=== PATIENT | female | born 1945 | race Caucasian/White ===

== ENCOUNTER 2020-02-17 10:34 | Inpatient (IN) | payer MEDICARE ==
[~2020-02-17] VITALS: Ht 167.6 cm; Wt 77.9 kg
[2020-02-17] VITALS (14 sets, daily range): BP systolic 80–119; BP diastolic 49–66
[2020-02-17] MEDS ORDERED: MIDAZOLAM HCL/PF 5 MG/5 ML VIAL. ONE ×2 (11:24→11:30)
--- NOTE | 2020-02-17 11:59 | RAD ---
Exam performed: One view chest HISTORY: Tube placement. DATE OF SERVICE: 02/17/2020. COMPARISON: None available Findings and impression: Single AP upright portable view of the chest is obtained. Heart size and mediastinal silhouette is wi thin limits of normal. The pulmonary vascular is unremarkable. Diffuse airspace infiltrates are seen in both lungs. No pleural effusion or pneumothorax is seen. There is a feeding tube terminating in th e stomach. Endotracheal tube terminates at the level of clavicles. Electronically signed by: Yolanda Gonzalez MD (02/17/2020 11:56 AM) [facility]
[2020-02-17] MEDS ORDERED: INFLUENZA VAX SCREEN BY RX. MC PRN (12:00)
--- NOTE | 2020-02-17 12:10 | NUR ---
Dr. Aguirre notified of pts admission, labs and medications reviewed. New orders received.
[2020-02-17 12:25] LABS: BASE EXCESS ABG -1 mmol/L (-3-3); HCO3 ABG 23 mmol/L (21-28); PCO2 ABG 35 mmHg (35-46); PO2 ABG 71 mmHg (65-108); SAT O2 ABG 93 % (92-99)
[2020-02-17 12:28] LABS: FIO2 ABG 100
[2020-02-17] MEDS ORDERED: POLYVINYL ALCOHOL 1.4% OPHTH SOLUTION 15ML BOTTLE. OU PRN (12:30)
[2020-02-17] MEDS: LISINOPRIL 20 MG TABLET PO SCH (12:30)
[2020-02-17] MEDS: guaiFENesin DM 600/30MG 1 TAB TAB.ER.12H PO SCH ×2 (12:30→20:23)
[2020-02-17] MEDS: AZITHROMYCIN 250 MG TABLET. PO SCH (12:30)
--- NOTE | 2020-02-17 12:40 | NUR ---
Dr. Tse notified of pts admission and consult. ABG results and vent settings reviewed. No new orders at this time.
[2020-02-17] MEDS: PIPERACILLIN/TAZOBACTAM 3.375 GM in IV NORMAL SALINE 50ML 50 ML IV SCH ×3 (13:14→23:56)
[2020-02-17] MEDS: FAMOTIDINE 20 MG/2 ML VIAL IVP SCH ×2 (13:14→20:31)
[2020-02-17] MEDS: DEXAMETHASONE SOD PHOS 4 MG/ML VIAL IVP SCH ×3 (13:14→23:56)
[2020-02-17] MEDS ORDERED: LISI20TA18 PO (14:00)
[2020-02-17] MEDS ORDERED: AMLO5TAB4 PO (14:00)
--- NOTE | 2020-02-17 14:50 | NUR ---
Pt admitted to room 112 from [facility] ICU via EMS on ventilator at 1115. Pt sedated on propofol. PT transferred to ICU bed, attached to monitoring equipment and out vent. See Vital signs and assessment for further details.
[2020-02-17] MEDS: PROPOFOL 100 ML IV PRN (15:25)
--- NOTE | 2020-02-17 17:00 | CONS ---
DATE OF CONSULTATION: 02/17/2020 PULMONARY CONSULTATION ATTENDING PHYSICIAN: Dr. Aguirre. REASON FOR CONSULTATION: Respiratory failure, ARDS, COVID-19 pneumonia. HISTORY OF PRESENT ILLNESS: The patient is a 74-year-old female who has past medical history of hypertension. She is a nonsmoker. She was diagnosed with COVID-19 infection 2 weeks ago. She presented to [facility] with progressive dyspnea and hypoxia. She was initially requiring high flow oxygen and was placed on BiPAP. However, due to persistent hypoxia. She was intubated at [facility] Emergency Room and transferred to our facility. At present, she is on assist control mode. She is on 100% oxygen with a PEEP of 6. She had a CT angiogram done at [facility]. I have reviewed the CT chest. There were diffuse extensive bilateral ground glass and interstitial/alveolar infiltrates. No pulmonary embolism was seen. Her chest x-ray post-intubation showed again bilateral diffuse infiltrates. Her arterial blood gases post-intubation showed a pH of 7.43, pCO2 of 35 and a pO2 of 71, bicarbonate of 23. This is on assist control rate of 16, tidal volume 450, 100% FiO2 and PEEP of 6. I have been asked to see her for further evaluation. She is intubated and sedated. A consultation was done via telemedicine. PAST MEDICAL HISTORY: Hypertension. PAST SURGICAL HISTORY: No recent surgeries. ALLERGIES: None. SOCIAL HISTORY: Nonsmoker. MEDICATIONS: All reviewed as listed in the MRAD including antibiotics, dexamethasone and Lovenox for DVT prophylaxis. REVIEW OF SYSTEMS: Unable to obtain from the patient as she is intubated. PHYSICAL EXAMINATION: On examination, which was done via telemedicine: GENERAL: She is intubated and sedated on assist control mode. There is no paradoxical breathing. She is not obese. EXTREMITIES: With no rash and no leg edema. LABORATORY DATA: From [facility] were reviewed. White cell count 14.5, hemoglobin 14.3, platelets 427. D-dimer 12.63. Sodium 138, potassium 3.6, chloride 101, bicarbonate 26, BUN 7, and creatinine 0.9. IMPRESSION: 1. Acute hypoxic respiratory failure secondary to COVID-19 pneumonia/ARDS/acute lung injury. 2. Abnormal CT chest with diffuse and extensive bilateral infiltrates consistent with COVID-19 pneumonia. Cannot exclude superimposed bacterial pneumonia. No evidence of pulmonary embolism. 3. High D-dimer. Commonly seen in patients with COVID-19 pneumonia. We will defer high dose DVT prophylaxis. 4. No significant reported tobacco history. RECOMMENDATIONS: 1. Continue present assist control mode at 100% FiO2, tidal volume 450. I would increase the PEEP from 6-7. 2. Follow ABGs and make necessary adjustments. 3. Continue sedation with Versed and fentanyl. 4. High dose DVT prophylaxis with Lovenox. 5. Empiric antibiotics with Levaquin and Zosyn. 6. Continue IV dexamethasone with slow and gradual taper over 10 days. 7. Discussed with RN. Imaging studies reviewed. Labs reviewed. Critical care time 33 minutes. KYM LOPEZ MD DR: MINDA/gabriela JOB#: [id number] / [id number]
[2020-02-17] MEDS: ENOXAPARIN 40 MG/0.4 ML SYRINGE. SQ SCH (20:31)
[2020-02-17] MEDS ORDERED: ENOXAPARIN 40 MG/0.4 ML SYRINGE. SQ SCH (21:00)
[2020-02-17] MEDS: MIDAZOLAM 100mg/100ml NS BAG 100 ML IV PRN (23:59)
[2020-02-18] VITALS (24 sets, daily range): BP systolic 84–108; BP diastolic 50–62
[2020-02-18] MEDS: PIPERACILLIN/TAZOBACTAM 3.375 GM in IV NORMAL SALINE 50ML 50 ML IV SCH ×3 (05:38→18:10)
[2020-02-18] MEDS: DEXAMETHASONE SOD PHOS 4 MG/ML VIAL IVP SCH ×3 (05:38→18:09)
[2020-02-18 05:58] LABS: BASO % 0 % (0-3); EOS % 0 % (0-3); HEMATOCRIT 36.5 % (36.0-47.0); LYMPH # 0.7 x10^3/uL (1.0-4.8); LYMPH % 7 % (24-48); MEAN CORPUSCULAR HEMOGLOBIN 29 pg (25-35); MEAN CORPUSCULAR HGB CONC 33 g/dL (31-37); MEAN CORPUSCULAR VOLUME 87 fL (79-100); MONO # 0.6 x10^3/uL (0.0-1.1); MONO % 5 % (0-9); NEUT # 9.8 x10^3/uL (1.8-7.7); NEUT % 88 % (31-73); PLATELET COUNT 279 x10^3/uL (140-400); RED BLOOD COUNT 4.18 x10^6/uL (3.50-5.40); RED CELL DISTRIBUTION WIDTH 13.5 % (11.5-14.5); WHITE BLOOD COUNT 11.1 x10^3/uL (4.0-11.0)
[2020-02-18 06:18] LABS: ALBUMIN 1.9 g/dL (3.4-5.0); ALBUMIN/GLOBULIN RATIO 0.4 (1.0-1.7); CALCIUM 8.4 mg/dL (8.5-10.1); CREATININE 0.7 mg/dL (0.6-1.0); GFR 81.6; POTASSIUM 3.5 mmol/L (3.5-5.1); TOTAL BILIRUBIN 0.3 mg/dL (0.2-1.0)
[2020-02-18] MEDS: guaiFENesin DM 600/30MG 1 TAB TAB.ER.12H PO SCH ×2 (07:41→20:34)
--- NOTE | 2020-02-18 07:58 | NUR ---
BP medications not given due to SBP below 100 because of sedation medication
[2020-02-18] MEDS: LISINOPRIL 20 MG TABLET PO SCH (07:59)
[2020-02-18] MEDS: FAMOTIDINE 20 MG/2 ML VIAL IVP SCH (08:11)
[2020-02-18] MEDS: AZITHROMYCIN 250 MG TABLET. PO SCH (08:11)
[2020-02-18] MEDS: ENOXAPARIN 40 MG/0.4 ML SYRINGE. SQ SCH ×2 (08:12→20:35)
[2020-02-18 08:25] LABS: BASE EXCESS ABG 0 mmol/L (-3-3); HCO3 ABG 24 mmol/L (21-28); PCO2 ABG 38 mmHg (35-46); PO2 ABG 73 mmHg (65-108); SAT O2 ABG 94 % (92-99)
[2020-02-18 08:28] LABS: FIO2 ABG 100%+7
--- NOTE | 2020-02-18 09:25 | HP ---
ADMIT DATE: 02/17/2020 HISTORY OF PRESENT ILLNESS: The patient is a 74-year-old female patient who presented to the Emergency Room of [facility] with increasing shortness of breath. She was tested positive for COVID-19 three weeks prior to admission and has had dry hacking cough. She did well until about 2-3 days ago when her cough has gotten progressively worse and started feeling weak. She called primary care physician and was advised to come to the Emergency Room. Her initial evaluation showed that she has bilateral pneumonic infiltrate and respiratory distress. She was admitted to the ICU of [facility], was started on antibiotics; however, she continued to worsen and despite being on 100% nonrebreather mask, her oxygen saturation was only 70% and therefore the patient was intubated and was transferred to [facility] ICU to continue on mechanical ventilation. Continue antibiotic therapy and to consult the [facility] [facility]. PAST MEDICAL HISTORY: Significant for hypertension. PAST SURGICAL HISTORY: Unremarkable. FAMILY HISTORY: Noncontributory. SOCIAL HISTORY: She does not smoke, drink alcohol or recreational drugs. Her code status is full. ALLERGIES: She has no known drug allergies. HOME MEDICATIONS: Consist of Cipro, Flagyl, amlodipine and lisinopril. REVIEW OF SYSTEMS: Unobtainable. PHYSICAL EXAMINATION: GENERAL: On examining her, the patient was intubated, mechanically ventilated. VITAL SIGNS: Her heart rate on arrival to the [facility] was 70, blood pressure was 106/65, temperature was 99, respiratory rate was 23, and oxygen saturation was 97% on FiO2 of 100%. HEAD, EYES, EARS, NOSE AND THROAT: Showed normocephalic, atraumatic. NECK: Supple. HEART: Normal first and second heart sounds. No gallop or murmur. CHEST: Shows central trachea, equal bilateral expansion, air entry expanse. I could not really appreciate any crepitation or rhonchi anteriorly. ABDOMEN: Distended, soft, nontender. NEUROLOGIC: She is sedated; however she moves all extremities spontaneously. LABORATORY DATA: Done at [facility] showed her white cell count was 9600, hemoglobin 13, hematocrit 39, MCV 19 and platelet count 277,000. Manual differential showed 92% polymorphs, 6% lymphocytes and 2% monocytes. Her serum sodium was 137, potassium 3.8, chloride 103, bicarbonate 25, anion gap of 9, BUN 13, creatinine 0.8, estimated GFR was 70 mL per minute. Her glucose was 133, calcium was 8.2. Her lactic acid was down to 1.5. Her blood gases on admission; pH 7.49, pCO2 of 32, pO2 of 57, bicarbonate 24, and oxygen saturation was 91% on FiO2 of 58%. Her prothrombin time was 10.8, INR 1, aPTT was 57 and D-dimer was 12.63. Urinalysis showed the urine was yellow, clear with a pH of 7, specific gravity of 1.010, urine was negative for protein, glucose, ketones, small amount of blood, negative for nitrite and leukocyte esterase with 3-5 rbc's, 5-10 wbc's, and very few bacteria. Urine drug screen was negative. The patient has had a chest x-ray on admission, which showed that the patient has multifocal airspace consolidation involving the lateral right upper lobe, left upper lobe and lingula, was treated with multifocal pneumonia, pulmonary edema is less likely consideration. She did have CT angio as her D-dimer was extremely high and the CT scan of the chest showed no evidence of pulmonary arterial emboli, extensive ground glass and consolidative pulmonary opacities most typical of an infectious inflammatory process. A component of ARDS, noncardiogenic pulmonary edema could also be a possibility given the patient's diagnosis of COVID-19 infection, COVID pneumonia likely at times with these findings, peripheral bilateral ground glass opacities with and without consolidation or crazy waving or reverse halo sign. Other processes such as influenza, pneumonia, organizing pneumonia can be seen with ____ and connective tissue disease can cause similar imaging pattern. She has a 4 cm right thyroid mass and mild ____ adenopathy. ASSESSMENT AND PLAN: The patient was treated with IV antibiotic in the form of levofloxacin, piperacillin and Zithromax as well as dexamethasone together was continued on her lisinopril and amlodipine and was given a dose of furosemide before she was transferred to [facility] with the final admission diagnosis of COVID-19 pneumonia, acute hypoxic respiratory failure, ARDS,hypertension SEUN SOSA MD DR: GUERLINE/gabriela JOB#: [id number] / [id number]
--- NOTE | 2020-02-18 09:41 | PN ---
DATE: 02/18/2020 SUBJECTIVE: The patient is resting, slightly propped up in bed, continued to be sedated, intubated and mechanically ventilated. PHYSICAL EXAMINATION: GENERAL: When I examined her, there was no pallor, jaundice, cyanosis or thyromegaly. No jugular venous distention. No lower limb edema. VITAL SIGNS: Her heart rate was 51, blood pressure was 101/60, temperature 99, respiratory rate was 17 and oxygen saturation was 99% on FiO2 of 100%. HEAD, EYES, EARS, NOSE, AND THROAT: Showed normocephalic, atraumatic. She has orotracheal and orogastric tube in place. NECK: Supple. HEART: Normal first and second heart sounds. No gallop, rub or murmur. CHEST: Clear to auscultation. No crepitation or rhonchi anteriorly. ABDOMEN: Distended, soft, nontender. NEUROLOGIC: She is sedated, but able to move all her extremities spontaneously. Her intake and output are incompletely recorded. LABORATORY DATA: Her lab work this morning showed a white cell count of 11,100; hemoglobin 12; hematocrit 36; MCV 87 and platelet count of 279,000. Her chemistry showed a serum sodium 141, potassium 3.5, chloride 107, bicarbonate 28, anion gap of 66, BUN 24, creatinine 0.7, estimated GFR was 81 mL per minute. Her glucose 145, calcium was 8.4. Total bilirubin, AST, ALT, alkaline phosphatase were normal. Total protein 7, albumin was 1.9. Her blood gases this morning showed a pH of 7.43, pCO2 of 35, pO2 of 71, bicarbonate 23, and oxygen saturation was 93% on FiO2 of 100%. Her chest x-ray again showed the heart size and mediastinal silhouette as within normal limits. She had pulmonary vasculature unremarkable. She has diffuse airspace infiltrates, are seen in both lungs. No pleural effusion or pneumothorax seen. There is a feeding tube terminating in the stomach. Endotracheal tube terminates at the level of the clavicle. ASSESSMENT: 1. COVID-19 pneumonia. 2. Acute hypoxic respiratory failure. 3. Acute respiratory distress syndrome. 4. Hypertension, however, the patient is in fact hypotensive. PLAN: Obviously to continue on levofloxacin. Given her blood pressure, I will discontinue her amlodipine and lisinopril. She is already on Zosyn and levofloxacin and I will probably discontinue her Zithromax. We have already consulted the eviscerator. SEUN SOSA MD DR: GUERLINE/gabriela JOB#: [id number] / [id number]
--- NOTE | 2020-02-18 09:43 | PDOC ---
PULMONARY PROGRESS NOTES DATE: 02/18/20 TIME: 09:38 Subjective Pt. is on vent support 100% and PEEP of 7 afebrile overnight no concerns from nursing Vitals Vital Signs Date Time Temp Pulse Resp B/P (MAP) Pulse Ox O2 Delivery O2 Flow Rate FiO2 02/18/20 08:00 Mechanical Ventilator 02/18/20 08:00 98.0 52 16 102/59 (73) 99 98.0 Comments Pt. seen during visual exam preformed, RRR VENT no distress or accessory muscle use no obvious edema or rash Labs Laboratory Tests Test 02/17/20 12:14 02/18/20 05:30 02/18/20 08:15 O2 Saturation 93 % (92-99) 94 % (92-99) Arterial Blood pH 7.43 (7.35-7.45) 7.42 (7.35-7.45) Arterial Blood pCO2 at Patient Temp 35 mmHg (35-46) 38 mmHg (35-46) Arterial Blood pO2 at Patient Temp 71 mmHg (65-108) 73 mmHg (65-108) Arterial Blood HCO3 23 mmol/L (21-28) 24 mmol/L (21-28) Arterial Blood Base Excess -1 mmol/L (-3-3) 0 mmol/L (-3-3) FiO2 100 100%+7 White Blood Count 11.1 x10^3/uL (4.0-11.0) Red Blood Count 4.18 x10^6/uL (3.50-5.40) Hemoglobin 12.0 g/dL (12.0-15.5) Hematocrit 36.5 % (36.0-47.0) Mean Corpuscular Volume 87 fL (79-100) Mean Corpuscular Hemoglobin 29 pg (25-35) Mean Corpuscular Hemoglobin Concent 33 g/dL (31-37) Red Cell Distribution Width 13.5 % (11.5-14.5) Platelet Count 279 x10^3/uL (140-400) Neutrophils (%) (Auto) 88 % (31-73) Lymphocytes (%) (Auto) 7 % (24-48) Monocytes (%) (Auto) 5 % (0-9) Eosinophils (%) (Auto) 0 % (0-3) Basophils (%) (Auto) 0 % (0-3) Neutrophils # (Auto) 9.8 x10^3/uL (1.8-7.7) Lymphocytes # (Auto) 0.7 x10^3/uL (1.0-4.8) Monocytes # (Auto) 0.6 x10^3/uL (0.0-1.1) Eosinophils # (Auto) 0.0 x10^3/uL (0.0-0.7) Basophils # (Auto) 0.0 x10^3/uL (0.0-0.2) Sodium Level 141 mmol/L (136-145) Potassium Level 3.5 mmol/L (3.5-5.1) Chloride Level 107 mmol/L (98-107) Carbon Dioxide Level 28 mmol/L (21-32) Anion Gap 6 (6-14) Blood Urea Nitrogen 24 mg/dL (7-20) Creatinine 0.7 mg/dL (0.6-1.0) Estimated GFR (Cockcroft-Gault) 81.6 BUN/Creatinine Ratio 34 (6-20) Glucose Level 145 mg/dL (70-99) Calcium Level 8.4 mg/dL (8.5-10.1) Total Bilirubin 0.3 mg/dL (0.2-1.0) Aspartate Amino Transf (AST/SGOT) 19 U/L (15-37) Alanine Aminotransferase (ALT/SGPT) 25 U/L (14-59) Alkaline Phosphatase 65 U/L (46-116) Total Protein 7.0 g/dL (6.4-8.2) Albumin 1.9 g/dL (3.4-5.0) Albumin/Globulin Ratio 0.4 (1.0-1.7) Laboratory Tests Test 02/17/20 12:14 02/18/20 05:30 02/18/20 08:15 O2 Saturation 93 % (92-99) 94 % (92-99) Arterial Blood pH 7.43 (7.35-7.45) 7.42 (7.35-7.45) Arterial Blood pCO2 at Patient Temp 35 mmHg (35-46) 38 mmHg (35-46) Arterial Blood pO2 at Patient Temp 71 mmHg (65-108) 73 mmHg (65-108) Arterial Blood HCO3 23 mmol/L (21-28) 24 mmol/L (21-28) Arterial Blood Base Excess -1 mmol/L (-3-3) 0 mmol/L (-3-3) FiO2 100 100%+7 White Blood Count 11.1 x10^3/uL (4.0-11.0) Red Blood Count 4.18 x10^6/uL (3.50-5.40) Hemoglobin 12.0 g/dL (12.0-15.5) Hematocrit 36.5 % (36.0-47.0) Mean Corpuscular Volume 87 fL (79-100) Mean Corpuscular Hemoglobin 29 pg (25-35) Mean Corpuscular Hemoglobin Concent 33 g/dL (31-37) Red Cell Distribution Width 13.5 % (11.5-14.5) Platelet Count 279 x10^3/uL (140-400) Neutrophils (%) (Auto) 88 % (31-73) Lymphocytes (%) (Auto) 7 % (24-48) Monocytes (%) (Auto) 5 % (0-9) Eosinophils (%) (Auto) 0 % (0-3) Basophils (%) (Auto) 0 % (0-3) Neutrophils # (Auto) 9.8 x10^3/uL (1.8-7.7) Lymphocytes # (Auto) 0.7 x10^3/uL (1.0-4.8) Monocytes # (Auto) 0.6 x10^3/uL (0.0-1.1) Eosinophils # (Auto) 0.0 x10^3/uL (0.0-0.7) Basophils # (Auto) 0.0 x10^3/uL (0.0-0.2) Sodium Level 141 mmol/L (136-145) Potassium Level 3.5 mmol/L (3.5-5.1) Chloride Level 107 mmol/L (98-107) Carbon Dioxide Level 28 mmol/L (21-32) Anion Gap 6 (6-14) Blood Urea Nitrogen 24 mg/dL (7-20) Creatinine 0.7 mg/dL (0.6-1.0) Estimated GFR (Cockcroft-Gault) 81.6 BUN/Creatinine Ratio 34 (6-20) Glucose Level 145 mg/dL (70-99) Calcium Level 8.4 mg/dL (8.5-10.1) Total Bilirubin 0.3 mg/dL (0.2-1.0) Aspartate Amino Transf (AST/SGOT) 19 U/L (15-37) Alanine Aminotransferase (ALT/SGPT) 25 U/L (14-59) Alkaline Phosphatase 65 U/L (46-116) Total Protein 7.0 g/dL (6.4-8.2) Albumin 1.9 g/dL (3.4-5.0) Albumin/Globulin Ratio 0.4 (1.0-1.7) Medications Active Scripts Medications Dose Route/Sig Max Daily Dose Days Date Category Lisinopril 20 Mg Tablet 1 Tab PO DAILY 02/17/20 Reported Norvasc (Amlodipine Besylate) 5 Mg Tablet 1 Tab PO DAILY 02/17/20 Reported Comments CXR Single AP upright portable view of the chest is obtained. Heart size and mediastinal silhouette is within limits of normal. The pulmonary vascular is unremarkable. Diffuse airspace infiltrates are seen in both lungs. No pleural effusion or pneumothorax is seen. There is a feeding tube terminating in the stomach. Endotracheal tube terminates at the level of clavicles. Impression . IMPRESSION: 1. Acute hypoxic respiratory failure secondary to COVID-19 pneumonia/ARDS/acute lung injury. 2. Abnormal CT chest with diffuse and extensive bilateral infiltrates consistent with COVID-19 pneumonia. Cannot exclude superimposed bacterial pneumonia. No evidence of pulmonary embolism. 3. High D-dimer. Commonly seen in patients with COVID-19 pneumonia. We will defer high dose DVT prophylaxis. 4. No significant reported tobacco history. Plan . RECOMMENDATIONS: Continue current vent support Fi02 100% and PEEP of 7 Follow CXR/ABG, no changes today Continue steroids witht aper Continue empiric ABX: levaquin and zosyn Consult supervisor hardboard for Tube feeding recs DVT/GI PPX D/W RN and RT Pt. is FULL CODE Critical care time 30 minutes KYM LOPEZ MD Feb 18, 2020 09:43
[2020-02-18 11:36] LABS: % LYMPHS 5 % (24-48); % MONOS 2 % (0-10); % SEGS 93 % (35-66); PLT ESTIMATE ADEQUATE (ADEQUATE)
[2020-02-18] MEDS: MIDAZOLAM 100mg/100ml NS BAG 100 ML IV PRN (18:09)
[2020-02-19] VITALS (24 sets, daily range): BP systolic 97–133; BP diastolic 50–82
[2020-02-19] MEDS: DEXAMETHASONE SOD PHOS 4 MG/ML VIAL IVP SCH ×4 (00:20→17:54)
[2020-02-19] MEDS: PIPERACILLIN/TAZOBACTAM 3.375 GM in IV NORMAL SALINE 50ML 50 ML IV SCH ×4 (00:20→17:55)
[2020-02-19 04:56] LABS: HEMATOCRIT 34.5 % (36.0-47.0); HEMOGLOBIN 11.4 g/dL (12.0-15.5); RED BLOOD COUNT 3.93 x10^6/uL (3.50-5.40); RED CELL DISTRIBUTION WIDTH 13.6 % (11.5-14.5); WHITE BLOOD COUNT 11.4 x10^3/uL (4.0-11.0)
[2020-02-19 05:20] LABS: ALBUMIN 1.8 g/dL (3.4-5.0); ALBUMIN/GLOBULIN RATIO 0.4 (1.0-1.7); CALCIUM 8.2 mg/dL (8.5-10.1); CREATININE 0.7 mg/dL (0.6-1.0); GFR 81.6; POTASSIUM 3.9 mmol/L (3.5-5.1); TOTAL BILIRUBIN 0.4 mg/dL (0.2-1.0); TOTAL PROTEIN 6.6 g/dL (6.4-8.2)
[2020-02-19] MEDS: MIDAZOLAM 100mg/100ml NS BAG 100 ML IV PRN ×2 (06:30→17:54)
--- NOTE | 2020-02-19 07:20 | PN ---
DATE: 02/19/2020 SUBJECTIVE: The patient is resting, slightly propped up in bed, no apparent distress. She continued to be sedated, intubated and mechanically ventilated. Nursing staff did not voice any concerns and she had an uneventful night. PHYSICAL EXAMINATION: GENERAL: When I examined her, she looked pale, but no jaundice, cyanosis or thyromegaly. No jugular venous distention or limb edema. VITAL SIGNS: His heart rate was 46, blood pressure was 109/62, temperature was 98.4, respiratory rate was 16, and oxygen saturation was 100% on FiO2 of 100%. HEENT: Showed normocephalic, atraumatic. She has orotracheal and orogastric tube. NECK: Supple. HEART: Normal first and second heart sounds. No gallop or murmur CHEST: Clear to auscultation. No crepitation or rhonchi. ABDOMEN: Soft, nontender. NEUROLOGIC: She is sedated. Her intake over the last 24 hours was 430, output was 2600. LABORATORY DATA: As of this morning, her white cell count was 11,400, hemoglobin 11.4, hematocrit 34.5, MCV 88 and platelet count 267,000. Serum sodium was 144, potassium 3.9, chloride 110, bicarbonate 27, anion gap of 7, BUN 29, creatinine 0.7, estimated GFR was 81 mL per minute. Her glucose 131, calcium was 8.2. Total bilirubin, ALT, alkaline phosphatase were normal. Total protein 6.6, albumin was 1.8. Her blood gases as of yesterday showed a pH of 7.44, pCO2 of 38, pO2 of 73, bicarbonate 24, and oxygen saturation was 94% on FiO2 of 100%. Her chest x-ray showed the heart size and mediastinal silhouette are within normal limits. The pulmonary vasculature is unremarkable. Diffuse airspace infiltrates are seen in both lungs. No pleural effusion or pneumothorax seen. The feeding tube terminated in the stomach. Endotracheal tube terminates at the level of the clavicle. ASSESSMENT: 1. COVID-19 pneumonia. 2. Acute hypoxic respiratory failure. 3. Acute respiratory distress syndrome. 4. Hypertension, however, in fact, the patient was borderline hypotensive. 5. Elevated D-dimer; however, CT angio of the chest was negative for DVT. PLAN: To continue with IV antibiotic in the form of Zosyn and levofloxacin. I discontinued her Zithromax as well as amlodipine and lisinopril given that she is on hypotensive. Continue with steroids. Continue with DVT prophylaxis. SEUN SOSA MD DR: GUERLINE/gabriela JOB#: [id number] / [id number]
[2020-02-19 08:16] LABS: BASE EXCESS ABG 1 mmol/L (-3-3); HCO3 ABG 26 mmol/L (21-28); PCO2 ABG 41 mmHg (35-46); PO2 ABG 77 mmHg (65-108); SAT O2 ABG 95 % (92-99)
[2020-02-19 08:39] LABS: FIO2 ABG 100% VENT
[2020-02-19] MEDS: ENOXAPARIN 40 MG/0.4 ML SYRINGE. SQ SCH ×2 (08:59→21:00)
[2020-02-19] MEDS: FAMOTIDINE 20 MG/2 ML VIAL IVP SCH (09:00)
[2020-02-19] MEDS: guaiFENesin DM 600/30MG 1 TAB TAB.ER.12H PO SCH ×2 (09:00→21:00)
--- NOTE | 2020-02-19 11:11 | PDOC ---
PULMONARY PROGRESS NOTES DATE: 02/19/20 TIME: 11:10 Subjective Pt. is on vent support 100% and PEEP of 7 afebrile overnight no concerns from nursing Vitals Vital Signs Date Time Temp Pulse Resp B/P (MAP) Pulse Ox O2 Delivery O2 Flow Rate FiO2 02/19/20 09:01 Ventilator 02/19/20 09:00 45 16 105/59 (74) 100 02/19/20 08:00 98.6 98.6 Comments Pt. seen during ID- pandemic visual exam preformed, RRR VENT no distress or accessory muscle use no obvious edema or rash Labs Laboratory Tests Test 02/17/20 12:14 02/18/20 05:30 02/18/20 08:15 02/19/20 01:28 O2 Saturation 93 % (92-99) 94 % (92-99) Arterial Blood pH 7.43 (7.35-7.45) 7.42 (7.35-7.45) Arterial Blood pCO2 at Patient Temp 35 mmHg (35-46) 38 mmHg (35-46) Arterial Blood pO2 at Patient Temp 71 mmHg (65-108) 73 mmHg (65-108) Arterial Blood HCO3 23 mmol/L (21-28) 24 mmol/L (21-28) Arterial Blood Base Excess -1 mmol/L (-3-3) 0 mmol/L (-3-3) FiO2 100 100%+7 White Blood Count 11.1 x10^3/uL (4.0-11.0) Red Blood Count 4.18 x10^6/uL (3.50-5.40) Hemoglobin 12.0 g/dL (12.0-15.5) Hematocrit 36.5 % (36.0-47.0) Mean Corpuscular Volume 87 fL (79-100) Mean Corpuscular Hemoglobin 29 pg (25-35) Mean Corpuscular Hemoglobin Concent 33 g/dL (31-37) Red Cell Distribution Width 13.5 % (11.5-14.5) Platelet Count 279 x10^3/uL (140-400) Neutrophils (%) (Auto) 88 % (31-73) Lymphocytes (%) (Auto) 7 % (24-48) Monocytes (%) (Auto) 5 % (0-9) Eosinophils (%) (Auto) 0 % (0-3) Basophils (%) (Auto) 0 % (0-3) Neutrophils # (Auto) 9.8 x10^3/uL (1.8-7.7) Lymphocytes # (Auto) 0.7 x10^3/uL (1.0-4.8) Monocytes # (Auto) 0.6 x10^3/uL (0.0-1.1) Eosinophils # (Auto) 0.0 x10^3/uL (0.0-0.7) Basophils # (Auto) 0.0 x10^3/uL (0.0-0.2) Segmented Neutrophils % 93 % (35-66) Lymphocytes % 5 % (24-48) Monocytes % 2 % (0-10) Platelet Estimate Adequate (ADEQUATE) Sodium Level 141 mmol/L (136-145) Potassium Level 3.5 mmol/L (3.5-5.1) Chloride Level 107 mmol/L (98-107) Carbon Dioxide Level 28 mmol/L (21-32) Anion Gap 6 (6-14) Blood Urea Nitrogen 24 mg/dL (7-20) Creatinine 0.7 mg/dL (0.6-1.0) Estimated GFR (Cockcroft-Gault) 81.6 BUN/Creatinine Ratio 34 (6-20) Glucose Level 145 mg/dL (70-99) Calcium Level 8.4 mg/dL (8.5-10.1) Total Bilirubin 0.3 mg/dL (0.2-1.0) Aspartate Amino Transf (AST/SGOT) 19 U/L (15-37) Alanine Aminotransferase (ALT/SGPT) 25 U/L (14-59) Alkaline Phosphatase 65 U/L (46-116) Total Protein 7.0 g/dL (6.4-8.2) Albumin 1.9 g/dL (3.4-5.0) Albumin/Globulin Ratio 0.4 (1.0-1.7) Glucose (Fingerstick) 310 mg/dL (70-99) Test 02/19/20 04:30 02/19/20 07:55 White Blood Count 11.4 x10^3/uL (4.0-11.0) Red Blood Count 3.93 x10^6/uL (3.50-5.40) Hemoglobin 11.4 g/dL (12.0-15.5) Hematocrit 34.5 % (36.0-47.0) Mean Corpuscular Volume 88 fL (79-100) Mean Corpuscular Hemoglobin 29 pg (25-35) Mean Corpuscular Hemoglobin Concent 33 g/dL (31-37) Red Cell Distribution Width 13.6 % (11.5-14.5) Platelet Count 267 x10^3/uL (140-400) Sodium Level 144 mmol/L (136-145) Potassium Level 3.9 mmol/L (3.5-5.1) Chloride Level 110 mmol/L (98-107) Carbon Dioxide Level 27 mmol/L (21-32) Anion Gap 7 (6-14) Blood Urea Nitrogen 29 mg/dL (7-20) Creatinine 0.7 mg/dL (0.6-1.0) Estimated GFR (Cockcroft-Gault) 81.6 BUN/Creatinine Ratio 41 (6-20) Glucose Level 131 mg/dL (70-99) Calcium Level 8.2 mg/dL (8.5-10.1) Total Bilirubin 0.4 mg/dL (0.2-1.0) Aspartate Amino Transf (AST/SGOT) 21 U/L (15-37) Alanine Aminotransferase (ALT/SGPT) 19 U/L (14-59) Alkaline Phosphatase 59 U/L (46-116) Total Protein 6.6 g/dL (6.4-8.2) Albumin 1.8 g/dL (3.4-5.0) Albumin/Globulin Ratio 0.4 (1.0-1.7) O2 Saturation 95 % (92-99) Arterial Blood pH 7.42 (7.35-7.45) Arterial Blood pCO2 at Patient Temp 41 mmHg (35-46) Arterial Blood pO2 at Patient Temp 77 mmHg (65-108) Arterial Blood HCO3 26 mmol/L (21-28) Arterial Blood Base Excess 1 mmol/L (-3-3) FiO2 100% vent Laboratory Tests Test 02/19/20 01:28 02/19/20 04:30 02/19/20 07:55 Glucose (Fingerstick) 310 mg/dL (70-99) White Blood Count 11.4 x10^3/uL (4.0-11.0) Red Blood Count 3.93 x10^6/uL (3.50-5.40) Hemoglobin 11.4 g/dL (12.0-15.5) Hematocrit 34.5 % (36.0-47.0) Mean Corpuscular Volume 88 fL (79-100) Mean Corpuscular Hemoglobin 29 pg (25-35) Mean Corpuscular Hemoglobin Concent 33 g/dL (31-37) Red Cell Distribution Width 13.6 % (11.5-14.5) Platelet Count 267 x10^3/uL (140-400) Sodium Level 144 mmol/L (136-145) Potassium Level 3.9 mmol/L (3.5-5.1) Chloride Level 110 mmol/L (98-107) Carbon Dioxide Level 27 mmol/L (21-32) Anion Gap 7 (6-14) Blood Urea Nitrogen 29 mg/dL (7-20) Creatinine 0.7 mg/dL (0.6-1.0) Estimated GFR (Cockcroft-Gault) 81.6 BUN/Creatinine Ratio 41 (6-20) Glucose Level 131 mg/dL (70-99) Calcium Level 8.2 mg/dL (8.5-10.1) Total Bilirubin 0.4 mg/dL (0.2-1.0) Aspartate Amino Transf (AST/SGOT) 21 U/L (15-37) Alanine Aminotransferase (ALT/SGPT) 19 U/L (14-59) Alkaline Phosphatase 59 U/L (46-116) Total Protein 6.6 g/dL (6.4-8.2) Albumin 1.8 g/dL (3.4-5.0) Albumin/Globulin Ratio 0.4 (1.0-1.7) O2 Saturation 95 % (92-99) Arterial Blood pH 7.42 (7.35-7.45) Arterial Blood pCO2 at Patient Temp 41 mmHg (35-46) Arterial Blood pO2 at Patient Temp 77 mmHg (65-108) Arterial Blood HCO3 26 mmol/L (21-28) Arterial Blood Base Excess 1 mmol/L (-3-3) FiO2 100% vent Medications Active Scripts Medications Dose Route/Sig Max Daily Dose Days Date Category Lisinopril 20 Mg Tablet 1 Tab PO DAILY 02/17/20 Reported Norvasc (Amlodipine Besylate) 5 Mg Tablet 1 Tab PO DAILY 12/25/20 Reported Comments CXR Single AP upright portable view of the chest is obtained. Heart size and mediastinal silhouette is within limits of normal. The pulmonary vascular is unremarkable. Diffuse airspace infiltrates are seen in both lungs. No pleural effusion or pneumothorax is seen. There is a feeding tube terminating in the stomach. Endotracheal tube terminates at the level of clavicles. Impression . IMPRESSION: 1. Acute hypoxic respiratory failure secondary to COVID-19 pneumonia/ARDS/acute lung injury. 2. Abnormal CT chest with diffuse and extensive bilateral infiltrates consistent with COVID-19 pneumonia. Cannot exclude superimposed bacterial pneumonia. No evidence of pulmonary embolism. 3. High D-dimer. Commonly seen in patients with COVID-19 pneumonia. We will defer high dose DVT prophylaxis. 4. No significant reported tobacco history. Plan . RECOMMENDATIONS: Continue current vent support Fi02 100% and PEEP of 7 , wean FIO2 today Follow CXR/ABG, Continue steroids witht aper Continue empiric ABX: levaquin and zosyn Tube feeding DVT/GI PPX D/W RN and RT Pt. is FULL CODE Critical care time 30 minutes KYM LOPEZ MD Feb 19, 2020 11:11
[2020-02-20] VITALS (25 sets, daily range): BP systolic 100–148; BP diastolic 53–124
[2020-02-20] MEDS: PIPERACILLIN/TAZOBACTAM 3.375 GM in IV NORMAL SALINE 50ML 50 ML IV SCH ×5 (00:12→23:31)
[2020-02-20] MEDS: DEXAMETHASONE SOD PHOS 4 MG/ML VIAL IVP SCH ×2 (00:12→05:36)
--- NOTE | 2020-02-20 06:11 | RAD ---
XR CHEST 1V 02/20/2020 5:10 AM INDICATION: Respiratory failure COMPARISON: 02/17/2020 TECHNIQUE: Portable frontal view of the chest is provided. FINDINGS/ IMPRESSION: The cardiomediastinal silhouette is similar in appearance. Endotracheal tube is in similar position. Nasogastric tube is identified with the side port above the level of the diaphragm. This could be adv anced 7.3 cm.. There is improving aeration of the lungs with persistent subpleural interstitial and alveolar airspac e disease with more confluent opacity in the right lateral upper lobe and lateral left midlung. No pneumothorax. Pulmonary emphysematous changes are present. No suspicious osseous abnormality. Electronically signed by: Candace Bailey MD (02/20/2020 6:09 AM) APOLINAR
--- NOTE | 2020-02-20 07:45 | PN ---
DATE: 02/20/2020 SUBJECTIVE: The patient continued to be intubated, sedated, mechanically ventilated. She is now maintaining her oxygen saturation at 100% on FiO2 of 90%. Nursing staff did not voice any concern except she continued to have bradycardia between mid 30s to mid 40s. PHYSICAL EXAMINATION: GENERAL: When I examined her, she looked pale, no jaundice, cyanosis, or thyromegaly. No jugular venous distention. No lower limb edema. VITAL SIGNS: Her heart rate was 38, blood pressure was 144/62, temperature 98.4, respiratory rate was 16, and oxygen saturation was 100%. HEAD, EYES, EARS, NOSE AND THROAT: Showed normocephalic, atraumatic. She has orotracheal and orogastric tube in place. NECK: Supple. HEART: Normal first and second heart sounds. No gallop, rub or murmur. CHEST: Clear to auscultation. No crepitation or rhonchi. ABDOMEN: Distended, soft, nontender. NEUROLOGIC: She is heavily sedated. Her intake over the last 24 hours was 600, output was 500. LABORATORY DATA: As of yesterday, her white cell count was 11,400, hemoglobin 11.4, hematocrit 34.5, MCV 88 and platelet count 257. Her chemistry showed a serum sodium 144, potassium 3.9, chloride 110, bicarbonate 27, anion gap of 7, BUN 29, creatinine 0.7, estimated GFR was 82 mL per minute. Her glucose 131, calcium was 8.2. Total bilirubin, AST, ALT, alkaline phosphatase were normal. Total protein 6.6, albumin was 1.8. As of yesterday, her arterial blood gas showed a pH of 7.42, pCO2 of 41, pO2 of 77, bicarbonate 26 and oxygen saturation was 95% on 100%. Today's labs are still pending. Today's chest x-ray showed that the cardiomediastinal silhouette is similar in appearance. Endotracheal tube is in similar position, nasogastric tube was identified with the side port above the level of the diaphragm; this could be advanced 7.3 cm. There is improving aeration of the lungs with persistent subpleural interstitial and alveolar airspace disease with more confluent opacity in the right lateral upper lobe and lateral left mid lung. No pneumothorax, pulmonary emphysematous changes are present. No suspicious osseous abnormality. ASSESSMENT: 1. COVID-19 pneumonia. 2. Acute hypoxic respiratory failure. 3. Acute respiratory distress syndrome. 4. Hypertension, however, the patient is borderline hypotensive. I discontinued her antihypertensive medication. 5. As elevated D-dimer, however, CT scan of the chest was negative for deep vein thrombosis. 6. Severe protein-calorie malnutrition, serum albumin is only 1.8 g/dL. PLAN: To continue with mechanical ventilation. Wean as tolerated. Continue IV antibiotic. Continue with dexamethasone. Continue gastrointestinal and deep vein thrombosis prophylaxis. SEUN SOSA MD DR: GUERLINE/gabriela JOB#: [id number] / [id number]
[2020-02-20 08:22] LABS: BASE EXCESS ABG 2 mmol/L (-3-3); HCO3 ABG 27 mmol/L (21-28); PCO2 ABG 42 mmHg (35-46); PO2 ABG 82 mmHg (65-108); SAT O2 ABG 96 % (92-99)
[2020-02-20 08:24] LABS: FIO2 ABG 90
[2020-02-20] MEDS: guaiFENesin DM 600/30MG 1 TAB TAB.ER.12H PO SCH ×2 (09:00→19:10)
[2020-02-20] MEDS: ENOXAPARIN 40 MG/0.4 ML SYRINGE. SQ SCH ×2 (09:04→21:26)
[2020-02-20] MEDS: FAMOTIDINE 20 MG/2 ML VIAL IVP SCH (09:05)
[2020-02-20 11:01] LABS: CALCIUM 8.5 mg/dL (8.5-10.1); CREATININE 0.7 mg/dL (0.6-1.0); GFR 81.6; POTASSIUM 4.1 mmol/L (3.5-5.1)
--- NOTE | 2020-02-20 11:35 | PDOC ---
PULMONARY PROGRESS NOTES DATE: 02/20/20 TIME: 11:32 Subjective Pt. is on vent support 90% and PEEP of 7 afebrile overnight no concerns from nursing Vitals Vital Signs Date Time Temp Pulse Resp B/P (MAP) Pulse Ox O2 Delivery O2 Flow Rate FiO2 02/20/20 11:25 100 Ventilator 02/20/20 10:00 37 16 141/68 (92) 02/20/20 08:00 98.7 98.7 Comments Pt. seen during pandemic visual exam preformed, RRR VENT no distress or accessory muscle use no obvious edema or rash Labs Laboratory Tests Test 02/19/20 01:28 02/19/20 04:30 02/19/20 07:55 02/20/20 07:45 Glucose (Fingerstick) 310 mg/dL (70-99) White Blood Count 11.4 x10^3/uL (4.0-11.0) Red Blood Count 3.93 x10^6/uL (3.50-5.40) Hemoglobin 11.4 g/dL (12.0-15.5) Hematocrit 34.5 % (36.0-47.0) Mean Corpuscular Volume 88 fL (79-100) Mean Corpuscular Hemoglobin 29 pg (25-35) Mean Corpuscular Hemoglobin Concent 33 g/dL (31-37) Red Cell Distribution Width 13.6 % (11.5-14.5) Platelet Count 267 x10^3/uL (140-400) Sodium Level 144 mmol/L (136-145) Potassium Level 3.9 mmol/L (3.5-5.1) Chloride Level 110 mmol/L (98-107) Carbon Dioxide Level 27 mmol/L (21-32) Anion Gap 7 (6-14) Blood Urea Nitrogen 29 mg/dL (7-20) Creatinine 0.7 mg/dL (0.6-1.0) Estimated GFR (Cockcroft-Gault) 81.6 BUN/Creatinine Ratio 41 (6-20) Glucose Level 131 mg/dL (70-99) Calcium Level 8.2 mg/dL (8.5-10.1) Total Bilirubin 0.4 mg/dL (0.2-1.0) Aspartate Amino Transf (AST/SGOT) 21 U/L (15-37) Alanine Aminotransferase (ALT/SGPT) 19 U/L (14-59) Alkaline Phosphatase 59 U/L (46-116) Total Protein 6.6 g/dL (6.4-8.2) Albumin 1.8 g/dL (3.4-5.0) Albumin/Globulin Ratio 0.4 (1.0-1.7) O2 Saturation 95 % (92-99) 96 % (92-99) Arterial Blood pH 7.42 (7.35-7.45) 7.42 (7.35-7.45) Arterial Blood pCO2 at Patient Temp 41 mmHg (35-46) 42 mmHg (35-46) Arterial Blood pO2 at Patient Temp 77 mmHg (65-108) 82 mmHg (65-108) Arterial Blood HCO3 26 mmol/L (21-28) 27 mmol/L (21-28) Arterial Blood Base Excess 1 mmol/L (-3-3) 2 mmol/L (-3-3) FiO2 100% vent 90 Test 02/20/20 10:30 D-Dimer (Arleen) 2.21 ug/mlFEU (0.00-0.50) Sodium Level 150 mmol/L (136-145) Potassium Level 4.1 mmol/L (3.5-5.1) Chloride Level 113 mmol/L (98-107) Carbon Dioxide Level 27 mmol/L (21-32) Anion Gap 10 (6-14) Blood Urea Nitrogen 31 mg/dL (7-20) Creatinine 0.7 mg/dL (0.6-1.0) Estimated GFR (Cockcroft-Gault) 81.6 Glucose Level 138 mg/dL (70-99) Calcium Level 8.5 mg/dL (8.5-10.1) Laboratory Tests Test 02/20/20 07:45 02/20/20 10:30 O2 Saturation 96 % (92-99) Arterial Blood pH 7.42 (7.35-7.45) Arterial Blood pCO2 at Patient Temp 42 mmHg (35-46) Arterial Blood pO2 at Patient Temp 82 mmHg (65-108) Arterial Blood HCO3 27 mmol/L (21-28) Arterial Blood Base Excess 2 mmol/L (-3-3) FiO2 90 D-Dimer (Arleen) 2.21 ug/mlFEU (0.00-0.50) Sodium Level 150 mmol/L (136-145) Potassium Level 4.1 mmol/L (3.5-5.1) Chloride Level 113 mmol/L (98-107) Carbon Dioxide Level 27 mmol/L (21-32) Anion Gap 10 (6-14) Blood Urea Nitrogen 31 mg/dL (7-20) Creatinine 0.7 mg/dL (0.6-1.0) Estimated GFR (Cockcroft-Gault) 81.6 Glucose Level 138 mg/dL (70-99) Calcium Level 8.5 mg/dL (8.5-10.1) Medications Active Scripts Medications Dose Route/Sig Max Daily Dose Days Date Category Lisinopril 20 Mg Tablet 1 Tab PO DAILY 02/17/20 Reported Norvasc (Amlodipine Besylate) 5 Mg Tablet 1 Tab PO DAILY 02/17/20 Reported Comments CXR 02/19 improving bilateral infiltrates Impression . IMPRESSION: 1. Acute hypoxic respiratory failure secondary to COVID-19 pneumonia/ARDS/acute lung injury. 2. Abnormal CT chest with diffuse and extensive bilateral infiltrates consistent with COVID-19 pneumonia. Cannot exclude superimposed bacterial pneumonia. No evidence of pulmonary embolism. 3. High D-dimer. Commonly seen in patients with COVID-19 pneumonia. We will continue high dose DVT prophylaxis. 4. No significant reported tobacco history. Plan . RECOMMENDATIONS: Continue current vent support. wean Fi02 80% and PEEP of 7 , Follow CXR/ABG, Continue steroids witht aper Continue empiric ABX: levaquin and zosyn Tube feeding DVT/GI PPX D/W RN and RT Pt. is FULL CODE Critical care time 30 minutes KYM LOPEZ MD Feb 20, 2020 11:35
--- NOTE | 2020-02-20 11:45 | RAD ---
XR ABDOMEN 1V History: Reason: NG placement / Spl. Instructions: / History: Technique: Supine view the abdomen. Comparison: Chest x-ray February 20, 2020. 5:20 AM Findings: Interval advancement enteric tube looped within the gastric fundus with tip projecting adjacent to th e gastroesophageal junction. Several nondilated air-filled loops of small bowel. I lateral pulmonary opacities better evaluated on chest x-ray. Impression: 1. Interval advancement of enteric tube looped within the gastric fundus with tip projecting adjacen t to the gastroesophageal junction. Correlate for desired positioning. 2. Nonspecific bowel gas pattern. Electronically signed by: Brian Rodriguez DO (02/20/2020 11:43 AM) [id number]
[2020-02-20] MEDS: MIDAZOLAM 100mg/100ml NS BAG 100 ML IV PRN (14:43)
--- NOTE | 2020-02-20 17:20 | NUR ---
GREGOR following for today. Pt on a ventilator, IV Zosyn, tube feed. Pt at high risk for readmission. Not ready for discharge. tanya Petersen to follow.
[2020-02-21] VITALS (24 sets, daily range): BP systolic 96–142; BP diastolic 52–88
[2020-02-21] MEDS: MIDAZOLAM 100mg/100ml NS BAG 100 ML IV PRN ×3 (00:56→22:21)
[2020-02-21] MEDS: PIPERACILLIN/TAZOBACTAM 3.375 GM in IV NORMAL SALINE 50ML 50 ML IV SCH ×4 (06:00→23:30)
--- NOTE | 2020-02-21 07:16 | PN ---
DATE: 02/21/2020 SUBJECTIVE: The patient continues to be sedated, intubated and mechanically ventilated. She is maintaining her oxygen saturation at 100% on FiO2 of 80%. Nursing staff did not voice any concerns that she had an uneventful night. OBJECTIVE: GENERAL: On examining her, she looked pale, but no jaundice, cyanosis or thyromegaly. No jugular venous distention. No limb edema. VITAL SIGNS: Her heart rate was 49, blood pressure was 105/62, temperature 97.8, respiratory rate 20, and oxygen saturation was 100% on FiO2 of 80%. The patient was seen during COVID-19 pandemic. Visual examination performed. LABORATORY DATA: On her lab work, her most recent white cell count was 11,400, hemoglobin 11, hematocrit 34, MCV 88 and platelet count 267,000. Her chemistry showed her serum sodium was high at 150, potassium 4.1, chloride 113, bicarbonate 27, anion gap of 10, BUN 31, creatinine 0.7, estimated GFR was 81 mL per minute. Her glucose 138, calcium was 8.5. ASSESSMENT: 1. COVID-19 pneumonia. 2. Acute hypoxic respiratory failure. 3. Acute respiratory distress syndrome. 4. Hypertension, however, the patient is borderline hypotensive. I have discontinued her antihypertensive medications. 5. Elevated D-dimer; however, CT scan of the chest was negative for deep vein thrombosis. 6. Severe protein-calorie malnutrition. Serum albumin is only 1.8 g/dL. 7. Hypernatremia. PLAN: To continue with mechanical ventilation and titrate oxygen as tolerated. Continue with steroids in the form of dexamethasone. Continue with IV antibiotics in the form of levofloxacin and Zosyn. Continue GI prophylaxis as well as DVT prophylaxis. I will increase her water flushes as her sodium is high at 150. SEUN SOSA MD DR: GUERLINE/gabriela JOB#: [id number] / [id number]
[2020-02-21 07:54] LABS: BASE EXCESS ABG -1 mmol/L (-3-3); HCO3 ABG 23 mmol/L (21-28); PCO2 ABG 37 mmHg (35-46); PO2 ABG 79 mmHg (65-108); SAT O2 ABG 95 % (92-99)
[2020-02-21 07:56] LABS: FIO2 ABG 80
[2020-02-21] MEDS: guaiFENesin DM 600/30MG 1 TAB TAB.ER.12H PO SCH ×2 (09:00→19:08)
[2020-02-21] MEDS: FAMOTIDINE 20 MG/2 ML VIAL IVP SCH (10:00)
[2020-02-21] MEDS: DEXAMETHASONE SOD PHOS 4 MG/ML VIAL IVP SCH (10:00)
[2020-02-21] MEDS: ENOXAPARIN 40 MG/0.4 ML SYRINGE. SQ SCH ×2 (10:01→20:40)
[2020-02-21 10:21] LABS: ALBUMIN 1.8 g/dL (3.4-5.0); ALBUMIN/GLOBULIN RATIO 0.4 (1.0-1.7); CALCIUM 8.4 mg/dL (8.5-10.1); CREATININE 0.8 mg/dL (0.6-1.0); GFR 69.9; POTASSIUM 3.7 mmol/L (3.5-5.1); TOTAL BILIRUBIN 0.3 mg/dL (0.2-1.0); TOTAL PROTEIN 6.6 g/dL (6.4-8.2)
[2020-02-21 10:26] LABS: BASO % 0 % (0-3); EOS # 0.1 x10^3/uL (0.0-0.7); EOS % 1 % (0-3); HEMATOCRIT 35.4 % (36.0-47.0); HEMOGLOBIN 11.5 g/dL (12.0-15.5); LYMPH # 0.8 x10^3/uL (1.0-4.8); LYMPH % 8 % (24-48); MEAN CORPUSCULAR HEMOGLOBIN 29 pg (25-35); MEAN CORPUSCULAR HGB CONC 32 g/dL (31-37); MEAN CORPUSCULAR VOLUME 89 fL (79-100); MONO # 0.6 x10^3/uL (0.0-1.1); MONO % 7 % (0-9); NEUT % 84 % (31-73); PLATELET COUNT 262 x10^3/uL (140-400); RED BLOOD COUNT 3.98 x10^6/uL (3.50-5.40); WHITE BLOOD COUNT 9.5 x10^3/uL (4.0-11.0)
--- NOTE | 2020-02-21 14:01 | PDOC ---
PULMONARY PROGRESS NOTES DATE: 02/21/20 TIME: 13:59 Subjective Pt. is on vent support 80% and PEEP of 7 afebrile overnight no concerns from nursing Vitals Vital Signs Date Time Temp Pulse Resp B/P (MAP) Pulse Ox O2 Delivery O2 Flow Rate FiO2 02/21/20 13:05 50 16 114/66 (82) 98 Ventilator 02/21/20 12:27 97.4 97.4 Comments Pt. seen during pandemic visual exam preformed, RRR VENT no distress or accessory muscle use no obvious edema or rash Labs Laboratory Tests Test 02/20/20 07:45 02/20/20 10:30 02/20/20 12:32 02/21/20 07:30 O2 Saturation 96 % (92-99) 95 % (92-99) Arterial Blood pH 7.42 (7.35-7.45) 7.41 (7.35-7.45) Arterial Blood pCO2 at Patient Temp 42 mmHg (35-46) 37 mmHg (35-46) Arterial Blood pO2 at Patient Temp 82 mmHg (65-108) 79 mmHg (65-108) Arterial Blood HCO3 27 mmol/L (21-28) 23 mmol/L (21-28) Arterial Blood Base Excess 2 mmol/L (-3-3) -1 mmol/L (-3-3) FiO2 90 80 D-Dimer (Arleen) 2.21 ug/mlFEU (0.00-0.50) Sodium Level 150 mmol/L (136-145) Potassium Level 4.1 mmol/L (3.5-5.1) Chloride Level 113 mmol/L (98-107) Carbon Dioxide Level 27 mmol/L (21-32) Anion Gap 10 (6-14) Blood Urea Nitrogen 31 mg/dL (7-20) Creatinine 0.7 mg/dL (0.6-1.0) Estimated GFR (Cockcroft-Gault) 81.6 Glucose Level 138 mg/dL (70-99) Calcium Level 8.5 mg/dL (8.5-10.1) Glucose (Fingerstick) 273 mg/dL (70-99) Test 02/21/20 09:00 White Blood Count 9.5 x10^3/uL (4.0-11.0) Red Blood Count 3.98 x10^6/uL (3.50-5.40) Hemoglobin 11.5 g/dL (12.0-15.5) Hematocrit 35.4 % (36.0-47.0) Mean Corpuscular Volume 89 fL (79-100) Mean Corpuscular Hemoglobin 29 pg (25-35) Mean Corpuscular Hemoglobin Concent 32 g/dL (31-37) Red Cell Distribution Width 14.0 % (11.5-14.5) Platelet Count 262 x10^3/uL (140-400) Neutrophils (%) (Auto) 84 % (31-73) Lymphocytes (%) (Auto) 8 % (24-48) Monocytes (%) (Auto) 7 % (0-9) Eosinophils (%) (Auto) 1 % (0-3) Basophils (%) (Auto) 0 % (0-3) Neutrophils # (Auto) 8.0 x10^3/uL (1.8-7.7) Lymphocytes # (Auto) 0.8 x10^3/uL (1.0-4.8) Monocytes # (Auto) 0.6 x10^3/uL (0.0-1.1) Eosinophils # (Auto) 0.1 x10^3/uL (0.0-0.7) Basophils # (Auto) 0.0 x10^3/uL (0.0-0.2) Sodium Level 152 mmol/L (136-145) Potassium Level 3.7 mmol/L (3.5-5.1) Chloride Level 116 mmol/L (98-107) Carbon Dioxide Level 27 mmol/L (21-32) Anion Gap 9 (6-14) Blood Urea Nitrogen 33 mg/dL (7-20) Creatinine 0.8 mg/dL (0.6-1.0) Estimated GFR (Cockcroft-Gault) 69.9 BUN/Creatinine Ratio 41 (6-20) Glucose Level 162 mg/dL (70-99) Calcium Level 8.4 mg/dL (8.5-10.1) Total Bilirubin 0.3 mg/dL (0.2-1.0) Aspartate Amino Transf (AST/SGOT) 25 U/L (15-37) Alanine Aminotransferase (ALT/SGPT) 25 U/L (14-59) Alkaline Phosphatase 53 U/L (46-116) Total Protein 6.6 g/dL (6.4-8.2) Albumin 1.8 g/dL (3.4-5.0) Albumin/Globulin Ratio 0.4 (1.0-1.7) Laboratory Tests Test 02/21/20 07:30 02/21/20 09:00 O2 Saturation 95 % (92-99) Arterial Blood pH 7.41 (7.35-7.45) Arterial Blood pCO2 at Patient Temp 37 mmHg (35-46) Arterial Blood pO2 at Patient Temp 79 mmHg (65-108) Arterial Blood HCO3 23 mmol/L (21-28) Arterial Blood Base Excess -1 mmol/L (-3-3) FiO2 80 White Blood Count 9.5 x10^3/uL (4.0-11.0) Red Blood Count 3.98 x10^6/uL (3.50-5.40) Hemoglobin 11.5 g/dL (12.0-15.5) Hematocrit 35.4 % (36.0-47.0) Mean Corpuscular Volume 89 fL (79-100) Mean Corpuscular Hemoglobin 29 pg (25-35) Mean Corpuscular Hemoglobin Concent 32 g/dL (31-37) Red Cell Distribution Width 14.0 % (11.5-14.5) Platelet Count 262 x10^3/uL (140-400) Neutrophils (%) (Auto) 84 % (31-73) Lymphocytes (%) (Auto) 8 % (24-48) Monocytes (%) (Auto) 7 % (0-9) Eosinophils (%) (Auto) 1 % (0-3) Basophils (%) (Auto) 0 % (0-3) Neutrophils # (Auto) 8.0 x10^3/uL (1.8-7.7) Lymphocytes # (Auto) 0.8 x10^3/uL (1.0-4.8) Monocytes # (Auto) 0.6 x10^3/uL (0.0-1.1) Eosinophils # (Auto) 0.1 x10^3/uL (0.0-0.7) Basophils # (Auto) 0.0 x10^3/uL (0.0-0.2) Sodium Level 152 mmol/L (136-145) Potassium Level 3.7 mmol/L (3.5-5.1) Chloride Level 116 mmol/L (98-107) Carbon Dioxide Level 27 mmol/L (21-32) Anion Gap 9 (6-14) Blood Urea Nitrogen 33 mg/dL (7-20) Creatinine 0.8 mg/dL (0.6-1.0) Estimated GFR (Cockcroft-Gault) 69.9 BUN/Creatinine Ratio 41 (6-20) Glucose Level 162 mg/dL (70-99) Calcium Level 8.4 mg/dL (8.5-10.1) Total Bilirubin 0.3 mg/dL (0.2-1.0) Aspartate Amino Transf (AST/SGOT) 25 U/L (15-37) Alanine Aminotransferase (ALT/SGPT) 25 U/L (14-59) Alkaline Phosphatase 53 U/L (46-116) Total Protein 6.6 g/dL (6.4-8.2) Albumin 1.8 g/dL (3.4-5.0) Albumin/Globulin Ratio 0.4 (1.0-1.7) Medications Active Scripts Medications Dose Route/Sig Max Daily Dose Days Date Category Lisinopril 20 Mg Tablet 1 Tab PO DAILY 02/17/20 Reported Norvasc (Amlodipine Besylate) 5 Mg Tablet 1 Tab PO DAILY 02/17/20 Reported Comments CXR 02/19 improving bilateral infiltrates Impression . IMPRESSION: 1. Acute hypoxic respiratory failure secondary to COVID-19 pneumonia/ARDS/acute lung injury. 2. Abnormal CT chest with diffuse and extensive bilateral infiltrates consistent with COVID-19 pneumonia. Cannot exclude superimposed bacterial pneumonia. No evidence of pulmonary embolism. 3. High D-dimer. Commonly seen in patients with COVID-19 pneumonia. We will continue high dose DVT prophylaxis. 4. No significant reported tobacco history. Plan . RECOMMENDATIONS: Continue current vent support. wean Fi02 80% and PEEP of 7 , will reduce fi02 to 75% Follow CXR/ABG, Continue steroids with taper Continue empiric ABX: levaquin and zosyn Tube feeding per radio producer, increase h20 flush 2/2 Hypernatermia DVT/GI PPX D/W RN and RT Pt. is FULL CODE Critical care time [id number] BERKLEY BRANCH MD Feb 21, 2020 14:01
--- NOTE | 2020-02-21 14:46 | NUR ---
SS following for discharge planning. SS reviewed pt chart and discussed with pt RN. Pt is from home with spouse and is currently on the vent at 90%. COVID19 positive. Pt on IV Levaquin and IV Zosyn. Not stable. SS will continue to follow for discharge planning.
[2020-02-22] VITALS (23 sets, daily range): BP systolic 97–161; BP diastolic 53–91
--- NOTE | 2020-02-22 04:27 | RAD ---
XR CHEST 1V 02/22/2020 4:13 AM INDICATION: Respiratory failure COMPARISON: 02/12/2020 TECHNIQUE: Portable frontal view of the chest is provided. FINDINGS: The cardiomediastinal silhouette is similar in appearance. Endotracheal tube is in similar position. Interval advancement of the nasogastric tube which is in appropriate position. There is subcutaneous emphysema along the neck base. Pneumomediastinum appears new from the prior exa mination. Perihilar mixed interstitial and alveolar airspace disease appears relatively similar to pr ior examination. No suspicious osseous abnormality. IMPRESSION: There is repositioning the nasogastric tube which is in appropriate position. New subcutaneous emphysema along the neck base with pneumomediastinum. FOR INTERNAL CODING PURPOSES Critical result: Findings discussed with Tara, the patient's nurse, at 02/22/2020 4:24 AM. RESULT CODE: (C) Electronically signed by: Candace Bailey MD (02/22/2020 4:25 AM) APOLINAR
[2020-02-22] MEDS: PIPERACILLIN/TAZOBACTAM 3.375 GM in IV NORMAL SALINE 50ML 50 ML IV SCH ×4 (05:51→23:56)
[2020-02-22 07:26] LABS: HEMATOCRIT 34.1 % (36.0-47.0); RED BLOOD COUNT 3.84 x10^6/uL (3.50-5.40); RED CELL DISTRIBUTION WIDTH 14.2 % (11.5-14.5); WHITE BLOOD COUNT 11.1 x10^3/uL (4.0-11.0)
[2020-02-22 07:48] LABS: ALBUMIN 1.7 g/dL (3.4-5.0); ALBUMIN/GLOBULIN RATIO 0.4 (1.0-1.7); CALCIUM 7.8 mg/dL (8.5-10.1); CREATININE 0.7 mg/dL (0.6-1.0); GFR 81.6; POTASSIUM 3.6 mmol/L (3.5-5.1); TOTAL BILIRUBIN 0.4 mg/dL (0.2-1.0); TOTAL PROTEIN 6.2 g/dL (6.4-8.2)
--- NOTE | 2020-02-22 08:10 | PN ---
DATE: 02/22/2020 SUBJECTIVE: The patient is resting, slightly propped up in bed, in no apparent distress. She continued to be sedated, intubated and mechanically ventilated. She is maintaining her oxygen saturation at 96% on FiO2 of 75%; however, her chest x-ray done this morning showed that she has new subcutaneous emphysema along the neck base with a pneumomediastinum and her nasogastric tube was properly positioned. PHYSICAL EXAMINATION: GENERAL: On examining her, she looked pale, but no jaundice, cyanosis or thyromegaly. No jugular venous distention. No limb edema. VITAL SIGNS: Her heart rate was 66, blood pressure was 123/75, temperature was 98.8, respiratory rate was 21 and oxygen saturation was 96% on FiO2 of 75%. HEAD, EYES, EARS, NOSE AND THROAT: Showed normocephalic, atraumatic. NECK: Supple. HEART: Normal first and second heart sounds. No gallop or murmur. CHEST: Clear to auscultation. No crepitation or rhonchi. ABDOMEN: Distended, soft, nontender. NEUROLOGIC: She is heavily sedated. Her intake over the last 24 hours was 1200, output was 755. LABORATORY DATA: Today's labs are still pending at the time of this dictation. As of yesterday, her white cell count was 9500, hemoglobin 11.5, hematocrit 35, MCV 89 and platelet count 262,000 with normal manual differential. Her chemistry showed that her sodium continued to be high at 152, potassium 3.7, chloride 116, bicarbonate 27, anion gap of 9, BUN 33, creatinine 0.8, estimated GFR was 70 mL per minute. Her glucose 162, calcium was 8.4. Total bilirubin, AST, ALT, alkaline phosphatase were normal. Total protein 6.6, albumin was 1.8. ASSESSMENT: 1. COVID-19 pneumonia. 2. Acute hypoxic respiratory failure. 3. Acute respiratory distress syndrome. 4. Hypertension, however, the patient is borderline hypotensive. I have discontinued her antihypertensive medication. 5. Elevated D-dimer; however, CT scan of the chest was negative for deep vein thrombosis. 6. Severe protein-calorie malnutrition, serum albumin is only 1.8 g/dL. 7. Hypernatremia with a serum sodium that was actually higher yesterday at 152. 8. New onset subcutaneous emphysema and pneumomediastinum. PLAN: 1. Continue mechanical ventilation and titrate oxygen as tolerated. 2. Continue with steroids in the form of dexamethasone. 3. Continue with IV antibiotic in the form of levofloxacin and Zosyn. 4. Continue with GI as well as DVT prophylaxis. Her water flushes increased to 300 mL every 4 hours. Today's labs are still pending at the time of this dictation. SEUN SOSA MD DR: GUERLINE/gabriela JOB#: [id number] / [id number]
[2020-02-22 08:30] LABS: BASE EXCESS ABG 2 mmol/L (-3-3); HCO3 ABG 27 mmol/L (21-28); PCO2 ABG 41 mmHg (35-46); PO2 ABG 73 mmHg (65-108); SAT O2 ABG 94 % (92-99)
[2020-02-22 08:34] LABS: FIO2 ABG 70/VENT
[2020-02-22] MEDS: FAMOTIDINE 20 MG/2 ML VIAL IVP SCH (09:02)
[2020-02-22] MEDS: ENOXAPARIN 40 MG/0.4 ML SYRINGE. SQ SCH ×2 (09:02→21:13)
[2020-02-22] MEDS: guaiFENesin DM 600/30MG 1 TAB TAB.ER.12H PO SCH ×2 (09:02→21:00)
[2020-02-22] MEDS: DEXAMETHASONE SOD PHOS 4 MG/ML VIAL IVP SCH (09:06)
--- NOTE | 2020-02-22 11:01 | PDOC ---
PULMONARY PROGRESS NOTES DATE: 02/22/20 TIME: 10:59 Subjective Pt. is on vent support 70% and PEEP of 7 Low-grade fever overnight no concerns from nursing Vitals Vital Signs Date Time Temp Pulse Resp B/P (MAP) Pulse Ox O2 Delivery O2 Flow Rate FiO2 02/22/20 10:00 65 17 125/61 (82) 99 Ventilator 02/22/20 08:00 99.7 99.7 Comments Pt. seen during ID pandemic visual exam preformed, RRR VENT no distress or accessory muscle use no obvious edema or rash Labs Laboratory Tests Test 02/20/20 12:32 02/21/20 07:30 02/21/20 09:00 02/22/20 07:02 Glucose (Fingerstick) 273 mg/dL (70-99) O2 Saturation 95 % (92-99) Arterial Blood pH 7.41 (7.35-7.45) Arterial Blood pCO2 at Patient Temp 37 mmHg (35-46) Arterial Blood pO2 at Patient Temp 79 mmHg (65-108) Arterial Blood HCO3 23 mmol/L (21-28) Arterial Blood Base Excess -1 mmol/L (-3-3) FiO2 80 White Blood Count 9.5 x10^3/uL (4.0-11.0) 11.1 x10^3/uL (4.0-11.0) Red Blood Count 3.98 x10^6/uL (3.50-5.40) 3.84 x10^6/uL (3.50-5.40) Hemoglobin 11.5 g/dL (12.0-15.5) 11.0 g/dL (12.0-15.5) Hematocrit 35.4 % (36.0-47.0) 34.1 % (36.0-47.0) Mean Corpuscular Volume 89 fL (79-100) 89 fL (79-100) Mean Corpuscular Hemoglobin 29 pg (25-35) 29 pg (25-35) Mean Corpuscular Hemoglobin Concent 32 g/dL (31-37) 32 g/dL (31-37) Red Cell Distribution Width 14.0 % (11.5-14.5) 14.2 % (11.5-14.5) Platelet Count 262 x10^3/uL (140-400) 246 x10^3/uL (140-400) Neutrophils (%) (Auto) 84 % (31-73) Lymphocytes (%) (Auto) 8 % (24-48) Monocytes (%) (Auto) 7 % (0-9) Eosinophils (%) (Auto) 1 % (0-3) Basophils (%) (Auto) 0 % (0-3) Neutrophils # (Auto) 8.0 x10^3/uL (1.8-7.7) Lymphocytes # (Auto) 0.8 x10^3/uL (1.0-4.8) Monocytes # (Auto) 0.6 x10^3/uL (0.0-1.1) Eosinophils # (Auto) 0.1 x10^3/uL (0.0-0.7) Basophils # (Auto) 0.0 x10^3/uL (0.0-0.2) Sodium Level 152 mmol/L (136-145) 149 mmol/L (136-145) Potassium Level 3.7 mmol/L (3.5-5.1) 3.6 mmol/L (3.5-5.1) Chloride Level 116 mmol/L (98-107) 113 mmol/L (98-107) Carbon Dioxide Level 27 mmol/L (21-32) 29 mmol/L (21-32) Anion Gap 9 (6-14) 7 (6-14) Blood Urea Nitrogen 33 mg/dL (7-20) 24 mg/dL (7-20) Creatinine 0.8 mg/dL (0.6-1.0) 0.7 mg/dL (0.6-1.0) Estimated GFR (Cockcroft-Gault) 69.9 81.6 BUN/Creatinine Ratio 41 (6-20) 34 (6-20) Glucose Level 162 mg/dL (70-99) 151 mg/dL (70-99) Calcium Level 8.4 mg/dL (8.5-10.1) 7.8 mg/dL (8.5-10.1) Total Bilirubin 0.3 mg/dL (0.2-1.0) 0.4 mg/dL (0.2-1.0) Aspartate Amino Transf (AST/SGOT) 25 U/L (15-37) 35 U/L (15-37) Alanine Aminotransferase (ALT/SGPT) 25 U/L (14-59) 30 U/L (14-59) Alkaline Phosphatase 53 U/L (46-116) 52 U/L (46-116) Total Protein 6.6 g/dL (6.4-8.2) 6.2 g/dL (6.4-8.2) Albumin 1.8 g/dL (3.4-5.0) 1.7 g/dL (3.4-5.0) Albumin/Globulin Ratio 0.4 (1.0-1.7) 0.4 (1.0-1.7) Test 02/22/20 08:00 O2 Saturation 94 % (92-99) Arterial Blood pH 7.43 (7.35-7.45) Arterial Blood pCO2 at Patient Temp 41 mmHg (35-46) Arterial Blood pO2 at Patient Temp 73 mmHg (65-108) Arterial Blood HCO3 27 mmol/L (21-28) Arterial Blood Base Excess 2 mmol/L (-3-3) FiO2 70/vent Laboratory Tests Test 02/22/20 07:02 02/22/20 08:00 White Blood Count 11.1 x10^3/uL (4.0-11.0) Red Blood Count 3.84 x10^6/uL (3.50-5.40) Hemoglobin 11.0 g/dL (12.0-15.5) Hematocrit 34.1 % (36.0-47.0) Mean Corpuscular Volume 89 fL (79-100) Mean Corpuscular Hemoglobin 29 pg (25-35) Mean Corpuscular Hemoglobin Concent 32 g/dL (31-37) Red Cell Distribution Width 14.2 % (11.5-14.5) Platelet Count 246 x10^3/uL (140-400) Sodium Level 149 mmol/L (136-145) Potassium Level 3.6 mmol/L (3.5-5.1) Chloride Level 113 mmol/L (98-107) Carbon Dioxide Level 29 mmol/L (21-32) Anion Gap 7 (6-14) Blood Urea Nitrogen 24 mg/dL (7-20) Creatinine 0.7 mg/dL (0.6-1.0) Estimated GFR (Cockcroft-Gault) 81.6 BUN/Creatinine Ratio 34 (6-20) Glucose Level 151 mg/dL (70-99) Calcium Level 7.8 mg/dL (8.5-10.1) Total Bilirubin 0.4 mg/dL (0.2-1.0) Aspartate Amino Transf (AST/SGOT) 35 U/L (15-37) Alanine Aminotransferase (ALT/SGPT) 30 U/L (14-59) Alkaline Phosphatase 52 U/L (46-116) Total Protein 6.2 g/dL (6.4-8.2) Albumin 1.7 g/dL (3.4-5.0) Albumin/Globulin Ratio 0.4 (1.0-1.7) O2 Saturation 94 % (92-99) Arterial Blood pH 7.43 (7.35-7.45) Arterial Blood pCO2 at Patient Temp 41 mmHg (35-46) Arterial Blood pO2 at Patient Temp 73 mmHg (65-108) Arterial Blood HCO3 27 mmol/L (21-28) Arterial Blood Base Excess 2 mmol/L (-3-3) FiO2 70/vent Medications Active Scripts Medications Dose Route/Sig Max Daily Dose Days Date Category Lisinopril 20 Mg Tablet 1 Tab PO DAILY 02/17/20 Reported Norvasc (Amlodipine Besylate) 5 Mg Tablet 1 Tab PO DAILY 02/17/20 Reported Comments CXR 02/21 IMPRESSION: There is repositioning the nasogastric tube which is in appropriate position. New subcutaneous emphysema along the neck base with pneumomediastinum. Impression . IMPRESSION: 1. Acute hypoxic respiratory failure secondary to COVID-19 pneumonia/ARDS/acute lung injury. 2. Abnormal CT chest with diffuse and extensive bilateral infiltrates consistent with COVID-19 pneumonia. Cannot exclude superimposed bacterial pneumonia. No evidence of pulmonary embolism. 3. High D-dimer. Commonly seen in patients with COVID-19 pneumonia. We will continue high dose DVT prophylaxis. 4. No significant reported tobacco history. Plan . RECOMMENDATIONS: Continue current vent support. wean Fi02 70% and PEEP of 7 Follow CXR/ABG, chest x-ray shows pneumomediastinum with some subcu air, will continue to monitor, will reduce FiO2 to 65% today Continue steroids with taper Continue empiric ABX: levaquin and zosyn Tube feeding per detention sergeant, continue water flushes DVT/GI PPX D/W RN and RT Pt. is FULL CODE Critical care time [id number] BERKLEY BRANCH MD Feb 22, 2020 11:01
--- NOTE | 2020-02-22 16:18 | NUR ---
SS following up with discharge planning. SS reviewed pt chart and discussed with pt RN. Pt is currently on the vent at 70%. COVID19 positive. Pt on IV Levaquin and IV Zosyn. Not stable. SS will continue to follow for discharge planning.
[2020-02-22] MEDS: MIDAZOLAM 100mg/100ml NS BAG 100 ML IV PRN (18:44)
[2020-02-23] VITALS (24 sets, daily range): BP systolic 97–144; BP diastolic 50–113
[2020-02-23] MEDS: PIPERACILLIN/TAZOBACTAM 3.375 GM in IV NORMAL SALINE 50ML 50 ML IV SCH ×3 (05:42→17:17)
--- NOTE | 2020-02-23 07:20 | NUR ---
Dr. Lopez at bedside and place chest tube to left chest. Pt sedated with Versed 5mg bolus and Vecuronium 6mg IV bolus. CT placed to -20mmhg suction. Received 180cc of serosanguineous fluid. CXR obtained. Addendum: 02/23/20 at 0730 by MICHELLE SAAVEDRA RN wrong patient
[2020-02-23] MEDS: MIDAZOLAM 100mg/100ml NS BAG 100 ML IV PRN ×2 (07:27→17:18)
--- NOTE | 2020-02-23 07:41 | PN ---
DATE: 02/23/2020 SUBJECTIVE: The patient continued to be sedated with fentanyl and Versed, intubated and mechanically ventilated. She is maintaining her oxygen saturation at 95% on FiO2 of 70%. Nursing staff did not voice any concerns that she has an uneventful night. PHYSICAL EXAMINATION: GENERAL: On examining her, she looked pale. No jaundice, cyanosis or thyromegaly. No jugular venous distention. No lower limb edema. VITAL SIGNS: Her heart rate was 56, blood pressure was 109/59, temperature was 97.8, respiratory rate was 18 and oxygen saturation was 95%. HEENT: Showed normocephalic, atraumatic. She has orotracheal and orogastric tube. NECK: Supple. HEART: Normal first and second heart sounds. No gallop or murmur. CHEST: Clear to auscultation. No crepitation or rhonchi. ABDOMEN: Distended, soft, nontender. No guarding or rigidity. No organomegaly. All hernial orifice intact. Bowel sounds normal. NEUROLOGIC: She is heavily sedated. Her intake over the last 24 hours was 1840, output was 1100. LABORATORY DATA: As of yesterday, her white cell count was 11,000, hemoglobin 11, hematocrit 34, MCV 89 and platelet count 246,000. Her chemistry showed her serum sodium is slightly down from 152 to 149, potassium 3.6, chloride 113, bicarbonate 29, anion gap of 7, BUN 24, creatinine was 0.7, estimated GFR was 81 mL per minute. Her glucose was 151, calcium was 7.8. ASSESSMENT: 1. COVID-19 pneumonia. 2. Acute hypoxic respiratory failure. 3. Acute respiratory distress syndrome. 4. Hypertension; however, the patient is borderline hypotensive. Her antihypertensive medications were discontinued. 5. Elevated D-dimer; however, CT angio of the chest was negative for deep vein thrombosis. 6. Severe protein-calorie malnutrition. Serum albumin is only 1.7 g/dL. 7. Hypernatremia, slowly improving. Her serum sodium is down to 149. Today's labs are still pending at the time of this dictation. 8. She has new onset subcutaneous emphysema and pneumomediastinum. PLAN: 1. To continue mechanical ventilation and titrate oxygen as tolerated. Continue with steroids in the form of dexamethasone. 2. Continue with IV antibiotics, levofloxacin and Zosyn. 3. Continue GI and DVT prophylaxis. 4. For hypernatremia, her water flushes were increased to 300 mL every 4 hours and today's labs are still pending at the time of this dictation. SEUN SOSA MD DR: GUERLINE/gabriela JOB#: [id number] / [id number]
[2020-02-23 07:46] LABS: HEMATOCRIT 34.3 % (36.0-47.0); RED BLOOD COUNT 3.86 x10^6/uL (3.50-5.40); RED CELL DISTRIBUTION WIDTH 13.7 % (11.5-14.5)
[2020-02-23 08:11] LABS: ALBUMIN 1.5 g/dL (3.4-5.0); ALBUMIN/GLOBULIN RATIO 0.4 (1.0-1.7); CALCIUM 7.6 mg/dL (8.5-10.1); CREATININE 0.4 mg/dL (0.6-1.0); GFR 155.6; POTASSIUM 3.5 mmol/L (3.5-5.1); TOTAL BILIRUBIN 0.5 mg/dL (0.2-1.0); TOTAL PROTEIN 5.6 g/dL (6.4-8.2)
[2020-02-23 08:28] LABS: BASE EXCESS ABG 2 mmol/L (-3-3); HCO3 ABG 26 mmol/L (21-28); PCO2 ABG 40 mmHg (35-46); PO2 ABG 60 mmHg (65-108); SAT O2 ABG 91 % (92-99)
[2020-02-23] MEDS: DEXAMETHASONE SOD PHOS 4 MG/ML VIAL IVP SCH (08:35)
[2020-02-23] MEDS: FAMOTIDINE 20 MG/2 ML VIAL IVP SCH (08:35)
[2020-02-23] MEDS: guaiFENesin DM 600/30MG 1 TAB TAB.ER.12H PO SCH ×2 (08:35→21:00)
[2020-02-23] MEDS: ENOXAPARIN 40 MG/0.4 ML SYRINGE. SQ SCH ×2 (08:35→21:06)
[2020-02-23 08:43] LABS: FIO2 ABG 70/VENT
--- NOTE | 2020-02-23 10:21 | PDOC ---
PULMONARY PROGRESS NOTES DATE: 02/23/20 TIME: 10:14 Subjective Pt. is on vent support 70% and PEEP of 5 no concerns from nursing Vitals Vital Signs Date Time Temp Pulse Resp B/P (MAP) Pulse Ox O2 Delivery O2 Flow Rate FiO2 02/23/20 09:00 61 20 109/60 (76) 96 Ventilator 02/23/20 08:00 97.3 97.3 Comments Pt. seen during ID pandemic visual exam preformed, RRR VENT no distress or accessory muscle use no obvious edema or rash Labs Laboratory Tests Test 02/22/20 07:02 02/22/20 08:00 02/23/20 07:22 02/23/20 08:00 White Blood Count 11.1 x10^3/uL (4.0-11.0) 12.0 x10^3/uL (4.0-11.0) Red Blood Count 3.84 x10^6/uL (3.50-5.40) 3.86 x10^6/uL (3.50-5.40) Hemoglobin 11.0 g/dL (12.0-15.5) 11.0 g/dL (12.0-15.5) Hematocrit 34.1 % (36.0-47.0) 34.3 % (36.0-47.0) Mean Corpuscular Volume 89 fL (79-100) 89 fL (79-100) Mean Corpuscular Hemoglobin 29 pg (25-35) 29 pg (25-35) Mean Corpuscular Hemoglobin Concent 32 g/dL (31-37) 32 g/dL (31-37) Red Cell Distribution Width 14.2 % (11.5-14.5) 13.7 % (11.5-14.5) Platelet Count 246 x10^3/uL (140-400) 229 x10^3/uL (140-400) Sodium Level 149 mmol/L (136-145) 144 mmol/L (136-145) Potassium Level 3.6 mmol/L (3.5-5.1) 3.5 mmol/L (3.5-5.1) Chloride Level 113 mmol/L (98-107) 109 mmol/L (98-107) Carbon Dioxide Level 29 mmol/L (21-32) 29 mmol/L (21-32) Anion Gap 7 (6-14) 6 (6-14) Blood Urea Nitrogen 24 mg/dL (7-20) 19 mg/dL (7-20) Creatinine 0.7 mg/dL (0.6-1.0) 0.4 mg/dL (0.6-1.0) Estimated GFR (Cockcroft-Gault) 81.6 155.6 BUN/Creatinine Ratio 34 (6-20) 48 (6-20) Glucose Level 151 mg/dL (70-99) 152 mg/dL (70-99) Calcium Level 7.8 mg/dL (8.5-10.1) 7.6 mg/dL (8.5-10.1) Total Bilirubin 0.4 mg/dL (0.2-1.0) 0.5 mg/dL (0.2-1.0) Aspartate Amino Transf (AST/SGOT) 35 U/L (15-37) 27 U/L (15-37) Alanine Aminotransferase (ALT/SGPT) 30 U/L (14-59) 32 U/L (14-59) Alkaline Phosphatase 52 U/L (46-116) 52 U/L (46-116) Total Protein 6.2 g/dL (6.4-8.2) 5.6 g/dL (6.4-8.2) Albumin 1.7 g/dL (3.4-5.0) 1.5 g/dL (3.4-5.0) Albumin/Globulin Ratio 0.4 (1.0-1.7) 0.4 (1.0-1.7) O2 Saturation 94 % (92-99) 91 % (92-99) Arterial Blood pH 7.43 (7.35-7.45) 7.43 (7.35-7.45) Arterial Blood pCO2 at Patient Temp 41 mmHg (35-46) 40 mmHg (35-46) Arterial Blood pO2 at Patient Temp 73 mmHg (65-108) 60 mmHg (65-108) Arterial Blood HCO3 27 mmol/L (21-28) 26 mmol/L (21-28) Arterial Blood Base Excess 2 mmol/L (-3-3) 2 mmol/L (-3-3) FiO2 70/vent 70/vent Laboratory Tests Test 02/23/20 07:22 02/23/20 08:00 White Blood Count 12.0 x10^3/uL (4.0-11.0) Red Blood Count 3.86 x10^6/uL (3.50-5.40) Hemoglobin 11.0 g/dL (12.0-15.5) Hematocrit 34.3 % (36.0-47.0) Mean Corpuscular Volume 89 fL (79-100) Mean Corpuscular Hemoglobin 29 pg (25-35) Mean Corpuscular Hemoglobin Concent 32 g/dL (31-37) Red Cell Distribution Width 13.7 % (11.5-14.5) Platelet Count 229 x10^3/uL (140-400) Sodium Level 144 mmol/L (136-145) Potassium Level 3.5 mmol/L (3.5-5.1) Chloride Level 109 mmol/L (98-107) Carbon Dioxide Level 29 mmol/L (21-32) Anion Gap 6 (6-14) Blood Urea Nitrogen 19 mg/dL (7-20) Creatinine 0.4 mg/dL (0.6-1.0) Estimated GFR (Cockcroft-Gault) 155.6 BUN/Creatinine Ratio 48 (6-20) Glucose Level 152 mg/dL (70-99) Calcium Level 7.6 mg/dL (8.5-10.1) Total Bilirubin 0.5 mg/dL (0.2-1.0) Aspartate Amino Transf (AST/SGOT) 27 U/L (15-37) Alanine Aminotransferase (ALT/SGPT) 32 U/L (14-59) Alkaline Phosphatase 52 U/L (46-116) Total Protein 5.6 g/dL (6.4-8.2) Albumin 1.5 g/dL (3.4-5.0) Albumin/Globulin Ratio 0.4 (1.0-1.7) O2 Saturation 91 % (92-99) Arterial Blood pH 7.43 (7.35-7.45) Arterial Blood pCO2 at Patient Temp 40 mmHg (35-46) Arterial Blood pO2 at Patient Temp 60 mmHg (65-108) Arterial Blood HCO3 26 mmol/L (21-28) Arterial Blood Base Excess 2 mmol/L (-3-3) FiO2 70/vent Medications Active Scripts Medications Dose Route/Sig Max Daily Dose Days Date Category Lisinopril 20 Mg Tablet 1 Tab PO DAILY 02/17/20 Reported Norvasc (Amlodipine Besylate) 5 Mg Tablet 1 Tab PO DAILY 02/17/20 Reported Comments CXR 02/21 IMPRESSION: There is repositioning the nasogastric tube which is in appropriate position. New subcutaneous emphysema along the neck base with pneumomediastinum. Impression . IMPRESSION: 1. Acute hypoxic respiratory failure secondary to COVID-19 pneumonia/ARDS/acute lung injury. 2. Abnormal CT chest with diffuse and extensive bilateral infiltrates consistent with COVID-19 pneumonia. Cannot exclude superimposed bacterial pneumonia. No evidence of pulmonary embolism. 3. High D-dimer. Commonly seen in patients with COVID-19 pneumonia. We will continue high dose DVT prophylaxis. 4. No significant reported tobacco history. Plan . RECOMMENDATIONS: Continue current vent support. wean Fi02 70% and PEEP of 5 Follow CXR/ABG, Will consider surgrical consult for tracheostomy if unable to being weaning trials Continue steroids with taper Continue empiric ABX Tube feeding per certified income tax preparer, continue water flushes DVT/GI PPX D/W RN and RT Pt. is FULL CODE Critical care time [id number] BERKLEY BRANCH MD Feb 23, 2020 10:21
[2020-02-24] VITALS (24 sets, daily range): BP systolic 98–150; BP diastolic 44–76
[2020-02-24] MEDS: PIPERACILLIN/TAZOBACTAM 3.375 GM in IV NORMAL SALINE 50ML 50 ML IV SCH ×4 (00:38→18:04)
[2020-02-24] MEDS: MIDAZOLAM 100mg/100ml NS BAG 100 ML IV PRN ×2 (05:12→15:47)
[2020-02-24 06:20] LABS: CALCIUM 8.1 mg/dL (8.5-10.1); CREATININE 0.6 mg/dL (0.6-1.0); GFR 97.5; POTASSIUM 3.8 mmol/L (3.5-5.1)
--- NOTE | 2020-02-24 06:37 | RAD ---
XR CHEST 1V 02/24/2020 6:29 AM INDICATION: Respiratory failure COMPARISON: 02/22/2020 TECHNIQUE: Portable frontal view of the chest is provided. FINDINGS: The cardiomediastinal silhouette is similar in appearance. Nasogastric tube is in similar position. Increase in small bilateral pleural effusions with increased mixed interstitial and alveolar airspace disease. No pneumothorax. No suspicious osseous abnormality. IMPRESSION: Increased small bilateral pleural effusions with adjacent compressive atelectasis versus infiltrates as well as mixed interstitial and alveolar airspace disease. Electronically signed by: Candace Bailey MD (02/24/2020 6:34 AM) [facility]INAR
[2020-02-24 08:07] LABS: BASE EXCESS ABG 3 mmol/L (-3-3); HCO3 ABG 28 mmol/L (21-28); PCO2 ABG 44 mmHg (35-46); PO2 ABG 60 mmHg (65-108); SAT O2 ABG 90 % (92-99)
[2020-02-24 08:18] LABS: FIO2 ABG 70/VENT
[2020-02-24] MEDS: ENOXAPARIN 40 MG/0.4 ML SYRINGE. SQ SCH ×2 (08:41→20:21)
[2020-02-24] MEDS: FAMOTIDINE 20 MG/2 ML VIAL IVP SCH (08:41)
[2020-02-24] MEDS: DEXAMETHASONE SOD PHOS 4 MG/ML VIAL IVP SCH (08:41)
[2020-02-24] MEDS: guaiFENesin DM 600/30MG 1 TAB TAB.ER.12H PO SCH ×2 (09:00→20:21)
--- NOTE | 2020-02-24 10:34 | PN ---
DATE: 02/24/2020 SUBJECTIVE: The patient is resting, slightly propped up in bed, in no apparent distress. She is sedated, intubated, mechanically ventilated. She is maintaining her oxygen saturation at 100% on FiO2 of 70%. The nursing staff did not voice any concerns that she has uneventful night. OBJECTIVE: GENERAL: On examining her, she was pale, but no jaundice, cyanosis or thyromegaly. No jugular venous distention. No lower limb edema. VITAL SIGNS: Her heart rate was 61, blood pressure was 103/54, temperature was 98.7, respiratory rate was 21 and oxygen saturation was 93% on FiO2 of 70% when she lies on her right side. HEAD, EYES, EARS, NOSE, AND THROAT: Showed normocephalic, atraumatic. NECK: Supple. HEART: Normal first and second heart sounds. No gallop, rub or murmur. CHEST: Clear to auscultation. No crepitation or rhonchi. ABDOMEN: Distended, soft, nontender. NEUROLOGIC: She is heavily sedated. Her intake over the last 24 hours was 3430, output was 1165. LABORATORY DATA: Her lab work this morning showed white cell count of 12,000; hemoglobin 11; hematocrit 34; MCV 89 and platelet count of 229,000. Her chemistry showed a serum sodium 139, potassium 3.8, chloride 105, bicarbonate 30, anion gap of 4, BUN 19, creatinine 0.6, estimated GFR was 97, glucose 152, calcium was 8.1. Her blood gas this morning showed a pH of 7.42, pCO2 of 44, pO2 of 60, bicarbonate 28, anion gap of 3, estimated oxygen saturation was 90% on FiO2 of 70%. Her chest x-ray showed the cardiomediastinal silhouette similar in appearance, increased in small bilateral pleural effusion with increased mixed interstitial and aveolar airspace disease. No pneumothorax. No suspicious osseous abnormality. ASSESSMENT: 1. COVID-19 pneumonia. 2. Acute hypoxic respiratory failure. 3. Acute respiratory distress syndrome. 4. Hypertension, however, the patient is borderline hypotensive. Her antihypertensive medication was discontinued. 5. Elevated D-dimer; however, CT angio of the chest was negative for pulmonary emboli. 6. Severe protein-calorie malnutrition with serum albumin is only 1.7 g/dL. 7. Hypernatremia, slowly improving. Her most serum sodium as of this morning is down to 139 mEq per liter. 8. She has new-onset subcutaneous emphysema and pneumomediastinum. PLAN: Is to obviously continue with mechanical ventilation and wean as tolerated. Continue with IV antibiotics, levofloxacin and Zosyn. Continue with GI and DVT prophylaxis. For hypernatremia, I have increased her water flushes to 300 mL every 4 hours and her serum sodium has normalized at 139 mEq per liter. SEUN SOSA MD DR: GUERLINE/gabriela JOB#: [id number] / [id number]
--- NOTE | 2020-02-24 11:35 | PDOC ---
PULMONARY PROGRESS NOTES DATE: 02/24/20 TIME: 11:34 Subjective Pt. is on vent support 70% and PEEP of 5 no concerns from nursing Vitals Vital Signs Date Time Temp Pulse Resp B/P (MAP) Pulse Ox O2 Delivery O2 Flow Rate FiO2 02/24/20 11:27 94 Ventilator 02/24/20 10:00 61 21 103/54 (70) 02/24/20 09:00 98.7 98.7 Comments Pt. seen during pandemic visual exam preformed, RRR VENT no distress or accessory muscle use no obvious edema or rash Labs Laboratory Tests Test 02/23/20 07:22 02/23/20 08:00 02/24/20 05:00 02/24/20 07:40 White Blood Count 12.0 x10^3/uL (4.0-11.0) Red Blood Count 3.86 x10^6/uL (3.50-5.40) Hemoglobin 11.0 g/dL (12.0-15.5) Hematocrit 34.3 % (36.0-47.0) Mean Corpuscular Volume 89 fL (79-100) Mean Corpuscular Hemoglobin 29 pg (25-35) Mean Corpuscular Hemoglobin Concent 32 g/dL (31-37) Red Cell Distribution Width 13.7 % (11.5-14.5) Platelet Count 229 x10^3/uL (140-400) Sodium Level 144 mmol/L (136-145) 139 mmol/L (136-145) Potassium Level 3.5 mmol/L (3.5-5.1) 3.8 mmol/L (3.5-5.1) Chloride Level 109 mmol/L (98-107) 105 mmol/L (98-107) Carbon Dioxide Level 29 mmol/L (21-32) 30 mmol/L (21-32) Anion Gap 6 (6-14) 4 (6-14) Blood Urea Nitrogen 19 mg/dL (7-20) 19 mg/dL (7-20) Creatinine 0.4 mg/dL (0.6-1.0) 0.6 mg/dL (0.6-1.0) Estimated GFR (Cockcroft-Gault) 155.6 97.5 BUN/Creatinine Ratio 48 (6-20) Glucose Level 152 mg/dL (70-99) 152 mg/dL (70-99) Calcium Level 7.6 mg/dL (8.5-10.1) 8.1 mg/dL (8.5-10.1) Total Bilirubin 0.5 mg/dL (0.2-1.0) Aspartate Amino Transf (AST/SGOT) 27 U/L (15-37) Alanine Aminotransferase (ALT/SGPT) 32 U/L (14-59) Alkaline Phosphatase 52 U/L (46-116) Total Protein 5.6 g/dL (6.4-8.2) Albumin 1.5 g/dL (3.4-5.0) Albumin/Globulin Ratio 0.4 (1.0-1.7) O2 Saturation 91 % (92-99) 90 % (92-99) Arterial Blood pH 7.43 (7.35-7.45) 7.42 (7.35-7.45) Arterial Blood pCO2 at Patient Temp 40 mmHg (35-46) 44 mmHg (35-46) Arterial Blood pO2 at Patient Temp 60 mmHg (65-108) 60 mmHg (65-108) Arterial Blood HCO3 26 mmol/L (21-28) 28 mmol/L (21-28) Arterial Blood Base Excess 2 mmol/L (-3-3) 3 mmol/L (-3-3) FiO2 70/vent 70/vent Laboratory Tests Test 02/24/20 05:00 02/24/20 07:40 Sodium Level 139 mmol/L (136-145) Potassium Level 3.8 mmol/L (3.5-5.1) Chloride Level 105 mmol/L (98-107) Carbon Dioxide Level 30 mmol/L (21-32) Anion Gap 4 (6-14) Blood Urea Nitrogen 19 mg/dL (7-20) Creatinine 0.6 mg/dL (0.6-1.0) Estimated GFR (Cockcroft-Gault) 97.5 Glucose Level 152 mg/dL (70-99) Calcium Level 8.1 mg/dL (8.5-10.1) O2 Saturation 90 % (92-99) Arterial Blood pH 7.42 (7.35-7.45) Arterial Blood pCO2 at Patient Temp 44 mmHg (35-46) Arterial Blood pO2 at Patient Temp 60 mmHg (65-108) Arterial Blood HCO3 28 mmol/L (21-28) Arterial Blood Base Excess 3 mmol/L (-3-3) FiO2 70/vent Medications Active Scripts Medications Dose Route/Sig Max Daily Dose Days Date Category Lisinopril 20 Mg Tablet 1 Tab PO DAILY 02/17/20 Reported Norvasc (Amlodipine Besylate) 5 Mg Tablet 1 Tab PO DAILY 02/17/20 Reported Comments CXR 02/24/20 IMPRESSION: Increased small bilateral pleural effusions with adjacent compressive atelectasis versus infiltrates as well as mixed interstitial and alveolar airsp colby disease. Impression . IMPRESSION: 1. Acute hypoxic respiratory failure secondary to COVID-19 pneumonia/ARDS/acute lung injury. 2. Abnormal CT chest with diffuse and extensive bilateral infiltrates consistent with COVID-19 pneumonia. Cannot exclude superimposed bacterial pneumonia. No evidence of pulmonary embolism. 3. High D-dimer. Commonly seen in patients with COVID-19 pneumonia. We will continue high dose DVT prophylaxis. 4. No significant reported tobacco history. Plan . RECOMMENDATIONS: Continue current vent support. wean Fi02 70% and PEEP of 5 Follow CXR/ABG,-- no changes Will consider surgrical consult for tracheostomy if unable to being weaning trials Continue steroids with taper, will need full 10 day course Continue empiric ABX Tube feeding for nutritional support DVT/GI PPX D/W RN and RT Pt. is FULL CODE Critical care time [id number] BERKLEY BRANCH MD Feb 24, 2020 11:35
[2020-02-24 12:55] LABS: BASO % 0 % (0-3); EOS # 0.1 x10^3/uL (0.0-0.7); EOS % 1 % (0-3); HEMATOCRIT 36.7 % (36.0-47.0); HEMOGLOBIN 11.9 g/dL (12.0-15.5); LYMPH # 0.4 x10^3/uL (1.0-4.8); LYMPH % 4 % (24-48); MEAN CORPUSCULAR HEMOGLOBIN 29 pg (25-35); MEAN CORPUSCULAR HGB CONC 33 g/dL (31-37); MEAN CORPUSCULAR VOLUME 89 fL (79-100); MONO # 0.4 x10^3/uL (0.0-1.1); MONO % 3 % (0-9); NEUT # 10.4 x10^3/uL (1.8-7.7); NEUT % 91 % (31-73); PLATELET COUNT 262 x10^3/uL (140-400); RED BLOOD COUNT 4.14 x10^6/uL (3.50-5.40); RED CELL DISTRIBUTION WIDTH 13.7 % (11.5-14.5); WHITE BLOOD COUNT 11.3 x10^3/uL (4.0-11.0)
[2020-02-25] VITALS (24 sets, daily range): BP systolic 95–134; BP diastolic 59–80
[2020-02-25] MEDS: PIPERACILLIN/TAZOBACTAM 3.375 GM in IV NORMAL SALINE 50ML 50 ML IV SCH ×5 (00:07→23:44)
[2020-02-25] MEDS: MIDAZOLAM 100mg/100ml NS BAG 100 ML IV PRN ×3 (04:49→22:15)
[2020-02-25 06:12] LABS: BASO # 0.1 x10^3/uL (0.0-0.2); BASO % 1 % (0-3); EOS # 0.1 x10^3/uL (0.0-0.7); EOS % 1 % (0-3); HEMATOCRIT 34.1 % (36.0-47.0); HEMOGLOBIN 11.3 g/dL (12.0-15.5); LYMPH % 10 % (24-48); MEAN CORPUSCULAR HEMOGLOBIN 29 pg (25-35); MEAN CORPUSCULAR HGB CONC 33 g/dL (31-37); MEAN CORPUSCULAR VOLUME 88 fL (79-100); MONO # 0.6 x10^3/uL (0.0-1.1); MONO % 6 % (0-9); NEUT # 8.5 x10^3/uL (1.8-7.7); NEUT % 83 % (31-73); PLATELET COUNT 267 x10^3/uL (140-400); RED BLOOD COUNT 3.87 x10^6/uL (3.50-5.40); WHITE BLOOD COUNT 10.3 x10^3/uL (4.0-11.0)
[2020-02-25 06:28] LABS: CALCIUM 8.1 mg/dL (8.5-10.1); CREATININE 0.5 mg/dL (0.6-1.0); GFR 120.3; POTASSIUM 3.9 mmol/L (3.5-5.1)
--- NOTE | 2020-02-25 08:35 | PDOC ---
PULMONARY PROGRESS NOTES DATE: 02/25/20 TIME: 08:32 Subjective Pt. is on vent support 70% and PEEP of 5 low grade fever this am no concerns from nursing Vitals Vital Signs Date Time Temp Pulse Resp B/P (MAP) Pulse Ox O2 Delivery O2 Flow Rate FiO2 02/25/20 07:00 64 18 123/67 (85) 98 Ventilator 02/25/20 04:00 99.0 99.0 Comments Pt. seen during visual exam preformed, RRR VENT no distress or accessory muscle use no obvious edema or rash Labs Laboratory Tests Test 02/24/20 05:00 02/24/20 07:40 02/24/20 12:06 02/25/20 05:01 Sodium Level 139 mmol/L (136-145) 140 mmol/L (136-145) Potassium Level 3.8 mmol/L (3.5-5.1) 3.9 mmol/L (3.5-5.1) Chloride Level 105 mmol/L (98-107) 106 mmol/L (98-107) Carbon Dioxide Level 30 mmol/L (21-32) 30 mmol/L (21-32) Anion Gap 4 (6-14) 4 (6-14) Blood Urea Nitrogen 19 mg/dL (7-20) 20 mg/dL (7-20) Creatinine 0.6 mg/dL (0.6-1.0) 0.5 mg/dL (0.6-1.0) Estimated GFR (Cockcroft-Gault) 97.5 120.3 Glucose Level 152 mg/dL (70-99) 132 mg/dL (70-99) Calcium Level 8.1 mg/dL (8.5-10.1) 8.1 mg/dL (8.5-10.1) O2 Saturation 90 % (92-99) Arterial Blood pH 7.42 (7.35-7.45) Arterial Blood pCO2 at Patient Temp 44 mmHg (35-46) Arterial Blood pO2 at Patient Temp 60 mmHg (65-108) Arterial Blood HCO3 28 mmol/L (21-28) Arterial Blood Base Excess 3 mmol/L (-3-3) FiO2 70/vent White Blood Count 11.3 x10^3/uL (4.0-11.0) 10.3 x10^3/uL (4.0-11.0) Red Blood Count 4.14 x10^6/uL (3.50-5.40) 3.87 x10^6/uL (3.50-5.40) Hemoglobin 11.9 g/dL (12.0-15.5) 11.3 g/dL (12.0-15.5) Hematocrit 36.7 % (36.0-47.0) 34.1 % (36.0-47.0) Mean Corpuscular Volume 89 fL (79-100) 88 fL (79-100) Mean Corpuscular Hemoglobin 29 pg (25-35) 29 pg (25-35) Mean Corpuscular Hemoglobin Concent 33 g/dL (31-37) 33 g/dL (31-37) Red Cell Distribution Width 13.7 % (11.5-14.5) 14.0 % (11.5-14.5) Platelet Count 262 x10^3/uL (140-400) 267 x10^3/uL (140-400) Neutrophils (%) (Auto) 91 % (31-73) 83 % (31-73) Lymphocytes (%) (Auto) 4 % (24-48) 10 % (24-48) Monocytes (%) (Auto) 3 % (0-9) 6 % (0-9) Eosinophils (%) (Auto) 1 % (0-3) 1 % (0-3) Basophils (%) (Auto) 0 % (0-3) 1 % (0-3) Neutrophils # (Auto) 10.4 x10^3/uL (1.8-7.7) 8.5 x10^3/uL (1.8-7.7) Lymphocytes # (Auto) 0.4 x10^3/uL (1.0-4.8) 1.0 x10^3/uL (1.0-4.8) Monocytes # (Auto) 0.4 x10^3/uL (0.0-1.1) 0.6 x10^3/uL (0.0-1.1) Eosinophils # (Auto) 0.1 x10^3/uL (0.0-0.7) 0.1 x10^3/uL (0.0-0.7) Basophils # (Auto) 0.0 x10^3/uL (0.0-0.2) 0.1 x10^3/uL (0.0-0.2) Laboratory Tests Test 02/24/20 12:06 02/25/20 05:01 White Blood Count 11.3 x10^3/uL (4.0-11.0) 10.3 x10^3/uL (4.0-11.0) Red Blood Count 4.14 x10^6/uL (3.50-5.40) 3.87 x10^6/uL (3.50-5.40) Hemoglobin 11.9 g/dL (12.0-15.5) 11.3 g/dL (12.0-15.5) Hematocrit 36.7 % (36.0-47.0) 34.1 % (36.0-47.0) Mean Corpuscular Volume 89 fL (79-100) 88 fL (79-100) Mean Corpuscular Hemoglobin 29 pg (25-35) 29 pg (25-35) Mean Corpuscular Hemoglobin Concent 33 g/dL (31-37) 33 g/dL (31-37) Red Cell Distribution Width 13.7 % (11.5-14.5) 14.0 % (11.5-14.5) Platelet Count 262 x10^3/uL (140-400) 267 x10^3/uL (140-400) Neutrophils (%) (Auto) 91 % (31-73) 83 % (31-73) Lymphocytes (%) (Auto) 4 % (24-48) 10 % (24-48) Monocytes (%) (Auto) 3 % (0-9) 6 % (0-9) Eosinophils (%) (Auto) 1 % (0-3) 1 % (0-3) Basophils (%) (Auto) 0 % (0-3) 1 % (0-3) Neutrophils # (Auto) 10.4 x10^3/uL (1.8-7.7) 8.5 x10^3/uL (1.8-7.7) Lymphocytes # (Auto) 0.4 x10^3/uL (1.0-4.8) 1.0 x10^3/uL (1.0-4.8) Monocytes # (Auto) 0.4 x10^3/uL (0.0-1.1) 0.6 x10^3/uL (0.0-1.1) Eosinophils # (Auto) 0.1 x10^3/uL (0.0-0.7) 0.1 x10^3/uL (0.0-0.7) Basophils # (Auto) 0.0 x10^3/uL (0.0-0.2) 0.1 x10^3/uL (0.0-0.2) Sodium Level 140 mmol/L (136-145) Potassium Level 3.9 mmol/L (3.5-5.1) Chloride Level 106 mmol/L (98-107) Carbon Dioxide Level 30 mmol/L (21-32) Anion Gap 4 (6-14) Blood Urea Nitrogen 20 mg/dL (7-20) Creatinine 0.5 mg/dL (0.6-1.0) Estimated GFR (Cockcroft-Gault) 120.3 Glucose Level 132 mg/dL (70-99) Calcium Level 8.1 mg/dL (8.5-10.1) Medications Active Scripts Medications Dose Route/Sig Max Daily Dose Days Date Category Lisinopril 20 Mg Tablet 1 Tab PO DAILY 02/17/20 Reported Norvasc (Amlodipine Besylate) 5 Mg Tablet 1 Tab PO DAILY 02/17/20 Reported Comments CXR 02/24/20 IMPRESSION: Increased small bilateral pleural effusions with adjacent compressive atelectasis versus infiltrates as well as mixed interstitial and alveolar airspace disease. Impression . IMPRESSION: 1. Acute hypoxic respiratory failure secondary to COVID-19 pneumonia/ARDS/acute lung injury. 2. Abnormal CT chest with diffuse and extensive bilateral infiltrates consistent with COVID-19 pneumonia. Cannot exclude superimposed bacterial pneumonia. No evidence of pulmonary embolism. 3. High D-dimer. Commonly seen in patients with COVID-19 pneumonia. We will continue high dose DVT prophylaxis. 4. No significant reported tobacco history. Plan . RECOMMENDATIONS: Continue current vent support. wean Fi02 70% and PEEP of 5, wean Fi02 as tolerated Follow CXR/ABG,-- no changes Will consider surgrical consult for tracheostomy if unable to being weaning trials Continue steroids with taper, will need full 10 day course, started 02/16 Continue empiric ABX: zosyn and levaquin Tube feeding for nutritional support DVT/GI PPX D/W RN and RT Pt. is FULL CODE Critical care time [id number] BERKLEY BRANCH MD Feb 25, 2020 08:35
[2020-02-25] MEDS: guaiFENesin DM 600/30MG 1 TAB TAB.ER.12H PO SCH ×2 (09:00→20:27)
[2020-02-25] MEDS: DEXAMETHASONE SOD PHOS 4 MG/ML VIAL IVP SCH (09:16)
[2020-02-25] MEDS: FAMOTIDINE 20 MG/2 ML VIAL IVP SCH (09:16)
[2020-02-25] MEDS: ENOXAPARIN 40 MG/0.4 ML SYRINGE. SQ SCH ×2 (09:17→20:38)
[2020-02-25 09:24] LABS: BASE EXCESS ABG 3 mmol/L (-3-3); HCO3 ABG 28 mmol/L (21-28); PCO2 ABG 44 mmHg (35-46); PO2 ABG 67 mmHg (65-108); SAT O2 ABG 93 % (92-99)
[2020-02-25 09:29] LABS: FIO2 ABG 70
[2020-02-25] MEDS: VECURONIUM BOLUS 10 MG VIAL. IV PRN (11:00)
--- NOTE | 2020-02-25 11:27 | PN ---
DATE: 02/25/2020 SUBJECTIVE: The patient is resting, slightly propped up in bed, in no apparent respiratory distress. She continued to be sedated, intubated and mechanically ventilated. She is maintaining her oxygen saturation at 98% on FiO2 of 70%. The nursing staff did not voice any concerns that she has uneventful night. PHYSICAL EXAMINATION: GENERAL: When I examined her, she looked pale, but no jaundice, cyanosis or thyromegaly. No jugular venous distention. No limb edema. VITAL SIGNS: Her heart rate was 65, blood pressure was 134/72, temperature was 99, respiratory rate was 19, and oxygen saturation was 98%. HEAD, EYES, EARS, NOSE AND THROAT: Showed normocephalic, atraumatic. She has orotracheal and orogastric tube in place. NECK: Supple. HEART: Normal first and second heart sounds. No gallop or murmur. CHEST: Clear to auscultation. No crepitation or rhonchi anteriorly. ABDOMEN: Distended, soft, nontender. NEUROLOGIC: She is heavily sedated. Her intake over the last 24 hours was 4950, output was 1370. LABORATORY DATA: As of this morning, her white cell count was 10,000, hemoglobin 11, hematocrit 34, MCV 88, and platelet count 267,000 with normal manual differential. Her serum sodium was 140, potassium 3.9, chloride 106, bicarbonate 30, anion gap of 4, BUN 20, creatinine 0.5, estimated GFR was 120 mL per minute, her glucose 132 and calcium was 8.1. Her D-dimer was 2.21 and her blood gases showed a pH of 7.42, pCO2 of 44, pO2 of 60, oxygen saturation was 90% on FiO2 of 70%. ASSESSMENT: 1. COVID-19 pneumonia. 2. Acute hypoxic respiratory failure. 3. Acute respiratory distress syndrome. 4. Hypertension, however, blood pressure is within normal range. 5. Severe protein-calorie malnutrition. 6. Elevated D-dimer, however, CT angio of the chest was negative for pulmonary emboli. 7. Hypernatremia, resolved. Her most recent serum sodium is 139 mEq per liter. 8. She has new onset subcutaneous emphysema and pneumomediastinum. PLAN: 1. Obviously to continue with mechanical ventilation, wean as tolerated. 2. Continue IV antibiotic in the form of levofloxacin and Zosyn. 3. Continue GI and DVT prophylaxis. 4. For hypernatremia, her water flushes were increased to 300 mL every 4 hours and her sodium has normalized to 139 mEq per liter. SEUN SOSA MD DR: GUERLINE/gabriela JOB#: [id number] / [id number]
[2020-02-25] MEDS: fentaNYL HIGH DOSE PCA 55 ML IV PRN (12:34)
[2020-02-26] VITALS (24 sets, daily range): BP systolic 90–138; BP diastolic 53–67
[2020-02-26] MEDS: PIPERACILLIN/TAZOBACTAM 3.375 GM in IV NORMAL SALINE 50ML 50 ML IV SCH (05:35)
[2020-02-26] MEDS: MIDAZOLAM 100mg/100ml NS BAG 100 ML IV PRN ×2 (07:12→14:50)
[2020-02-26] MEDS: ENOXAPARIN 40 MG/0.4 ML SYRINGE. SQ SCH ×2 (08:11→20:44)
[2020-02-26] MEDS: guaiFENesin DM 600/30MG 1 TAB TAB.ER.12H PO SCH ×2 (08:11→20:44)
[2020-02-26] MEDS: DEXAMETHASONE SOD PHOS 4 MG/ML VIAL IVP SCH (08:12)
[2020-02-26] MEDS: FAMOTIDINE 20 MG/2 ML VIAL IVP SCH (08:12)
[2020-02-26 08:49] LABS: BASE EXCESS ABG 4 mmol/L (-3-3); HCO3 ABG 30 mmol/L (21-28); PCO2 ABG 50 mmHg (35-46); PO2 ABG 55 mmHg (65-108); SAT O2 ABG 88 % (92-99)
[2020-02-26 08:52] LABS: FIO2 ABG 70
[2020-02-26] MEDS: VECURONIUM BOLUS 10 MG VIAL. IV PRN (08:55)
[2020-02-26] MEDS: PROPOFOL 100 ML IV PRN ×2 (08:56→17:46)
--- NOTE | 2020-02-26 08:59 | PN ---
DATE: 02/26/2020 SUBJECTIVE: The patient is resting, slightly propped up in bed, no apparent distress. She continued to be sedated, intubated and mechanically ventilated. Her oxygen saturation is 92% on FiO2 of 70%. Her oxygen saturation improves when she is in her back, whenever she is on sides, her oxygen saturation drops. Nursing staff, however, did not voice any concerns that she had generally uneventful night. PHYSICAL EXAMINATION: GENERAL: When I examined her, she was pale, but no jaundice, cyanosis or thyromegaly. No jugular venous distention. No lower limb edema. VITAL SIGNS: Her heart rate was 73, blood pressure was 127/63, temperature 97.7, respiratory rate was 18, and oxygen saturation was 92% on FiO2 of 70%. HEAD, EYES, EARS, NOSE AND THROAT: Showed normocephalic, atraumatic. NECK: Supple. HEART: Normal first and second heart sounds. No gallop, rub or murmur. CHEST: Clear to auscultation. No crepitation or rhonchi. ABDOMEN: Distended, soft, nontender. NEUROLOGIC: She is heavily sedated. Her intake was 4700, output was 2600. LABORATORY DATA: Today's labs are still pending at the time of this dictation. As of yesterday, her white cell count was 10,000, hemoglobin 11, hematocrit 34, MCV 88 and platelet count 267,000. Her chemistry showed a serum sodium 140, potassium 3.9, chloride 106, bicarbonate 30, anion gap of 4, BUN 20, creatinine 0.5, estimated GFR was 120 mL per minute. Her glucose 132, calcium was 8.1. Her blood gases as of yesterday showed a pH of 7.42, pCO2 of 44, pO2 of 67, bicarbonate 28, and oxygen saturation was 93% on FiO2 of 70%. ASSESSMENT: 1. COVID-19 pneumonia. 2. Acute hypoxic respiratory failure. 3. Acute respiratory distress syndrome. 4. Hypertension, however, the patient is normotensive. 5. Severe protein-calorie malnutrition. 6. Elevated D-dimer; however, CT angio of the chest was negative for pulmonary emboli. 7. Hypernatremia, resolved. Her most recent serum sodium was 139 mEq per liter. 8. She has new onset subcutaneous emphysema and pneumomediastinum. PLAN: To obviously continue with mechanical ventilation, wean as tolerated. Continue with IV antibiotic. Continue GI and DVT prophylaxis. Continue to monitor her lab work. SEUN SOSA MD DR: GUERLINE/gabriela JOB#: [id number] / [id number]
--- NOTE | 2020-02-26 10:28 | PDOC ---
PULMONARY PROGRESS NOTES DATE: 02/26/20 TIME: 10:21 Subjective Pt. is on vent support 70% and PEEP of 5 no concerns from nursing Vitals Vital Signs Date Time Temp Pulse Resp B/P (MAP) Pulse Ox O2 Delivery O2 Flow Rate FiO2 02/26/20 09:00 66 18 105/60 (75) 92 Ventilator 02/26/20 08:00 98.8 98.8 Comments Pt. seen during COVID- pandemic visual exam preformed, RRR VENT no distress or accessory muscle use no obvious edema or rash Labs Laboratory Tests Test 02/24/20 12:06 02/25/20 05:01 02/25/20 09:15 02/26/20 00:03 White Blood Count 11.3 x10^3/uL (4.0-11.0) 10.3 x10^3/uL (4.0-11.0) Red Blood Count 4.14 x10^6/uL (3.50-5.40) 3.87 x10^6/uL (3.50-5.40) Hemoglobin 11.9 g/dL (12.0-15.5) 11.3 g/dL (12.0-15.5) Hematocrit 36.7 % (36.0-47.0) 34.1 % (36.0-47.0) Mean Corpuscular Volume 89 fL (79-100) 88 fL (79-100) Mean Corpuscular Hemoglobin 29 pg (25-35) 29 pg (25-35) Mean Corpuscular Hemoglobin Concent 33 g/dL (31-37) 33 g/dL (31-37) Red Cell Distribution Width 13.7 % (11.5-14.5) 14.0 % (11.5-14.5) Platelet Count 262 x10^3/uL (140-400) 267 x10^3/uL (140-400) Neutrophils (%) (Auto) 91 % (31-73) 83 % (31-73) Lymphocytes (%) (Auto) 4 % (24-48) 10 % (24-48) Monocytes (%) (Auto) 3 % (0-9) 6 % (0-9) Eosinophils (%) (Auto) 1 % (0-3) 1 % (0-3) Basophils (%) (Auto) 0 % (0-3) 1 % (0-3) Neutrophils # (Auto) 10.4 x10^3/uL (1.8-7.7) 8.5 x10^3/uL (1.8-7.7) Lymphocytes # (Auto) 0.4 x10^3/uL (1.0-4.8) 1.0 x10^3/uL (1.0-4.8) Monocytes # (Auto) 0.4 x10^3/uL (0.0-1.1) 0.6 x10^3/uL (0.0-1.1) Eosinophils # (Auto) 0.1 x10^3/uL (0.0-0.7) 0.1 x10^3/uL (0.0-0.7) Basophils # (Auto) 0.0 x10^3/uL (0.0-0.2) 0.1 x10^3/uL (0.0-0.2) Sodium Level 140 mmol/L (136-145) Potassium Level 3.9 mmol/L (3.5-5.1) Chloride Level 106 mmol/L (98-107) Carbon Dioxide Level 30 mmol/L (21-32) Anion Gap 4 (6-14) Blood Urea Nitrogen 20 mg/dL (7-20) Creatinine 0.5 mg/dL (0.6-1.0) Estimated GFR (Cockcroft-Gault) 120.3 Glucose Level 132 mg/dL (70-99) Calcium Level 8.1 mg/dL (8.5-10.1) O2 Saturation 93 % (92-99) Arterial Blood pH 7.42 (7.35-7.45) Arterial Blood pCO2 at Patient Temp 44 mmHg (35-46) Arterial Blood pO2 at Patient Temp 67 mmHg (65-108) Arterial Blood HCO3 28 mmol/L (21-28) Arterial Blood Base Excess 3 mmol/L (-3-3) FiO2 70 Glucose (Fingerstick) 124 mg/dL (70-99) Test 02/26/20 08:15 O2 Saturation 88 % (92-99) Arterial Blood pH 7.40 (7.35-7.45) Arterial Blood pCO2 at Patient Temp 50 mmHg (35-46) Arterial Blood pO2 at Patient Temp 55 mmHg (65-108) Arterial Blood HCO3 30 mmol/L (21-28) Arterial Blood Base Excess 4 mmol/L (-3-3) FiO2 70 Laboratory Tests Test 02/26/20 00:03 02/26/20 08:15 Glucose (Fingerstick) 124 mg/dL (70-99) O2 Saturation 88 % (92-99) Arterial Blood pH 7.40 (7.35-7.45) Arterial Blood pCO2 at Patient Temp 50 mmHg (35-46) Arterial Blood pO2 at Patient Temp 55 mmHg (65-108) Arterial Blood HCO3 30 mmol/L (21-28) Arterial Blood Base Excess 4 mmol/L (-3-3) FiO2 70 Medications Active Scripts Medications Dose Route/Sig Max Daily Dose Days Date Category Lisinopril 20 Mg Tablet 1 Tab PO DAILY 02/17/20 Reported Norvasc (Amlodipine Besylate) 5 Mg Tablet 1 Tab PO DAILY 02/17/20 Reported Comments CXR 02/24/20 IMPRESSION: Increased small bilateral pleural effusions with adjacent compressive atelectasis versus infiltrates as well as mixed interstitial and alveolar airspace disease. Impression . IMPRESSION: 1. Acute hypoxic respiratory failure secondary to COVID-19 pneumonia/ARDS/acute lung injury. 2. Abnormal CT chest with diffuse and extensive bilateral infiltrates consistent with COVID-19 pneumonia. Cannot exclude superimposed bacterial pneumonia. No evidence of pulmonary embolism. 3. High D-dimer. Commonly seen in patients with COVID-19 pneumonia. We will continue high dose DVT prophylaxis. 4. No significant reported tobacco history. Plan . RECOMMENDATIONS: Continue current vent support A/C 16/450/5/70% Follow CXR/ABG,-- no changes Consult surgery, Dr. Osuna for tracheostomy placement Continue steroids with taper, will need full 10 day course, started 02/16--D/C on 02/26 DC antibiotics as patient has completed a full course Zosyn started on 02/16, completed full 10-day course, Levaquin started on 02/18/20, completed full 7-day course, monitor off antibiotics Tube feeding for nutritional support DVT/GI PPX D/W RN and RT Pt. is FULL CODE Critical care time [id number] BERKLEY BRANCH MD Feb 26, 2020 10:28
--- NOTE | 2020-02-26 12:08 | PDOC2 ---
CONSULT Date of Consult Date of Consult DATE: 02/26/20 TIME: 12:04 Reason for Consult Reason for Consult: trach Referring Physician Referring Physician: Dr Lopez Identification/Chief Complaint Chief Complaint SOA Source Source: Caregiver, Chart review History of Present Illness Reason for Visit: +covid, worsening respiratory status, requiring intubation at this point unable to extubate Past Medical History Cardiovascular: HTN Past Surgical History Past Surgical History: No pertinent history Family History Family History: Family History Unknown Social History Social History unknown Current Medications Current Medications Current Medications Midazolam HCl (Versed) 5 mg STK-MED ONCE .ROUTE ; Start 02/17/20 at 11:24; Stop 02/17/20 at 11:25; Status DC Info (FLU VACCINE SCREEN per RX) 1 each PRN DAILY PRN MC SEE COMMENTS; Start 02/17/20 at 12:00 Piperacillin Sod/ Tazobactam Sod 3.375 gm/Sodium Chloride 50 ml @ 100 mls/hr Q6HRS IV Last administered on 02/26/20at 05:35; Start 02/17/20 at 12:30; Stop 02/26/20 at 10:28; Status DC Guaifenesin (MUCINEX ER with DM) 1 tab BID PO Last administered on 02/22/20at 09:02; Start 02/17/20 at 12:30 Amlodipine Besylate (Norvasc) 5 mg DAILY PO ; Start 02/17/20 at 12:30; Stop 02/18/20 at 08:25; Status DC Lisinopril (Prinivil) 20 mg DAILY PO ; Start 02/17/20 at 12:30; Stop 02/18/20 at 08:25; Status DC Azithromycin (Zithromax) 250 mg DAILY PO Last administered on 02/18/20at 08:11; Start 02/17/20 at 12:30; Stop 02/18/20 at 08:25; Status DC Dexamethasone Sodium Phosphate (Decadron) 4 mg Q6HRS IVP Last administered on 02/20/20at 05:36; Start 02/17/20 at 12:30; Stop 02/20/20 at 09:19; Status DC Enoxaparin Sodium (Lovenox 40mg Syringe) 40 mg Q24H SQ ; Start 02/17/20 at 21:00; Stop 02/17/20 at 16:45; Status DC Levofloxacin/ Dextrose 150 ml @ 100 mls/hr Q48H IV Last administered on 02/18/20at 18:06; Start 02/18/20 at 18:00; Stop 02/20/20 at 09:13; Status DC Fentanyl Citrate 30 ml @ 0 mls/hr CONT PRN IV SEE PROTOCOL Last administered on 02/25/20 03:56; Start 02/17/20 at 12:30; Stop 02/25/20 at 12:21; Status DC Propofol 100 ml @ 0 mls/hr CONT PRN IV PER PROTOCOL Last administered on 02/26/20 08:56; Start 02/17/20 at 12:30 Glycerin/ Hypromellose/ Polyethylene (Artificial Tears) 1 drop PRN Q1HR PRN OU DRY EYE; Start 02/17/20 at 12:30 Famotidine (Pepcid Vial) 20 mg BID IVP Last administered on 02/17/20at 20:31; Start 02/17/20 at 12:30; Stop 02/18/20 at 07:59; Status DC Midazolam HCl 100 ml @ 0 mls/hr CONT PRN IV SEE PROTOCOL Last administered on 02/26/20 07:12; Start 02/17/20 at 12:30 Vecuronium Haugen (Norcuron Bolus) 6 mg PRN Q6HRS PRN IV SEDATION Last administered on 02/26/20 08:55; Start 02/17/20 at 12:45 Enoxaparin Sodium (Lovenox 40mg Syringe) 40 mg Q12HR SQ Last administered on 02/26/20 08:11; Start 02/17/20 at 21:00 Famotidine (Pepcid Vial) 20 mg DAILY IVP Last administered on 02/26/20 08:12; Start 02/18/20 at 09:00 Midazolam HCl (Versed) 5 mg STK-MED ONCE .ROUTE ; Start 02/17/20 at 11:30; Stop 02/20/20 at 08:40; Status DC Levofloxacin/ Dextrose 150 ml @ 100 mls/hr Q24H IV Last administered on 02/25/20 17:15; Start 02/20/20 at 18:00; Stop 02/26/20 at 10:28; Status DC Dexamethasone Sodium Phosphate (Decadron) 6 mg DAILY IVP Last administered on 02/24/20at 08:41; Start 02/21/20 at 09:00; Stop 02/25/20 at 08:32; Status DC Dexamethasone Sodium Phosphate (Decadron) 4 mg DAILY IVP Last administered on 02/26/20at 08:12; Start 02/25/20 at 09:00 Fentanyl Citrate 55 ml @ 0 mls/hr CONT PRN IV see protocol Last administered on 02/25/20at 12:34; Start 02/25/20 at 12:30 Active Scripts Active Reported Lisinopril 20 Mg Tablet 1 Tab PO DAILY Norvasc (Amlodipine Besylate) 5 Mg Tablet 1 Tab PO DAILY Allergies Allergies: Coded Allergies: No Known Drug Allergies (Unverified , 02/17/20) ROS Review of System unable to obtain Physical Exam General: Other (sedated ) HEENT: Atraumatic Lungs: Other (mech vent) Heart: Regular rate Extremities: No clubbing, No cyanosis Vitals VITALS Vital Signs Date Time Temp Pulse Resp B/P (MAP) Pulse Ox O2 Delivery O2 Flow Rate FiO2 02/26/20 11:00 62 18 98/59 (72) 92 Ventilator 02/26/20 08:00 98.8 98.8 Labs Labs Laboratory Tests Test 02/24/20 12:06 02/25/20 05:01 02/25/20 09:15 02/26/20 00:03 White Blood Count 11.3 x10^3/uL (4.0-11.0) 10.3 x10^3/uL (4.0-11.0) Red Blood Count 4.14 x10^6/uL (3.50-5.40) 3.87 x10^6/uL (3.50-5.40) Hemoglobin 11.9 g/dL (12.0-15.5) 11.3 g/dL (12.0-15.5) Hematocrit 36.7 % (36.0-47.0) 34.1 % (36.0-47.0) Mean Corpuscular Volume 89 fL (79-100) 88 fL (79-100) Mean Corpuscular Hemoglobin 29 pg (25-35) 29 pg (25-35) Mean Corpuscular Hemoglobin Concent 33 g/dL (31-37) 33 g/dL (31-37) Red Cell Distribution Width 13.7 % (11.5-14.5) 14.0 % (11.5-14.5) Platelet Count 262 x10^3/uL (140-400) 267 x10^3/uL (140-400) Neutrophils (%) (Auto) 91 % (31-73) 83 % (31-73) Lymphocytes (%) (Auto) 4 % (24-48) 10 % (24-48) Monocytes (%) (Auto) 3 % (0-9) 6 % (0-9) Eosinophils (%) (Auto) 1 % (0-3) 1 % (0-3) Basophils (%) (Auto) 0 % (0-3) 1 % (0-3) Neutrophils # (Auto) 10.4 x10^3/uL (1.8-7.7) 8.5 x10^3/uL (1.8-7.7) Lymphocytes # (Auto) 0.4 x10^3/uL (1.0-4.8) 1.0 x10^3/uL (1.0-4.8) Monocytes # (Auto) 0.4 x10^3/uL (0.0-1.1) 0.6 x10^3/uL (0.0-1.1) Eosinophils # (Auto) 0.1 x10^3/uL (0.0-0.7) 0.1 x10^3/uL (0.0-0.7) Basophils # (Auto) 0.0 x10^3/uL (0.0-0.2) 0.1 x10^3/uL (0.0-0.2) Sodium Level 140 mmol/L (136-145) Potassium Level 3.9 mmol/L (3.5-5.1) Chloride Level 106 mmol/L (98-107) Carbon Dioxide Level 30 mmol/L (21-32) Anion Gap 4 (6-14) Blood Urea Nitrogen 20 mg/dL (7-20) Creatinine 0.5 mg/dL (0.6-1.0) Estimated GFR (Cockcroft-Gault) 120.3 Glucose Level 132 mg/dL (70-99) Calcium Level 8.1 mg/dL (8.5-10.1) O2 Saturation 93 % (92-99) Arterial Blood pH 7.42 (7.35-7.45) Arterial Blood pCO2 at Patient Temp 44 mmHg (35-46) Arterial Blood pO2 at Patient Temp 67 mmHg (65-108) Arterial Blood HCO3 28 mmol/L (21-28) Arterial Blood Base Excess 3 mmol/L (-3-3) FiO2 70 Glucose (Fingerstick) 124 mg/dL (70-99) Test 02/26/20 08:15 O2 Saturation 88 % (92-99) Arterial Blood pH 7.40 (7.35-7.45) Arterial Blood pCO2 at Patient Temp 50 mmHg (35-46) Arterial Blood pO2 at Patient Temp 55 mmHg (65-108) Arterial Blood HCO3 30 mmol/L (21-28) Arterial Blood Base Excess 4 mmol/L (-3-3) FiO2 70 Laboratory Tests Test 02/26/20 00:03 02/26/20 08:15 Glucose (Fingerstick) 124 mg/dL (70-99) O2 Saturation 88 % (92-99) Arterial Blood pH 7.40 (7.35-7.45) Arterial Blood pCO2 at Patient Temp 50 mmHg (35-46) Arterial Blood pO2 at Patient Temp 55 mmHg (65-108) Arterial Blood HCO3 30 mmol/L (21-28) Arterial Blood Base Excess 4 mmol/L (-3-3) FiO2 70 Assessment/Plan Assessment/Plan Covid +, resp failure will follow for possible trach needs NICO NEIL APRN Feb 26, 2020 12:08
[2020-02-26] MEDS: fentaNYL HIGH DOSE PCA 55 ML IV PRN (14:21)
[2020-02-27] VITALS (24 sets, daily range): BP systolic 87–146; BP diastolic 47–82
[2020-02-27] MEDS: MIDAZOLAM 100mg/100ml NS BAG 100 ML IV PRN ×3 (01:15→23:57)
[2020-02-27 07:33] LABS: HEMATOCRIT 35.6 % (36.0-47.0); HEMOGLOBIN 11.7 g/dL (12.0-15.5)
[2020-02-27] MEDS: DEXAMETHASONE SOD PHOS 4 MG/ML VIAL IVP SCH (07:42)
[2020-02-27] MEDS: guaiFENesin DM 600/30MG 1 TAB TAB.ER.12H PO SCH ×2 (07:42→20:09)
[2020-02-27] MEDS: PROPOFOL 100 ML IV PRN (07:42)
[2020-02-27] MEDS: FAMOTIDINE 20 MG/2 ML VIAL IVP SCH (07:42)
[2020-02-27] MEDS: ENOXAPARIN 40 MG/0.4 ML SYRINGE. SQ SCH ×2 (07:43→20:09)
[2020-02-27 07:53] LABS: CALCIUM 7.9 mg/dL (8.5-10.1); CREATININE 0.5 mg/dL (0.6-1.0); GFR 120.3; POTASSIUM 3.6 mmol/L (3.5-5.1)
[2020-02-27 08:25] LABS: BASE EXCESS ABG 5 mmol/L (-3-3); HCO3 ABG 31 mmol/L (21-28); PCO2 ABG 49 mmHg (35-46); PO2 ABG 63 mmHg (65-108); SAT O2 ABG 92 % (92-99)
--- NOTE | 2020-02-27 08:28 | PN ---
DATE: 02/27/2020 SUBJECTIVE: The patient is resting, slightly propped up in bed, no apparent distress. She is heavily sedated, intubated and mechanically ventilated. Nursing staff did not voice any concerns, stated that she has an uneventful night. Apparently, she was seen by the surgical team and plan is for possible tracheostomy tube placement. PHYSICAL EXAMINATION: GENERAL: When I examined her, she was pale, no jaundice, cyanosis or thyromegaly. No jugular venous distention. No limb edema. VITAL SIGNS: Her heart rate was 65, blood pressure was 109/59, temperature was 98.4, respiratory rate was 16, and oxygen saturation was 94% on FiO2 of 70%. HEAD, EYES, EARS, NOSE AND THROAT: Showed normocephalic, atraumatic. She has orotracheal and orogastric tube in place. NECK: Supple. HEART: Normal first and second heart sounds. No gallop or murmur. CHEST: Clear to auscultation. No crepitation or rhonchi anteriorly. ABDOMEN: Distended, soft, nontender. NEUROLOGIC: She is heavily sedated. Her intake over the last 24 hours was 5000, output was 2700. LABORATORY DATA: Her H and H was 11.7 and 35.6. Her chemistry this morning showed a serum sodium 142, potassium 3.6, chloride 106, bicarbonate 32, anion gap of 4, BUN 20, creatinine 0.5, estimated GFR was 120 mL per minute, her glucose 128 and calcium was 7.9. ASSESSMENT: 1. COVID-19 pneumonia. 2. Acute hypoxic respiratory failure. 3. Acute respiratory distress syndrome. 4. Hypertension, however, the patient is normotensive. 5. Severe protein-calorie malnutrition. 6. Elevated D-dimer; however, CT angio of the chest was negative for pulmonary embolism. 7. Hypernatremia, resolved. Her most recent serum sodium was 142 mEq per liter. 8. She has new onset subcutaneous emphysema and pneumomediastinum. PLAN: To obviously continue with mechanical ventilation, wean as tolerated. Continue IV antibiotic. Continue GI and DVT prophylaxis. Continue to monitor her lab work. She was seen by the surgical team for possible tracheostomy tube placement. SEUN SOSA MD DR: GUERLINE/gabriela JOB#: [id number] / [id number]
--- NOTE | 2020-02-27 09:00 | RAD ---
EXAM: Chest, single view. HISTORY: Respiratory failure. COMPARISON: 02/24/2020 FINDINGS: A frontal view of the chest is obtained. There has been slight interval decrease in diffuse mixed interstitial and alveolar infiltrate likely superimposed on chronic interstitial changes. Ther e aren't suspected trace pleural effusions. There is no pneumothorax. The heart is normal in size. Th ere is a nasogastric tube within the stomach. IMPRESSION: Slight interval decrease in diffuse mixed interstitial and alveolar infiltrate and suspec shaheen trace pleural effusions. Electronically signed by: Chantal Galeas MD (02/27/2020 8:57 AM) [id number]
[2020-02-27 09:31] LABS: FIO2 ABG 70% VENT
--- NOTE | 2020-02-27 11:26 | PDOC ---
PULMONARY PROGRESS NOTES DATE: 02/27/20 TIME: 11:26 Subjective Pt. is on vent support 70% and PEEP of 5 no clinical improvement no concerns from nursing Vitals Vital Signs Date Time Temp Pulse Resp B/P (MAP) Pulse Ox O2 Delivery O2 Flow Rate FiO2 02/27/20 11:00 82 22 114/59 (77) 94 Ventilator 02/27/20 08:00 98.4 98.4 Comments Pt. seen during visual exam preformed, RRR VENT no distress or accessory muscle use no obvious edema or rash Labs Laboratory Tests Test 02/26/20 00:03 02/26/20 08:15 02/27/20 07:20 02/27/20 08:20 Glucose (Fingerstick) 124 mg/dL (70-99) O2 Saturation 88 % (92-99) 92 % (92-99) Arterial Blood pH 7.40 (7.35-7.45) 7.41 (7.35-7.45) Arterial Blood pCO2 at Patient Temp 50 mmHg (35-46) 49 mmHg (35-46) Arterial Blood pO2 at Patient Temp 55 mmHg (65-108) 63 mmHg (65-108) Arterial Blood HCO3 30 mmol/L (21-28) 31 mmol/L (21-28) Arterial Blood Base Excess 4 mmol/L (-3-3) 5 mmol/L (-3-3) FiO2 70 70% vent Hemoglobin 11.7 g/dL (12.0-15.5) Hematocrit 35.6 % (36.0-47.0) Sodium Level 142 mmol/L (136-145) Potassium Level 3.6 mmol/L (3.5-5.1) Chloride Level 106 mmol/L (98-107) Carbon Dioxide Level 32 mmol/L (21-32) Anion Gap 4 (6-14) Blood Urea Nitrogen 20 mg/dL (7-20) Creatinine 0.5 mg/dL (0.6-1.0) Estimated GFR (Cockcroft-Gault) 120.3 Glucose Level 128 mg/dL (70-99) Calcium Level 7.9 mg/dL (8.5-10.1) Laboratory Tests Test 02/27/20 07:20 02/27/20 08:20 Hemoglobin 11.7 g/dL (12.0-15.5) Hematocrit 35.6 % (36.0-47.0) Sodium Level 142 mmol/L (136-145) Potassium Level 3.6 mmol/L (3.5-5.1) Chloride Level 106 mmol/L (98-107) Carbon Dioxide Level 32 mmol/L (21-32) Anion Gap 4 (6-14) Blood Urea Nitrogen 20 mg/dL (7-20) Creatinine 0.5 mg/dL (0.6-1.0) Estimated GFR (Cockcroft-Gault) 120.3 Glucose Level 128 mg/dL (70-99) Calcium Level 7.9 mg/dL (8.5-10.1) O2 Saturation 92 % (92-99) Arterial Blood pH 7.41 (7.35-7.45) Arterial Blood pCO2 at Patient Temp 49 mmHg (35-46) Arterial Blood pO2 at Patient Temp 63 mmHg (65-108) Arterial Blood HCO3 31 mmol/L (21-28) Arterial Blood Base Excess 5 mmol/L (-3-3) FiO2 70% vent Medications Active Scripts Medications Dose Route/Sig Max Daily Dose Days Date Category Lisinopril 20 Mg Tablet 1 Tab PO DAILY 02/17/20 Reported Norvasc (Amlodipine Besylate) 5 Mg Tablet 1 Tab PO DAILY 02/17/20 Reported Comments CXR 02/27/20 IMPRESSION: Slight interval decrease in diffuse mixed interstitial and alveolar infiltrate and suspected trace pleural effusions. Impression . IMPRESSION: 1. Acute hypoxic respiratory failure secondary to COVID-19 pneumonia/ARDS/acute lung injury. 2. Abnormal CT chest with diffuse and extensive bilateral infiltrates consistent with COVID-19 pneumonia. Cannot exclude superimposed bacterial pneumonia. No evidence of pulmonary embolism. 3. High D-dimer. Commonly seen in patients with COVID-19 pneumonia. We will continue high dose DVT prophylaxis. 4. No significant reported tobacco history. Plan . RECOMMENDATIONS: Continue current vent support Fi02 70% and PEEP 5 Follow CXR/ABG,-- no changes Follow surgery recs for trach placement D/C steroids has completed full 10 day course Zosyn started on 02/16, completed full 10-day course, Levaquin started on 02/18/20, completed full 7-day course, monitor off antibiotics Tube feeding for nutritional support DVT/GI PPX D/W RN and RT Pt. is FULL CODE Critical care time [id number] BERKLEY BRANCH MD 4, 2021 11:26
--- NOTE | 2020-02-27 16:13 | NUR ---
SS following up with discharge planning. SS reviewed pt chart and discussed with pt RN. Pt is from home with spouse and is currently on the vent at 70%. COVID19 positive. Not stable. SS will continue to follow for discharge planning.
--- NOTE | 2020-02-27 18:11 | NUR ---
Wound/Ostomy Care Wound Type/Assessment: Wound consult for coccyx wound, pt has intertrigo to gluteal cleft with pale pink wound bed. Cleansed, assessed and redressed wound Treatment Recommendations/Plan: Applied contact layer and foam applied. Recommend to change every 3 days. Education provided: WC POC and PU prevention discussed with [place]. Offloading surface/device: ICU bed, TQ2H Recommended Referrals/Tests: na Discharge Recommendations for dressings: continue as above noted.
[2020-02-28] VITALS (24 sets, daily range): BP systolic 96–161; BP diastolic 49–72
[2020-02-28] MEDS: fentaNYL HIGH DOSE PCA 55 ML IV PRN (04:42)
--- NOTE | 2020-02-28 08:01 | PN ---
DATE: 02/28/2020 SUBJECTIVE: The patient is resting, slightly propped up in bed, continues to be sedated, intubated and mechanically ventilated. She is maintaining her oxygen saturation at 97% on FiO2 of 70%. Nursing staff did not voice any concerns that she has an uneventful night. PHYSICAL EXAMINATION: GENERAL: When I examined her, she looked well, somewhat pale, but no jaundice, cyanosis, or thyromegaly. No jugular venous distension. No lower limb edema. VITAL SIGNS: Her heart rate was 60, blood pressure was 133/65, temperature was 98.6, respiratory rate was 16, and oxygen saturation was 96%. HEENT: Showed normocephalic, atraumatic. She has orotracheal and orogastric tube in place. NECK: Supple. HEART: Normal first and second heart sounds. No gallop or murmurs. CHEST: Clear to auscultation. No crepitation or rhonchi. ABDOMEN: Distended, soft, nontender. NEUROLOGIC: She is heavily sedated. Her intake over the last 24 hours was 4730 output was 2675. LABORATORY DATA: As of yesterday, her H and H was 11.7 and 35.6. Her chemistry showed a serum sodium 142, potassium 3.6, chloride 106, bicarbonate 32, anion gap of 4, BUN 20, creatinine 0.5, estimated GFR was 120 mL per minute, her glucose 128 and calcium was 7.9. ASSESSMENT: 1. COVID-19 pneumonia. 2. Acute hypoxic respiratory failure. 3. Acute respiratory distress syndrome. 4. Hypertension, however, the patient is normotensive. 5. Severe protein-calorie malnutrition. 6. Elevated D-dimer; however, CT angio of the chest was negative for pulmonary emboli. 7. Hypernatremia that has resolved and most recent serum sodium is 142 mEq per liter. 8. She has a new-onset subcutaneous emphysema and pneumomediastinum. PLAN: To continue with mechanical ventilation and wean as tolerated. Continue with IV antibiotic. Continue GI and DVT prophylaxis. Continue to monitor her lab work. She was seen by the surgical team; however, no plan as she had for tracheostomy tube placement. SEUN SOSA MD DR: GUERLINE/gabriela JOB#: [id number] / [id number]
[2020-02-28 08:11] LABS: BASE EXCESS ABG 9 mmol/L (-3-3); HCO3 ABG 33 mmol/L (21-28); PCO2 ABG 46 mmHg (35-46); PO2 ABG 64 mmHg (65-108); SAT O2 ABG 93 % (92-99)
[2020-02-28] MEDS: guaiFENesin DM 600/30MG 1 TAB TAB.ER.12H PO SCH ×2 (09:00→20:48)
[2020-02-28] MEDS: ENOXAPARIN 40 MG/0.4 ML SYRINGE. SQ SCH ×2 (09:08→20:48)
[2020-02-28] MEDS: FAMOTIDINE 20 MG/2 ML VIAL IVP SCH (09:08)
--- NOTE | 2020-02-28 09:09 | PDOC ---
PULMONARY PROGRESS NOTES DATE: 02/28/20 TIME: 09:08 Subjective Pt. is on vent support 70% and PEEP of 5 no clinical change no concerns from nursing Vitals Vital Signs Date Time Temp Pulse Resp B/P (MAP) Pulse Ox O2 Delivery O2 Flow Rate FiO2 02/28/20 09:00 61 16 115/58 (77) 99 Ventilator 02/28/20 04:00 98.6 98.6 Comments Pt. seen during COVID- pandemic visual exam preformed, RRR VENT no distress or accessory muscle use no obvious edema or rash Labs Laboratory Tests Test 02/27/20 07:20 02/27/20 08:20 Hemoglobin 11.7 g/dL (12.0-15.5) Hematocrit 35.6 % (36.0-47.0) Sodium Level 142 mmol/L (136-145) Potassium Level 3.6 mmol/L (3.5-5.1) Chloride Level 106 mmol/L (98-107) Carbon Dioxide Level 32 mmol/L (21-32) Anion Gap 4 (6-14) Blood Urea Nitrogen 20 mg/dL (7-20) Creatinine 0.5 mg/dL (0.6-1.0) Estimated GFR (Cockcroft-Gault) 120.3 Glucose Level 128 mg/dL (70-99) Calcium Level 7.9 mg/dL (8.5-10.1) O2 Saturation 92 % (92-99) Arterial Blood pH 7.41 (7.35-7.45) Arterial Blood pCO2 at Patient Temp 49 mmHg (35-46) Arterial Blood pO2 at Patient Temp 63 mmHg (65-108) Arterial Blood HCO3 31 mmol/L (21-28) Arterial Blood Base Excess 5 mmol/L (-3-3) FiO2 70% vent Medications Active Scripts Medications Dose Route/Sig Max Daily Dose Days Date Category Lisinopril 20 Mg Tablet 1 Tab PO DAILY 02/17/20 Reported Norvasc (Amlodipine Besylate) 5 Mg Tablet 1 Tab PO DAILY 02/17/20 Reported Comments CXR 02/27/20 IMPRESSION: Slight interval decrease in diffuse mixed interstitial and alveolar infiltrate and suspected trace pleural effusions. Impression . IMPRESSION: 1. Acute hypoxic respiratory failure secondary to COVID-19 pneumonia/ARDS/acute lung injury--- improving 2. Abnormal CT chest with diffuse and extensive bilateral infiltrates consistent with COVID-19 pneumonia. Cannot exclude superimposed bacterial pneumonia. No evidence of pulmonary embolism. 3. High D-dimer. Commonly seen in patients with COVID-19 pneumonia. We will continue high dose DVT prophylaxis. 4. No significant reported tobacco history. Plan . RECOMMENDATIONS: Continue current vent support Fi02 70% and PEEP 5 Follow CXR/ABG,-- will increase PEEP to 7 and decrease Fi02 to 60% Follow surgery recs for trach placement D/C steroids has completed full 10 day course Zosyn started on 02/16, completed full 10-day course, Levaquin started on 02/18/20, completed full 7-day course, monitor off antibiotics Tube feeding for nutritional support DVT/GI PPX D/W RN and RT Pt. is FULL CODE Critical care time [id number] KYM LOPEZ MD Feb 28, 2020 09:09
[2020-02-28 09:30] LABS: FIO2 ABG 70% VENT
[2020-02-28] MEDS: MIDAZOLAM 100mg/100ml NS BAG 100 ML IV PRN ×2 (10:29→20:48)
--- NOTE | 2020-02-28 12:00 | PDOC ---
SURGICAL PROGRESS NOTE DATE: 02/28/20 TIME: 11:58 Subjective Pt orally intubated Vital Signs Vital Signs Date Time Temp Pulse Resp B/P (MAP) Pulse Ox O2 Delivery O2 Flow Rate FiO2 02/28/20 11:00 64 16 133/67 (89) 97 Ventilator 02/28/20 09:00 98.1 98.1 I&O Intake and Output 02/28/20 07:00 Intake Total 2793.75 ml Output Total 2235 ml Balance 558.75 ml Intake Oral 0 ml IV Total 388.75 ml Tube Feeding 1780 ml Other 625 ml Output Urine Total 2235 ml Gastric Drainage Total 0 ml General: No acute distress HEENT: Other (orally intubated) Labs Laboratory Tests Test 02/27/20 07:20 02/27/20 08:20 02/28/20 08:05 Hemoglobin 11.7 g/dL (12.0-15.5) Hematocrit 35.6 % (36.0-47.0) Sodium Level 142 mmol/L (136-145) Potassium Level 3.6 mmol/L (3.5-5.1) Chloride Level 106 mmol/L (98-107) Carbon Dioxide Level 32 mmol/L (21-32) Anion Gap 4 (6-14) Blood Urea Nitrogen 20 mg/dL (7-20) Creatinine 0.5 mg/dL (0.6-1.0) Estimated GFR (Cockcroft-Gault) 120.3 Glucose Level 128 mg/dL (70-99) Calcium Level 7.9 mg/dL (8.5-10.1) O2 Saturation 92 % (92-99) 93 % (92-99) Arterial Blood pH 7.41 (7.35-7.45) 7.48 (7.35-7.45) Arterial Blood pCO2 at Patient Temp 49 mmHg (35-46) 46 mmHg (35-46) Arterial Blood pO2 at Patient Temp 63 mmHg (65-108) 64 mmHg (65-108) Arterial Blood HCO3 31 mmol/L (21-28) 33 mmol/L (21-28) Arterial Blood Base Excess 5 mmol/L (-3-3) 9 mmol/L (-3-3) FiO2 70% vent 70% vent Laboratory Tests Test 02/28/20 08:05 O2 Saturation 93 % (92-99) Arterial Blood pH 7.48 (7.35-7.45) Arterial Blood pCO2 at Patient Temp 46 mmHg (35-46) Arterial Blood pO2 at Patient Temp 64 mmHg (65-108) Arterial Blood HCO3 33 mmol/L (21-28) Arterial Blood Base Excess 9 mmol/L (-3-3) FiO2 70% vent Problem List respiratory failure will remain available for tracheostomy poor candidate currently given elevated FiO2 requirements. Justicifation of Admission Dx: Justifications for Admission: Justification of Admission Dx: Yes Respiratory Failure: Mechanical Ventilation FRANKY DOUGHERTY MD Feb 28, 2020 12:00
[2020-02-28] MEDS: PROPOFOL 100 ML IV PRN (12:39)
--- NOTE | 2020-02-28 16:33 | NUR ---
SS following up with discharge planning. SS reviewed pt chart and discussed with pt RN. Pt is currently on the vent at 60%. COVID19 positive. Not stable. SS will continue to follow for discharge planning.
[2020-02-29] VITALS (24 sets, daily range): BP systolic 91–158; BP diastolic 46–73
--- NOTE | 2020-02-29 07:13 | RAD ---
XR CHEST 1V 02/29/2020 4:46 AM INDICATION: Respiratory failure COMPARISON: 02/27/2020 TECHNIQUE: Portable frontal view of the chest is provided. FINDINGS: The cardiomediastinal silhouette is similar in appearance. Endotracheal tube and nasogastric tube are in similar position. Patchy mixed interstitial and alveolar airspace disease noted throughout the lungs, stable from prior examination. Trace bilateral pleural effusions with adjacent compressive atelectasis versus infiltra te. No pneumothorax. No suspicious osseous abnormality. IMPRESSION: Aeration of the lungs appears similar to the prior examination. Support lines and tubes are in simila r position. Electronically signed by: Candace Bailey MD (02/29/2020 7:10 AM) [id number]
[2020-02-29 07:48] LABS: BASE EXCESS ABG 8 mmol/L (-3-3); HCO3 ABG 33 mmol/L (21-28); PCO2 ABG 48 mmHg (35-46); PO2 ABG 64 mmHg (65-108); SAT O2 ABG 93 % (92-99)
[2020-02-29 07:51] LABS: FIO2 ABG 60
--- NOTE | 2020-02-29 08:28 | PN ---
DATE: 02/29/2020 SUBJECTIVE: The patient continued to be sedated, intubated and mechanically ventilated. Her FiO2 is down to 60%. Apparently, the surgical team did not feel that she is stable enough for the tracheostomy yet. PHYSICAL EXAMINATION: GENERAL: When I examined her, she looked well and was clearly in no apparent respiratory distress. She was pale, but no jaundice, cyanosis or thyromegaly. No jugular venous distention. No lower limb edema. VITAL SIGNS: Her heart rate was 72, blood pressure was 98/55, temperature was 99.1, respiratory rate was 16, and oxygen saturation was 97% on FiO2 of 60%. HEENT: Showed normocephalic, atraumatic. NECK: Supple. HEART: Showed normal first and second heart sounds. No gallop or murmur. CHEST: Clear to auscultation. No crepitation or rhonchi. ABDOMEN: Distended, soft, nontender. NEUROLOGIC: She is heavily sedated. Her intake was 2800, output was 2200. Her most recent hemoglobin and hematocrit are 11.7 and 35.6. LABORATORY DATA: Most recent chemistry showed a serum sodium 142, potassium 3.6, chloride 106, bicarbonate 32, anion gap of 4, BUN 20, creatinine 0.5, estimated GFR 120 mL per minute, her glucose 128 and calcium was 7.9. ASSESSMENT: 1. COVID-19 pneumonia. 2. Acute hypoxic respiratory failure. 3. Acute respiratory distress syndrome. 4. Hypertension, however, the patient is actually borderline hypotensive. I did discontinue her antihypertensive medication. 5. Severe protein-calorie malnutrition. 6. Elevated D-dimer; however, CT angio of the chest was negative for pulmonary emboli. 7. Hypernatremia that has resolved. Her most recent serum sodium is 142 mEq per liter. 8. She has new-onset subcutaneous emphysema and pneumomediastinum. PLAN: To continue mechanical ventilation, wean as tolerated. Continue with IV antibiotic. Continue GI and DVT prophylaxis. Continue to monitor her lab work. Apparently, the surgical team did not feel that the patient is stable enough for tracheostomy yet. SEUN SOSA MD DR: GUERLINE/gabriela JOB#: [id number] / [id number]
[2020-02-29] MEDS: FAMOTIDINE 20 MG/2 ML VIAL IVP SCH (08:33)
[2020-02-29] MEDS: ENOXAPARIN 40 MG/0.4 ML SYRINGE. SQ SCH ×2 (08:33→22:44)
[2020-02-29] MEDS: MIDAZOLAM 100mg/100ml NS BAG 100 ML IV PRN (08:34)
--- NOTE | 2020-02-29 10:52 | PDOC ---
PULMONARY PROGRESS NOTES DATE: 02/29/20 TIME: 10:49 Subjective Pt. is on vent support 60% and PEEP of 7 no clinical change no concerns from nursing Vitals Vital Signs Date Time Temp Pulse Resp B/P (MAP) Pulse Ox O2 Delivery O2 Flow Rate FiO2 02/29/20 08:00 Mechanical Ventilator 02/29/20 06:00 72 16 98/55 (69) 97 02/29/20 04:00 99.1 99.1 Comments Pt. seen during COVID-19 pandemic visual exam preformed, RRR VENT no distress or accessory muscle use no obvious edema or rash Labs Laboratory Tests Test 02/28/20 08:05 02/29/20 07:40 O2 Saturation 93 % (92-99) 93 % (92-99) Arterial Blood pH 7.48 (7.35-7.45) 7.46 (7.35-7.45) Arterial Blood pCO2 at Patient Temp 46 mmHg (35-46) 48 mmHg (35-46) Arterial Blood pO2 at Patient Temp 64 mmHg (65-108) 64 mmHg (65-108) Arterial Blood HCO3 33 mmol/L (21-28) 33 mmol/L (21-28) Arterial Blood Base Excess 9 mmol/L (-3-3) 8 mmol/L (-3-3) FiO2 70% vent 60 Laboratory Tests Test 02/29/20 07:40 O2 Saturation 93 % (92-99) Arterial Blood pH 7.46 (7.35-7.45) Arterial Blood pCO2 at Patient Temp 48 mmHg (35-46) Arterial Blood pO2 at Patient Temp 64 mmHg (65-108) Arterial Blood HCO3 33 mmol/L (21-28) Arterial Blood Base Excess 8 mmol/L (-3-3) FiO2 60 Medications Active Scripts Medications Dose Route/Sig Max Daily Dose Days Date Category Lisinopril 20 Mg Tablet 1 Tab PO DAILY 02/17/20 Reported Norvasc (Amlodipine Besylate) 5 Mg Tablet 1 Tab PO DAILY 02/17/20 Reported Comments CXR 02/27/20 IMPRESSION: Slight interval decrease in diffuse mixed interstitial and alveolar infiltrate and suspected trace pleural effusions. Impression . IMPRESSION: 1. Acute hypoxic respiratory failure secondary to COVID-19 pneumonia/ARDS/acute lung injury--- improving 2. Abnormal CT chest with diffuse and extensive bilateral infiltrates consistent with COVID-19 pneumonia. Cannot exclude superimposed bacterial pneumonia. No evidence of pulmonary embolism. 3. High D-dimer. Commonly seen in patients with COVID-19 pneumonia. We will continue high dose DVT prophylaxis. 4. No significant reported tobacco history. Plan . RECOMMENDATIONS: Continue current vent support Fi02 60% and PEEP 7 Follow CXR/ABG,-- Follow surgery recs for trach placement , not ready yet D/C steroids has completed full 10 day course Zosyn started on 02/16, completed full 10-day course, Levaquin started on 02/18/20, completed full 7-day course, monitor off antibiotics Tube feeding for nutritional support DVT/GI PPX D/W RN and RT message left for daughter Pt. is FULL CODE Critical care time [id number] KYM LOPEZ MD Feb 29, 2020 10:52
[2020-02-29] MEDS: PROPOFOL 100 ML IV PRN (15:08)
[2020-02-29] MEDS: fentaNYL HIGH DOSE PCA 55 ML IV PRN (17:37)
--- NOTE | 2020-02-29 17:52 | PDOC ---
SURGICAL PROGRESS NOTE DATE: 02/29/20 TIME: 17:50 Subjective Pt orally intubated, appears comfortable Vital Signs Vital Signs Date Time Temp Pulse Resp B/P (MAP) Pulse Ox O2 Delivery O2 Flow Rate FiO2 02/29/20 17:37 95 02/29/20 16:36 Ventilator 02/29/20 15:00 73 20 158/73 (101) 02/29/20 12:00 98.9 98.9 I&O Intake and Output 02/29/20 06:59 Intake Total 2467 ml Output Total 1390 ml Balance 1077 ml IV Total 331 ml Tube Feeding 1836 ml Other 300 ml Output Urine Total 1390 ml Gastric Drainage Total 0 ml General: No acute distress HEENT: Other (orally intubated) Labs Laboratory Tests Test 02/28/20 08:05 02/29/20 07:40 O2 Saturation 93 % (92-99) 93 % (92-99) Arterial Blood pH 7.48 (7.35-7.45) 7.46 (7.35-7.45) Arterial Blood pCO2 at Patient Temp 46 mmHg (35-46) 48 mmHg (35-46) Arterial Blood pO2 at Patient Temp 64 mmHg (65-108) 64 mmHg (65-108) Arterial Blood HCO3 33 mmol/L (21-28) 33 mmol/L (21-28) Arterial Blood Base Excess 9 mmol/L (-3-3) 8 mmol/L (-3-3) FiO2 70% vent 60 Laboratory Tests Test 02/29/20 07:40 O2 Saturation 93 % (92-99) Arterial Blood pH 7.46 (7.35-7.45) Arterial Blood pCO2 at Patient Temp 48 mmHg (35-46) Arterial Blood pO2 at Patient Temp 64 mmHg (65-108) Arterial Blood HCO3 33 mmol/L (21-28) Arterial Blood Base Excess 8 mmol/L (-3-3) FiO2 60 Assessment/Plan will remain available for trach Justicifation of Admission Dx: Justifications for Admission: Justification of Admission Dx: Yes Respiratory Failure: Mechanical Ventilation FRANKY DOUGHERTY MD Feb 29, 2020 17:52
[2020-03-01] VITALS (23 sets, daily range): BP systolic 85–144; BP diastolic 42–70
[2020-03-01] MEDS: PROPOFOL 100 ML IV PRN (07:11)
[2020-03-01] MEDS: MIDAZOLAM 100mg/100ml NS BAG 100 ML IV PRN ×2 (07:11→18:47)
[2020-03-01 08:25] LABS: BASE EXCESS ABG 6 mmol/L (-3-3); HCO3 ABG 30 mmol/L (21-28); PCO2 ABG 40 mmHg (35-46); PO2 ABG 61 mmHg (65-108); SAT O2 ABG 92 % (92-99)
[2020-03-01 09:00] LABS: BASO # 0.1 x10^3/uL (0.0-0.2); BASO % 1 % (0-3); EOS # 0.4 x10^3/uL (0.0-0.7); EOS % 3 % (0-3); HEMATOCRIT 32.7 % (36.0-47.0); HEMOGLOBIN 10.9 g/dL (12.0-15.5); LYMPH # 1.9 x10^3/uL (1.0-4.8); LYMPH % 14 % (24-48); MEAN CORPUSCULAR HEMOGLOBIN 29 pg (25-35); MEAN CORPUSCULAR HGB CONC 33 g/dL (31-37); MEAN CORPUSCULAR VOLUME 87 fL (79-100); MONO # 0.6 x10^3/uL (0.0-1.1); MONO % 5 % (0-9); NEUT # 10.5 x10^3/uL (1.8-7.7); NEUT % 78 % (31-73); PLATELET COUNT 248 x10^3/uL (140-400); RED BLOOD COUNT 3.77 x10^6/uL (3.50-5.40); RED CELL DISTRIBUTION WIDTH 15.1 % (11.5-14.5); WHITE BLOOD COUNT 13.6 x10^3/uL (4.0-11.0)
--- NOTE | 2020-03-01 09:01 | PN ---
DATE: 03/01/2020 SUBJECTIVE: The patient is resting, slightly propped up in bed, in no apparent respiratory distress, continued to be sedated, intubated and mechanically ventilated, maintaining her oxygen saturation at 93% on FiO2 of 60%. PHYSICAL EXAMINATION: GENERAL: On examining her, she looked pale. No jaundice, cyanosis or thyromegaly. No jugular venous distention or limb edema. VITAL SIGNS: Her heart rate was 76, blood pressure was 96/49, temperature was 100.1, respiratory rate was 22 and oxygen saturation was 93%. HEENT: Showed normocephalic, atraumatic. NECK: Supple. HEART: Normal first and second heart sounds. No gallop, rub or murmur. CHEST: Clear to auscultation. No crepitation or rhonchi. ABDOMEN: Distended, soft, nontender. NEUROLOGIC: She is heavily sedated. Her intake over the last 24 hours was 2467, output was 1390. LABORATORY DATA: Today's labs are still pending at the time of this dictation. ASSESSMENT: 1. COVID-19 pneumonia. 2. Acute hypoxic respiratory failure. 3. Acute respiratory distress syndrome. 4. Hypertension, however, the patient is actually borderline hypotensive. I did discontinue all her antihypertensive medication. 5. Severe protein-calorie malnutrition. 6. Elevated D-dimer; however, CT angio of the chest was negative for pulmonary emboli. 7. Hypernatremia, has resolved. 8. She has onset subcutaneous emphysema and pneumomediastinum. PLAN: To continue mechanical ventilation, wean as tolerated. Her antibiotic was discontinued a few days ago and she did spike a temperature yesterday and we did order blood and sputum for culture and sensitivity. Meanwhile, we will continue with GI and DVT prophylaxis. SEUN SOSA MD DR: GUERLINE/gabriela JOB#: [id number] / [id number]
[2020-03-01 09:03] LABS: FIO2 ABG 60%+7
[2020-03-01] MEDS: ENOXAPARIN 40 MG/0.4 ML SYRINGE. SQ SCH ×2 (09:04→21:00)
[2020-03-01] MEDS: FAMOTIDINE 20 MG/2 ML VIAL IVP SCH (09:04)
[2020-03-01 09:20] LABS: ALBUMIN 1.4 g/dL (3.4-5.0); ALBUMIN/GLOBULIN RATIO 0.4 (1.0-1.7); ALK PHOS 70 U/L (46-116); ALT (SGPT) 33 U/L (14-59); ANION GAP 6 (6-14); AST (SGOT) 28 U/L (15-37); BLOOD UREA NITROGEN 16 mg/dL (7-20); CALCIUM 7.8 mg/dL (8.5-10.1); CARBON DIOXIDE 31 mmol/L (21-32); CHLORIDE 102 mmol/L (98-107); GLUCOSE 105 mg/dL (70-99); POTASSIUM 4.1 mmol/L (3.5-5.1); SODIUM 139 mmol/L (136-145); TOTAL BILIRUBIN 0.4 mg/dL (0.2-1.0)
[2020-03-01 09:29] LABS: BUN/CREATININE RATIO 80 (6-20); CREATININE < 0.2 mg/dL (0.6-1.0); GFR > 300.0
--- NOTE | 2020-03-01 11:05 | PDOC ---
PULMONARY PROGRESS NOTES DATE: 03/01/20 TIME: 11:05 Subjective Pt. is on vent support 60% and PEEP of 7 no clinical change no concerns from nursing Vitals Vital Signs Date Time Temp Pulse Resp B/P (MAP) Pulse Ox O2 Delivery O2 Flow Rate FiO2 03/01/20 10:00 78 28 137/64 (88) 95 Ventilator 03/01/20 08:00 99.0 99.0 Comments Pt. seen during visual exam preformed, RRR VENT no distress or accessory muscle use no obvious edema or rash Labs Laboratory Tests Test 02/29/20 07:40 03/01/20 08:00 03/01/20 08:05 O2 Saturation 93 % (92-99) 92 % (92-99) Arterial Blood pH 7.46 (7.35-7.45) 7.49 (7.35-7.45) Arterial Blood pCO2 at Patient Temp 48 mmHg (35-46) 40 mmHg (35-46) Arterial Blood pO2 at Patient Temp 64 mmHg (65-108) 61 mmHg (65-108) Arterial Blood HCO3 33 mmol/L (21-28) 30 mmol/L (21-28) Arterial Blood Base Excess 8 mmol/L (-3-3) 6 mmol/L (-3-3) FiO2 60 60%+7 White Blood Count 13.6 x10^3/uL (4.0-11.0) Red Blood Count 3.77 x10^6/uL (3.50-5.40) Hemoglobin 10.9 g/dL (12.0-15.5) Hematocrit 32.7 % (36.0-47.0) Mean Corpuscular Volume 87 fL (79-100) Mean Corpuscular Hemoglobin 29 pg (25-35) Mean Corpuscular Hemoglobin Concent 33 g/dL (31-37) Red Cell Distribution Width 15.1 % (11.5-14.5) Platelet Count 248 x10^3/uL (140-400) Neutrophils (%) (Auto) 78 % (31-73) Lymphocytes (%) (Auto) 14 % (24-48) Monocytes (%) (Auto) 5 % (0-9) Eosinophils (%) (Auto) 3 % (0-3) Basophils (%) (Auto) 1 % (0-3) Neutrophils # (Auto) 10.5 x10^3/uL (1.8-7.7) Lymphocytes # (Auto) 1.9 x10^3/uL (1.0-4.8) Monocytes # (Auto) 0.6 x10^3/uL (0.0-1.1) Eosinophils # (Auto) 0.4 x10^3/uL (0.0-0.7) Basophils # (Auto) 0.1 x10^3/uL (0.0-0.2) Sodium Level 139 mmol/L (136-145) Potassium Level 4.1 mmol/L (3.5-5.1) Chloride Level 102 mmol/L (98-107) Carbon Dioxide Level 31 mmol/L (21-32) Anion Gap 6 (6-14) Blood Urea Nitrogen 16 mg/dL (7-20) Creatinine < 0.2 mg/dL (0.6-1.0) Estimated GFR (Cockcroft-Gault) > 300.0 BUN/Creatinine Ratio 80 (6-20) Glucose Level 105 mg/dL (70-99) Calcium Level 7.8 mg/dL (8.5-10.1) Total Bilirubin 0.4 mg/dL (0.2-1.0) Aspartate Amino Transf (AST/SGOT) 28 U/L (15-37) Alanine Aminotransferase (ALT/SGPT) 33 U/L (14-59) Alkaline Phosphatase 70 U/L (46-116) Total Protein 5.0 g/dL (6.4-8.2) Albumin 1.4 g/dL (3.4-5.0) Albumin/Globulin Ratio 0.4 (1.0-1.7) Laboratory Tests Test 03/01/20 08:00 03/01/20 08:05 O2 Saturation 92 % (92-99) Arterial Blood pH 7.49 (7.35-7.45) Arterial Blood pCO2 at Patient Temp 40 mmHg (35-46) Arterial Blood pO2 at Patient Temp 61 mmHg (65-108) Arterial Blood HCO3 30 mmol/L (21-28) Arterial Blood Base Excess 6 mmol/L (-3-3) FiO2 60%+7 White Blood Count 13.6 x10^3/uL (4.0-11.0) Red Blood Count 3.77 x10^6/uL (3.50-5.40) Hemoglobin 10.9 g/dL (12.0-15.5) Hematocrit 32.7 % (36.0-47.0) Mean Corpuscular Volume 87 fL (79-100) Mean Corpuscular Hemoglobin 29 pg (25-35) Mean Corpuscular Hemoglobin Concent 33 g/dL (31-37) Red Cell Distribution Width 15.1 % (11.5-14.5) Platelet Count 248 x10^3/uL (140-400) Neutrophils (%) (Auto) 78 % (31-73) Lymphocytes (%) (Auto) 14 % (24-48) Monocytes (%) (Auto) 5 % (0-9) Eosinophils (%) (Auto) 3 % (0-3) Basophils (%) (Auto) 1 % (0-3) Neutrophils # (Auto) 10.5 x10^3/uL (1.8-7.7) Lymphocytes # (Auto) 1.9 x10^3/uL (1.0-4.8) Monocytes # (Auto) 0.6 x10^3/uL (0.0-1.1) Eosinophils # (Auto) 0.4 x10^3/uL (0.0-0.7) Basophils # (Auto) 0.1 x10^3/uL (0.0-0.2) Sodium Level 139 mmol/L (136-145) Potassium Level 4.1 mmol/L (3.5-5.1) Chloride Level 102 mmol/L (98-107) Carbon Dioxide Level 31 mmol/L (21-32) Anion Gap 6 (6-14) Blood Urea Nitrogen 16 mg/dL (7-20) Creatinine < 0.2 mg/dL (0.6-1.0) Estimated GFR (Cockcroft-Gault) > 300.0 BUN/Creatinine Ratio 80 (6-20) Glucose Level 105 mg/dL (70-99) Calcium Level 7.8 mg/dL (8.5-10.1) Total Bilirubin 0.4 mg/dL (0.2-1.0) Aspartate Amino Transf (AST/SGOT) 28 U/L (15-37) Alanine Aminotransferase (ALT/SGPT) 33 U/L (14-59) Alkaline Phosphatase 70 U/L (46-116) Total Protein 5.0 g/dL (6.4-8.2) Albumin 1.4 g/dL (3.4-5.0) Albumin/Globulin Ratio 0.4 (1.0-1.7) Medications Active Scripts Medications Dose Route/Sig Max Daily Dose Days Date Category Lisinopril 20 Mg Tablet 1 Tab PO DAILY 02/17/20 Reported Norvasc (Amlodipine Besylate) 5 Mg Tablet 1 Tab PO DAILY 02/17/20 Reported Comments CXR 02/27/20 IMPRESSION: Slight interval decrease in diffuse mixed interstitial and alveolar infiltrate and suspected trace pleural effusions. Impression . IMPRESSION: 1. Acute hypoxic respiratory failure secondary to COVID-19 pneumonia/ARDS/acute lung injury--- improving 2. Abnormal CT chest with diffuse and extensive bilateral infiltrates consistent with COVID-19 pneumonia. Cannot exclude superimposed bacterial pneumonia. No evidence of pulmonary embolism. 3. High D-dimer. Commonly seen in patients with COVID-19 pneumonia. We will continue high dose DVT prophylaxis. 4. No significant reported tobacco history. Plan . RECOMMENDATIONS: Continue current vent support Fi02 60% and PEEP 7 Follow CXR/ABG,-- Follow surgery recs for trach placement , not ready yet D/C steroids has completed full 10 day course Zosyn started on 02/16, completed full 10-day course, Levaquin started on 02/18/20, completed full 7-day course, monitor off antibiotics Tube feeding for nutritional support DVT/GI PPX D/W RN and RT Pt. is FULL CODE KYM LOPEZ MD Mar 01, 2020 11:05
[2020-03-01] MEDS: MICONAZOLE NITRATE 2% TOPICAL CREAM 30GM TUBE. TP SCH (22:02)
[2020-03-02] VITALS (23 sets, daily range): BP systolic 85–163; BP diastolic 43–80
[2020-03-02] MEDS: fentaNYL HIGH DOSE PCA 55 ML IV PRN (01:42)
[2020-03-02] MEDS: PROPOFOL 100 ML IV PRN ×2 (01:42→17:35)
[2020-03-02] MEDS: MIDAZOLAM 100mg/100ml NS BAG 100 ML IV PRN ×2 (04:06→15:37)
--- NOTE | 2020-03-02 08:34 | RAD ---
EXAM: Chest, single view. HISTORY: Respiratory failure. COMPARISON: 02/29/2020 FINDINGS: A frontal view of the chest obtained. There is stable diffuse mixed interstitial alveolar i nfiltrate with small pleural effusions. There is an endotracheal tube within the mid trachea. There i s a nasogastric tube within the stomach. There is a right PICC with the tip in the superior vena cava . IMPRESSION: Stable diffuse infiltrate and small pleural effusions. Stable support lines and tubes. Electronically signed by: Chantal Galeas MD (03/02/2020 8:26 AM) [id number]
[2020-03-02 08:36] LABS: BASE EXCESS COOX 7 mmol/L (-3-3); HCO3 COOX 32 mmol/L (21-28); METHEMOGLOBIN 0.2 % (0.0-1.9); OXYHEMOGLOBIN 89.9 %; PCO2 COOX 50 mmHg (35-46); PO2 COOX 60 mmHg (65-108); SAT O2 COOX 90 % (92-99)
[2020-03-02] MEDS: ENOXAPARIN 40 MG/0.4 ML SYRINGE. SQ SCH ×2 (08:36→20:16)
[2020-03-02] MEDS: FAMOTIDINE 20 MG/2 ML VIAL IVP SCH (08:36)
[2020-03-02] MEDS: MICONAZOLE NITRATE 2% TOPICAL CREAM 30GM TUBE. TP SCH ×2 (08:37→20:16)
--- NOTE | 2020-03-02 09:10 | PDOC ---
PULMONARY PROGRESS NOTES DATE: 03/02/20 TIME: 09:08 Subjective Pt. is on vent support 60% and PEEP of 7 no clinical change low grade fever overnight no concerns from nursing Vitals Vital Signs Date Time Temp Pulse Resp B/P (MAP) Pulse Ox O2 Delivery O2 Flow Rate FiO2 03/02/20 08:00 92 Ventilator 03/02/20 07:00 70 24 99/53 (68) 03/02/20 04:00 99.2 99.2 Comments Pt. seen during pandemic visual exam preformed, RRR VENT no distress or accessory muscle use no obvious edema or rash Labs Laboratory Tests Test 02/29/20 22:00 03/01/20 08:00 03/01/20 08:05 03/02/20 08:30 Clostridium difficile Toxin (PCR) Negative (NEGATIVE) O2 Saturation 92 % (92-99) 90 % (92-99) Arterial Blood pH 7.49 (7.35-7.45) 7.42 (7.35-7.45) Arterial Blood pCO2 at Patient Temp 40 mmHg (35-46) 50 mmHg (35-46) Arterial Blood pO2 at Patient Temp 61 mmHg (65-108) 60 mmHg (65-108) Arterial Blood HCO3 30 mmol/L (21-28) 32 mmol/L (21-28) Arterial Blood Base Excess 6 mmol/L (-3-3) 7 mmol/L (-3-3) FiO2 60%+7 40% White Blood Count 13.6 x10^3/uL (4.0-11.0) Red Blood Count 3.77 x10^6/uL (3.50-5.40) Hemoglobin 10.9 g/dL (12.0-15.5) Hematocrit 32.7 % (36.0-47.0) Mean Corpuscular Volume 87 fL (79-100) Mean Corpuscular Hemoglobin 29 pg (25-35) Mean Corpuscular Hemoglobin Concent 33 g/dL (31-37) Red Cell Distribution Width 15.1 % (11.5-14.5) Platelet Count 248 x10^3/uL (140-400) Neutrophils (%) (Auto) 78 % (31-73) Lymphocytes (%) (Auto) 14 % (24-48) Monocytes (%) (Auto) 5 % (0-9) Eosinophils (%) (Auto) 3 % (0-3) Basophils (%) (Auto) 1 % (0-3) Neutrophils # (Auto) 10.5 x10^3/uL (1.8-7.7) Lymphocytes # (Auto) 1.9 x10^3/uL (1.0-4.8) Monocytes # (Auto) 0.6 x10^3/uL (0.0-1.1) Eosinophils # (Auto) 0.4 x10^3/uL (0.0-0.7) Basophils # (Auto) 0.1 x10^3/uL (0.0-0.2) Sodium Level 139 mmol/L (136-145) Potassium Level 4.1 mmol/L (3.5-5.1) Chloride Level 102 mmol/L (98-107) Carbon Dioxide Level 31 mmol/L (21-32) Anion Gap 6 (6-14) Blood Urea Nitrogen 16 mg/dL (7-20) Creatinine < 0.2 mg/dL (0.6-1.0) Estimated GFR (Cockcroft-Gault) > 300.0 BUN/Creatinine Ratio 80 (6-20) Glucose Level 105 mg/dL (70-99) Calcium Level 7.8 mg/dL (8.5-10.1) Total Bilirubin 0.4 mg/dL (0.2-1.0) Aspartate Amino Transf (AST/SGOT) 28 U/L (15-37) Alanine Aminotransferase (ALT/SGPT) 33 U/L (14-59) Alkaline Phosphatase 70 U/L (46-116) Total Protein 5.0 g/dL (6.4-8.2) Albumin 1.4 g/dL (3.4-5.0) Albumin/Globulin Ratio 0.4 (1.0-1.7) Oxyhemoglobin 89.9 % Methemoglobin 0.2 % (0.0-1.9) Carbon Monoxide, Quantitative 0.3 % (0.0-1.9) Laboratory Tests Test 03/02/20 08:30 O2 Saturation 90 % (92-99) Arterial Blood pH 7.42 (7.35-7.45) Arterial Blood pCO2 at Patient Temp 50 mmHg (35-46) Arterial Blood pO2 at Patient Temp 60 mmHg (65-108) Arterial Blood HCO3 32 mmol/L (21-28) Arterial Blood Base Excess 7 mmol/L (-3-3) Oxyhemoglobin 89.9 % Methemoglobin 0.2 % (0.0-1.9) Carbon Monoxide, Quantitative 0.3 % (0.0-1.9) FiO2 40% Medications Active Scripts Medications Dose Route/Sig Max Daily Dose Days Date Category Lisinopril 20 Mg Tablet 1 Tab PO DAILY 02/17/20 Reported Norvasc (Amlodipine Besylate) 5 Mg Tablet 1 Tab PO DAILY 02/17/20 Reported Comments CXR 03/02/20 IMPRESSION: Stable diffuse infiltrate and small pleural effusions. Stable support lines and tubes.. Impression . IMPRESSION: 1. Acute hypoxic respiratory failure secondary to COVID-19 pneumonia/ARDS/acute lung injury--- improving 2. Abnormal CT chest with diffuse and extensive bilateral infiltrates consistent with COVID-19 pneumonia. Cannot exclude superimposed bacterial pneumonia. No evidence of pulmonary embolism. 3. High D-dimer. Commonly seen in patients with COVID-19 pneumonia. We will continue high dose DVT prophylaxis. 4. No significant reported tobacco history. Plan . RECOMMENDATIONS: Continue current vent support Fi02 60% and PEEP 7 Follow CXR/ABG,-- no changes Follow surgery recs for trach placement , not ready yet D/C steroids has completed full 10 day course Zosyn started on 02/16, completed full 10-day course, Levaquin started on 02/18/20, completed full 7-day course, monitor off antibiotics monitor WBC, off ABX Tube feeding for nutritional support DVT/GI PPX D/W RN and RT Pt. is FULL CODE Critical care time [id number] KYM LOPEZ MD Mar 02, 2020 09:10
--- NOTE | 2020-03-02 09:43 | PN ---
DATE: 03/02/2020 SUBJECTIVE: The patient is resting, slightly propped up in bed, in no apparent distress. She continued to be heavily sedated, intubated and mechanically ventilated. She is maintaining her oxygen saturation at 92% on FiO2 of 60%. PHYSICAL EXAMINATION: GENERAL: On examining her, she looked pale, but not jaundiced or cyanosed. No lymphadenopathy, no thyromegaly. No jugular venous distention. No limb edema. VITAL SIGNS: Her heart rate was 70, blood pressure was 99/53, temperature was 99.2, 24 and oxygen saturation was 92% on FiO2 of 60%. HEAD, EYES, EARS, NOSE, AND THROAT: Showed normocephalic, atraumatic. NECK: Supple. HEART: Showed normal first and second heart sounds. No gallop or murmur. CHEST: Clear to auscultation. No crepitation or rhonchi. ABDOMEN: Distended, soft, nontender. NEUROLOGIC: She is heavily sedated. Her intake over the last 24 hours was 1600, output was 1825. LABORATORY DATA: Her lab work as of yesterday showed a white cell count of 13,600; hemoglobin 11; hematocrit 33; MCV 87; and platelet count 248,000. Her chemistry showed a serum sodium 139, potassium 4.1, chloride 102, bicarbonate 31, anion gap of 6, BUN 16, creatinine 0.2, estimated GFR more than 300 mL per minute. Her glucose 105, calcium was 7.8. Total bilirubin, AST, ALT, alkaline phosphatase were normal. Total protein 5, albumin was 1.4. Her blood gases as of yesterday showed a pH of 7.49, pCO2 of 40, pO2 of 61, bicarbonate was 30 and oxygen saturation was 92% on FiO2 of 60%. Her sputum and blood cultures are so far negative. Her chest x-ray as of yesterday showed that the cardiomediastinal silhouette is similar in appearance. Endotracheal tube and nasogastric tube are in similar position. Patchy mixed interstitial and alveolar airspace disease noted throughout the lung, stable from prior exam, trace bilateral pleural effusion with adjacent compressive atelectasis versus infiltrate, no pneumothorax. ASSESSMENT: 1. COVID-19 pneumonia. 2. Acute hypoxic respiratory failure. 3. Acute respiratory distress syndrome. 4. Hypertension, however, the patient is actually borderline hypotensive. I did discontinue all her antihypertensive medication. 5. Severe protein-calorie malnutrition. Her serum albumin is only 1.9 g/dL. 6. Elevated D-dimer, however, CT scan and CT angio of the chest was negative for any pulmonary emboli. 7. Hypernatremia, has resolved. 8. She has subcutaneous emphysema and pneumothorax. PLAN: Is to continue mechanical ventilation, wean as tolerated. All her antibiotics were discontinued. Continue with DVT and GI prophylaxis. Continue nutritional support. SEUN SOSA MD DR: GUERLINE/gabriela JOB#: [id number] / [id number]
--- NOTE | 2020-03-02 12:35 | PDOC ---
SURGICAL PROGRESS NOTE DATE: 03/02/20 TIME: 12:33 Subjective d/w nursing unchanged vent setting Vital Signs Vital Signs Date Time Temp Pulse Resp B/P (MAP) Pulse Ox O2 Delivery O2 Flow Rate FiO2 03/02/20 12:00 Mechanical Ventilator 03/02/20 12:00 99.3 77 21 90/43 (59) 93 99.3 I&O Intake and Output 03/02/20 07:00 Intake Total 3320 ml Output Total 1735 ml Balance 1585 ml IV Total 398 ml Tube Feeding 2022 ml Other 900 ml Output Urine Total 1380 ml Stool Total 25 ml Gastric Drainage Total 200 ml Oral Regurgitation 130 ml General: Other (sedated ) HEENT: Other (vent) Labs Laboratory Tests Test 02/29/20 22:00 03/01/20 08:00 03/01/20 08:05 03/02/20 08:30 Clostridium difficile Toxin (PCR) Negative (NEGATIVE) O2 Saturation 92 % (92-99) 90 % (92-99) Arterial Blood pH 7.49 (7.35-7.45) 7.42 (7.35-7.45) Arterial Blood pCO2 at Patient Temp 40 mmHg (35-46) 50 mmHg (35-46) Arterial Blood pO2 at Patient Temp 61 mmHg (65-108) 60 mmHg (65-108) Arterial Blood HCO3 30 mmol/L (21-28) 32 mmol/L (21-28) Arterial Blood Base Excess 6 mmol/L (-3-3) 7 mmol/L (-3-3) FiO2 60%+7 60% White Blood Count 13.6 x10^3/uL (4.0-11.0) Red Blood Count 3.77 x10^6/uL (3.50-5.40) Hemoglobin 10.9 g/dL (12.0-15.5) Hematocrit 32.7 % (36.0-47.0) Mean Corpuscular Volume 87 fL (79-100) Mean Corpuscular Hemoglobin 29 pg (25-35) Mean Corpuscular Hemoglobin Concent 33 g/dL (31-37) Red Cell Distribution Width 15.1 % (11.5-14.5) Platelet Count 248 x10^3/uL (140-400) Neutrophils (%) (Auto) 78 % (31-73) Lymphocytes (%) (Auto) 14 % (24-48) Monocytes (%) (Auto) 5 % (0-9) Eosinophils (%) (Auto) 3 % (0-3) Basophils (%) (Auto) 1 % (0-3) Neutrophils # (Auto) 10.5 x10^3/uL (1.8-7.7) Lymphocytes # (Auto) 1.9 x10^3/uL (1.0-4.8) Monocytes # (Auto) 0.6 x10^3/uL (0.0-1.1) Eosinophils # (Auto) 0.4 x10^3/uL (0.0-0.7) Basophils # (Auto) 0.1 x10^3/uL (0.0-0.2) Sodium Level 139 mmol/L (136-145) Potassium Level 4.1 mmol/L (3.5-5.1) Chloride Level 102 mmol/L (98-107) Carbon Dioxide Level 31 mmol/L (21-32) Anion Gap 6 (6-14) Blood Urea Nitrogen 16 mg/dL (7-20) Creatinine < 0.2 mg/dL (0.6-1.0) Estimated GFR (Cockcroft-Gault) > 300.0 BUN/Creatinine Ratio 80 (6-20) Glucose Level 105 mg/dL (70-99) Calcium Level 7.8 mg/dL (8.5-10.1) Total Bilirubin 0.4 mg/dL (0.2-1.0) Aspartate Amino Transf (AST/SGOT) 28 U/L (15-37) Alanine Aminotransferase (ALT/SGPT) 33 U/L (14-59) Alkaline Phosphatase 70 U/L (46-116) Total Protein 5.0 g/dL (6.4-8.2) Albumin 1.4 g/dL (3.4-5.0) Albumin/Globulin Ratio 0.4 (1.0-1.7) Oxyhemoglobin 89.9 % Methemoglobin 0.2 % (0.0-1.9) Carbon Monoxide, Quantitative 0.3 % (0.0-1.9) Laboratory Tests Test 03/02/20 08:30 O2 Saturation 90 % (92-99) Arterial Blood pH 7.42 (7.35-7.45) Arterial Blood pCO2 at Patient Temp 50 mmHg (35-46) Arterial Blood pO2 at Patient Temp 60 mmHg (65-108) Arterial Blood HCO3 32 mmol/L (21-28) Arterial Blood Base Excess 7 mmol/L (-3-3) Oxyhemoglobin 89.9 % Methemoglobin 0.2 % (0.0-1.9) Carbon Monoxide, Quantitative 0.3 % (0.0-1.9) FiO2 60% Assessment/Plan consider trach next week Justicifation of Admission Dx: Justifications for Admission: Justification of Admission Dx: Yes Respiratory Failure: Mechanical Ventilation [employer] Mar 02, 2020 12:35
[2020-03-03] VITALS (25 sets, daily range): BP systolic 91–151; BP diastolic 48–92
[2020-03-03] MEDS: MIDAZOLAM 100mg/100ml NS BAG 100 ML IV PRN ×2 (01:05→12:26)
[2020-03-03] MEDS: PROPOFOL 100 ML IV PRN ×2 (05:52→16:33)
[2020-03-03 06:28] LABS: CALCIUM 8.1 mg/dL (8.5-10.1); CREATININE 0.4 mg/dL (0.6-1.0); GFR 155.6; POTASSIUM 4.1 mmol/L (3.5-5.1)
[2020-03-03 07:34] LABS: HEMATOCRIT 30.1 % (36.0-47.0); RED BLOOD COUNT 3.4 x10^6/uL (3.50-5.40); RED CELL DISTRIBUTION WIDTH 14.3 % (11.5-14.5); WHITE BLOOD COUNT 10.6 x10^3/uL (4.0-11.0)
[2020-03-03] MEDS: FAMOTIDINE 20 MG/2 ML VIAL IVP SCH (08:14)
[2020-03-03] MEDS: ENOXAPARIN 40 MG/0.4 ML SYRINGE. SQ SCH ×2 (08:14→22:01)
[2020-03-03 08:43] LABS: BASE EXCESS ABG 5 mmol/L (-3-3); HCO3 ABG 31 mmol/L (21-28); PCO2 ABG 49 mmHg (35-46); PO2 ABG 51 mmHg (65-108); SAT O2 ABG 86 % (92-99)
[2020-03-03] MEDS: MICONAZOLE NITRATE 2% TOPICAL CREAM 30GM TUBE. TP SCH ×2 (09:00→21:00)
[2020-03-03 09:05] LABS: FIO2 ABG 65/VENT
--- NOTE | 2020-03-03 09:34 | PDOC ---
PULMONARY PROGRESS NOTES DATE: 03/03/20 TIME: 09:32 Subjective Pt. is on vent support 60% and PEEP of 7 hypoxia overnight low grade fever overnight no concerns from nursing Vitals Vital Signs Date Time Temp Pulse Resp B/P (MAP) Pulse Ox O2 Delivery O2 Flow Rate FiO2 03/03/20 09:00 81 24 109/60 (76) 93 Ventilator 03/03/20 08:00 99.3 99.3 Comments Pt. seen during visual exam preformed, RRR VENT no distress or accessory muscle use no obvious edema or rash Labs Laboratory Tests Test 03/02/20 08:30 03/03/20 06:00 03/03/20 07:45 O2 Saturation 90 % (92-99) 86 % (92-99) Arterial Blood pH 7.42 (7.35-7.45) 7.42 (7.35-7.45) Arterial Blood pCO2 at Patient Temp 50 mmHg (35-46) 49 mmHg (35-46) Arterial Blood pO2 at Patient Temp 60 mmHg (65-108) 51 mmHg (65-108) Arterial Blood HCO3 32 mmol/L (21-28) 31 mmol/L (21-28) Arterial Blood Base Excess 7 mmol/L (-3-3) 5 mmol/L (-3-3) Oxyhemoglobin 89.9 % Methemoglobin 0.2 % (0.0-1.9) Carbon Monoxide, Quantitative 0.3 % (0.0-1.9) FiO2 60% 65/vent White Blood Count 10.6 x10^3/uL (4.0-11.0) Red Blood Count 3.40 x10^6/uL (3.50-5.40) Hemoglobin 10.0 g/dL (12.0-15.5) Hematocrit 30.1 % (36.0-47.0) Mean Corpuscular Volume 89 fL (79-100) Mean Corpuscular Hemoglobin 29 pg (25-35) Mean Corpuscular Hemoglobin Concent 33 g/dL (31-37) Red Cell Distribution Width 14.3 % (11.5-14.5) Platelet Count 239 x10^3/uL (140-400) Sodium Level 137 mmol/L (136-145) Potassium Level 4.1 mmol/L (3.5-5.1) Chloride Level 104 mmol/L (98-107) Carbon Dioxide Level 32 mmol/L (21-32) Anion Gap 1 (6-14) Blood Urea Nitrogen 14 mg/dL (7-20) Creatinine 0.4 mg/dL (0.6-1.0) Estimated GFR (Cockcroft-Gault) 155.6 Glucose Level 112 mg/dL (70-99) Calcium Level 8.1 mg/dL (8.5-10.1) Laboratory Tests Test 03/03/20 06:00 03/03/20 07:45 White Blood Count 10.6 x10^3/uL (4.0-11.0) Red Blood Count 3.40 x10^6/uL (3.50-5.40) Hemoglobin 10.0 g/dL (12.0-15.5) Hematocrit 30.1 % (36.0-47.0) Mean Corpuscular Volume 89 fL (79-100) Mean Corpuscular Hemoglobin 29 pg (25-35) Mean Corpuscular Hemoglobin Concent 33 g/dL (31-37) Red Cell Distribution Width 14.3 % (11.5-14.5) Platelet Count 239 x10^3/uL (140-400) Sodium Level 137 mmol/L (136-145) Potassium Level 4.1 mmol/L (3.5-5.1) Chloride Level 104 mmol/L (98-107) Carbon Dioxide Level 32 mmol/L (21-32) Anion Gap 1 (6-14) Blood Urea Nitrogen 14 mg/dL (7-20) Creatinine 0.4 mg/dL (0.6-1.0) Estimated GFR (Cockcroft-Gault) 155.6 Glucose Level 112 mg/dL (70-99) Calcium Level 8.1 mg/dL (8.5-10.1) O2 Saturation 86 % (92-99) Arterial Blood pH 7.42 (7.35-7.45) Arterial Blood pCO2 at Patient Temp 49 mmHg (35-46) Arterial Blood pO2 at Patient Temp 51 mmHg (65-108) Arterial Blood HCO3 31 mmol/L (21-28) Arterial Blood Base Excess 5 mmol/L (-3-3) FiO2 65/vent Medications Active Scripts Medications Dose Route/Sig Max Daily Dose Days Date Category Lisinopril 20 Mg Tablet 1 Tab PO DAILY 02/17/20 Reported Norvasc (Amlodipine Besylate) 5 Mg Tablet 1 Tab PO DAILY 02/17/20 Reported Comments CXR 03/02/20 IMPRESSION: Stable diffuse infiltrate and small pleural effusions. Stable agee pport lines and tubes.. Impression . IMPRESSION: 1. Acute hypoxic respiratory failure secondary to COVID-19 pneumonia/ARDS/acute lung injury--- improving 2. Abnormal CT chest with diffuse and extensive bilateral infiltrates consistent with COVID-19 pneumonia. Cannot exclude superimposed bacterial pneumonia. No evidence of pulmonary embolism. 3. High D-dimer. Commonly seen in patients with COVID-19 pneumonia. We will continue high dose DVT prophylaxis. 4. No significant reported tobacco history. Plan . RECOMMENDATIONS: Continue current vent support Fi02 60% and PEEP 7 Follow CXR/ABG,-- increase Fi02 to 70% Follow surgery recs for trach placement , not ready yet D/C steroids has completed full 10 day course Zosyn started on 02/16, completed full 10-day course, Levaquin started on 02/18/20, completed full 7-day course, monitor off antibiotics Tube feeding for nutritional support DVT/GI PPX D/W RN and RT Pt. is FULL CODE Critical care time 0730-0800AM KYM LOPEZ MD Mar 03, 2020 09:33
--- NOTE | 2020-03-03 10:18 | PN ---
DATE: 03/03/2020 SUBJECTIVE: The patient continued to be sedated, intubated. Her FiO2 was increased to 65%. OBJECTIVE: GENERAL: When I examined her, she looked pale, not jaundiced, cyanosis or thyromegaly. No jugular venous distention. No lower limb edema. VITAL SIGNS: Her heart rate was 81, blood pressure was 109/60, temperature of 99.3, respiratory rate was 24, and oxygen saturation was 93% on FiO2 65%. HEAD, EYES, EARS, NOSE AND THROAT: Normocephalic, atraumatic. NECK: Supple. HEART: Showed normal first and second heart sounds. No gallop or murmur. CHEST: Shows central trachea, equal bilateral chest expansion, air entry, vesicular sounds. No crepitation or rhonchi. ABDOMEN: Distended, soft, nontender. No guarding or rigidity. No organomegaly. All hernial orifice intact. Bowel sounds normal. NEUROLOGIC: She is heavily sedated. INPUT AND OUTPUT: Her intake is 2400, output was 1330. LABORATORY AND DIAGNOSTIC DATA: Her white cell count was 10,600, hemoglobin 10, hematocrit 30, MCV 89 and platelet count 239,000. Serum sodium was 137, potassium 4.1, chloride 104, bicarbonate 32, anion gap of 1, BUN 14, creatinine 0.4, estimated GFR was 155 mL per minute, her glucose 112, calcium was 8.1. Her blood gas this morning showed a pH of 7.42, pCO2 of 49, pO2 of 51, bicarbonate 31 and oxygen saturation was 86% on FiO2 65%. ASSESSMENT: 1. COVID-19 pneumonia. 2. Acute hypoxic respiratory failure. 3. Acute respiratory distress syndrome. 4. Hypertension, however, the patient is actually borderline hypotensive and her antihypertensive medication was discontinued. 5. Severe protein-calorie malnutrition, her serum albumin is only 1.9 g/dL. 6. Elevated D-dimer; however, CT scan of the chest with PE protocol was negative for pulmonary emboli. 7. Hypernatremia, resolved. 8. She did have subcutaneous emphysema and pneumomediastinum. 9. The patient seems to be somewhat worsening. PLAN: To continue mechanical ventilation, wean as tolerated. All her antibiotics were discontinued. Continue with DVT and GI prophylaxis. Continue nutritional support. Continue with sedation. SEUN SOSA MD DR: Ben JOB#: [id number] / [id number]
[2020-03-03] MEDS: fentaNYL HIGH DOSE PCA 55 ML IV PRN (12:29)
[2020-03-03] MEDS: VECURONIUM BOLUS 10 MG VIAL. IV PRN (14:50)
[2020-03-04] VITALS (24 sets, daily range): BP systolic 86–143; BP diastolic 46–79
[2020-03-04] MEDS: MIDAZOLAM 100mg/100ml NS BAG 100 ML IV PRN ×2 (02:05→12:10)
[2020-03-04] MEDS: PROPOFOL 100 ML IV PRN ×3 (05:34→17:28)
[2020-03-04] MEDS: ENOXAPARIN 40 MG/0.4 ML SYRINGE. SQ SCH ×2 (07:19→20:37)
[2020-03-04] MEDS: FAMOTIDINE 20 MG/2 ML VIAL IVP SCH (07:19)
[2020-03-04 08:17] LABS: BASE EXCESS ABG 6 mmol/L (-3-3); HCO3 ABG 32 mmol/L (21-28); PCO2 ABG 54 mmHg (35-46); PO2 ABG 63 mmHg (65-108); SAT O2 ABG 91 % (92-99)
[2020-03-04 08:22] LABS: FIO2 ABG 70/VENT
[2020-03-04] MEDS: VECURONIUM BOLUS 10 MG VIAL. IV PRN ×2 (08:29→20:08)
[2020-03-04] MEDS: MICONAZOLE NITRATE 2% TOPICAL CREAM 30GM TUBE. TP SCH ×2 (08:57→20:37)
--- NOTE | 2020-03-04 09:32 | PN ---
DATE: 03/04/2020 SUBJECTIVE: The patient is resting, slightly propped up in bed, in no apparent distress. She is sedated, mechanically ventilated. Her oxygen requirement has increased. Now she is on FiO2 of 70%, maintaining her oxygen saturation at 95%. PHYSICAL EXAMINATION: GENERAL: On examining her, she looked pale. No jaundice, cyanosis, or thyromegaly. No jugular venous distension. No limb edema. VITAL SIGNS: Her heart rate was 95, blood pressure was 143/79, temperature was 99.4, respiratory rate was 24, and oxygen saturation was 95% on FiO2 of 70%. HEENT: Showed normocephalic, atraumatic. NECK: Supple. HEART: Showed normal first and second heart sounds. No gallop or murmur. CHEST: Clear to auscultation. No crepitation or rhonchi. ABDOMEN: Distended, soft, nontender. NEUROLOGIC: She is heavily sedated. Her intake was 2434, output was 1330. LABORATORY DATA: Her blood gases this morning showed a pH of 7.39, pCO2 of 54, pO2 of 63, bicarbonate 31, and oxygen saturation was 91% on FiO2 of 70%. As of yesterday, her white cell count of 10,600, hemoglobin 10, hematocrit 30, MCV 89 and platelet count 239,000. Chemistry showed a serum sodium 137, potassium 4.1, chloride 104, bicarbonate 32, anion gap of 11, BUN 14, creatinine 0.4, estimated GFR was 155 mL per minute. Her glucose 112, calcium was 8.1. ASSESSMENT: 1. COVID-19 pneumonia. 2. Acute hypoxic respiratory failure. 3. Acute respiratory distress syndrome. 4. Hypertension, however, the patient is actually borderline hypotensive and her antihypertensive medications were discontinued. 5. Severe protein-calorie malnutrition, serum albumin is only 1.9 g/dL. 6. Elevated D-dimer with negative CT angio for pulmonary emboli. 7. Hypernatremia, resolved. 8. She has subcutaneous emphysema, pneumomediastinum has resolved. PLAN: To continue with mechanical ventilation, wean as tolerated. Continue to monitor her off of all antibiotics. Continue with DVT and GI prophylaxis. Continue nutritional support. SEUN SOSA MD DR: GUERLINE/gabriela JOB#: [id number] / [id number]
--- NOTE | 2020-03-04 10:03 | PDOC ---
PULMONARY PROGRESS NOTES DATE: 03/04/20 TIME: 10:01 Subjective Pt. is on vent support 70% and PEEP of 7 low grade fever overnight No clinical improvement no concerns from nursing Vitals Vital Signs Date Time Temp Pulse Resp B/P (MAP) Pulse Ox O2 Delivery O2 Flow Rate FiO2 03/04/20 09:00 100 16 132/66 (88) 93 Ventilator 03/04/20 08:00 99.4 99.4 Comments Pt. seen during pandemic visual exam preformed, RRR VENT/ intubated no distress or accessory muscle use no obvious edema or rash Labs Laboratory Tests Test 03/03/20 06:00 03/03/20 07:45 03/04/20 08:00 White Blood Count 10.6 x10^3/uL (4.0-11.0) Red Blood Count 3.40 x10^6/uL (3.50-5.40) Hemoglobin 10.0 g/dL (12.0-15.5) Hematocrit 30.1 % (36.0-47.0) Mean Corpuscular Volume 89 fL (79-100) Mean Corpuscular Hemoglobin 29 pg (25-35) Mean Corpuscular Hemoglobin Concent 33 g/dL (31-37) Red Cell Distribution Width 14.3 % (11.5-14.5) Platelet Count 239 x10^3/uL (140-400) Sodium Level 137 mmol/L (136-145) Potassium Level 4.1 mmol/L (3.5-5.1) Chloride Level 104 mmol/L (98-107) Carbon Dioxide Level 32 mmol/L (21-32) Anion Gap 1 (6-14) Blood Urea Nitrogen 14 mg/dL (7-20) Creatinine 0.4 mg/dL (0.6-1.0) Estimated GFR (Cockcroft-Gault) 155.6 Glucose Level 112 mg/dL (70-99) Calcium Level 8.1 mg/dL (8.5-10.1) O2 Saturation 86 % (92-99) 91 % (92-99) Arterial Blood pH 7.42 (7.35-7.45) 7.39 (7.35-7.45) Arterial Blood pCO2 at Patient Temp 49 mmHg (35-46) 54 mmHg (35-46) Arterial Blood pO2 at Patient Temp 51 mmHg (65-108) 63 mmHg (65-108) Arterial Blood HCO3 31 mmol/L (21-28) 32 mmol/L (21-28) Arterial Blood Base Excess 5 mmol/L (-3-3) 6 mmol/L (-3-3) FiO2 65/vent 70/vent Laboratory Tests Test 03/04/20 08:00 O2 Saturation 91 % (92-99) Arterial Blood pH 7.39 (7.35-7.45) Arterial Blood pCO2 at Patient Temp 54 mmHg (35-46) Arterial Blood pO2 at Patient Temp 63 mmHg (65-108) Arterial Blood HCO3 32 mmol/L (21-28) Arterial Blood Base Excess 6 mmol/L (-3-3) FiO2 70/vent Medications Active Scripts Medications Dose Route/Sig Max Daily Dose Days Date Category Lisinopril 20 Mg Tablet 1 Tab PO DAILY 02/17/20 Reported Norvasc (Amlodipine Besylate) 5 Mg Tablet 1 Tab PO DAILY 02/17/20 Reported Comments CXR 03/02/20 IMPRESSION: Stable diffuse infiltrate and small pleural effusions. Stable support lines and tubes.. Impression . IMPRESSION: 1. Acute hypoxic respiratory failure secondary to COVID-19 pneumonia/ARDS/acute lung injury--- improving 2. Abnormal CT chest with diffuse and extensive bilateral infiltrates consistent with COVID-19 pneumonia. Cannot exclude superimposed bacterial pneumonia. No evidence of pulmonary embolism. 3. High D-dimer. Commonly seen in patients with COVID-19 pneumonia. We will continue high dose DVT prophylaxis. 4. No significant reported tobacco history. Plan . RECOMMENDATIONS: Continue current vent support Fi02 70% and PEEP 7 Follow CXR/ABG,-- no change today Follow surgery recs for trach placement , not ready yet D/C steroids has completed full 10 day course Zosyn started on 02/16, completed full 10-day course, Levaquin started on 02/18/20, completed full 7-day course, monitor off antibiotics Tube feeding for nutritional support DVT/GI PPX D/W RN and RT Pt. is FULL CODE Critical care time 0830-0900AM poor prognosis, no clinical improvement KYM LOPEZ MD Mar 04, 2020 10:03
--- NOTE | 2020-03-04 10:08 | NUR ---
Turned patient to left side, patient's peak airway pressures were consistently >60 with SPO2 decreasing to the 80s. Patient given bolus of sedation without improvement, so bolus of vecuronium given. After about an hour, peak airway pressures increased again and patient's SPO2 dropped again, turned back on patient's back. Will attempt to turn again later when more stable.
[2020-03-04] MEDS: NYSTATIN TOPICAL POWDER 15GM BOTTLE. TP SCH ×2 (11:17→20:37)
[2020-03-04] MEDS: ACETAMINOPHEN 650 MG/20.3 ML SOLUTION. PEG PRN ×2 (11:28→23:12)
[2020-03-04] MEDS ORDERED: PIP/TAZO PER PHARMACY MC PRN (12:00)
[2020-03-04] MEDS: fentaNYL HIGH DOSE PCA 55 ML IV PRN (12:10)
[2020-03-04] MEDS ORDERED: VANCOMYCIN 1.75 GM in IV NORMAL SALINE 500ML BAG 500 ML IV ONE (13:00)
[2020-03-04] MEDS: PIPERACILLIN/TAZOBACTAM 4.5 GM in IV NORMAL SALINE 100ML 100 ML IV SCH ×2 (13:19→17:27)
[2020-03-04] MEDS: VANCOMYCIN PER PHARMACY MC PRN (14:22)
--- NOTE | 2020-03-04 14:28 | NUR ---
Pharmacy Vancomycin Dosing Note S: Consulted to monitor and dose vancomycin started 03/04/20. O: SRIKANTH DANIELS is a 74 year old F with HCAP. Other Antibiotics: ZOSYN LABS: Last BUN: 14 Last Creatinine: 0.4 Creatinine Clearance: 50 mL/min Last WBC: 10.6 Tmax (past 24 hours): 102.1 Vancomycin Dosing: Dosing Weight: Actual Target Trough: 15-20 A: Based on: VANCO dosing guidelines P: 1. Begin Vancomycin 1750mg LOAD dose, then 1250 mg IV q24h 2. Follow up Trough level on 03/06/20 at 1330 3. Pharmacy will continue to monitor, follow and adjust therapy as needed. KATERIN VILLA [facility], 03/04/20 [id number]
[2020-03-04] MEDS ORDERED: VECURONIUM BROMIDE 50 MG in TOTAL VOLUME 50 ML IV PRN (23:00)
[2020-03-05] VITALS (25 sets, daily range): BP systolic 80–157; BP diastolic 44–67
[2020-03-05] MEDS: PIPERACILLIN/TAZOBACTAM 4.5 GM in IV NORMAL SALINE 100ML 100 ML IV SCH ×5 (00:09→23:46)
[2020-03-05] MEDS: MIDAZOLAM 100mg/100ml NS BAG 100 ML IV PRN ×2 (00:20→10:51)
--- NOTE | 2020-03-05 03:33 | NUR ---
~2300 Dr. Tse paged and returned call. Notified of pt's continued dyssynchrony with ventilator despite PRN vecuronium, peak pressures consistently at 60 and now with desaturations into mid 80's. Orders received.
[2020-03-05] MEDS: FAMOTIDINE 20 MG/2 ML VIAL IVP SCH (07:24)
[2020-03-05] MEDS: ENOXAPARIN 40 MG/0.4 ML SYRINGE. SQ SCH ×2 (07:24→20:51)
[2020-03-05] MEDS: NYSTATIN TOPICAL POWDER 15GM BOTTLE. TP SCH ×2 (07:25→20:52)
[2020-03-05] MEDS: MICONAZOLE NITRATE 2% TOPICAL CREAM 30GM TUBE. TP SCH ×2 (07:25→20:51)
[2020-03-05] MEDS: ACETAMINOPHEN 650 MG/20.3 ML SOLUTION. PEG PRN (07:34)
--- NOTE | 2020-03-05 08:14 | PN ---
DATE: 03/05/2020 SUBJECTIVE: The patient continues to be sedated, intubated and mechanically ventilated. She is now on FiO2 of 100%. She did spike her temperature yesterday up to 102. She was pancultured and she is now back on Zosyn and vancomycin. OBJECTIVE: GENERAL: On examining her, she was pale. No jaundice, cyanosis or thyromegaly. No jugular venous distention. No lower limb edema. VITAL SIGNS: Her heart rate was 88, blood pressure was 91/51, temperature was 99, respiratory rate was 16, and oxygen saturation was 100% on FiO2 of 100%. HEENT: Showed she is normocephalic, atraumatic. She has orotracheal and orogastric tube. NECK: Supple. HEART: Showed normal first and second heart sounds. No gallop, rub or murmur. CHEST: Showed central trachea, equal bilateral chest expansion, air entry, vesicular breath sounds. Could not appreciate any crepitation or rhonchi anteriorly. ABDOMEN: Distended, soft, nontender. NEUROLOGIC: She is heavily sedated. Her intake over the last 24 hours was 1900, output was 1100. LABORATORY DATA: Today's labs are still pending at the time of this dictation. ASSESSMENT: 1. COVID-19 pneumonia. 2. Acute hypoxic respiratory failure. 3. Acute respiratory distress syndrome. 4. Hypertension; however, the patient is borderline hypotensive and her antihypertensive medications were all discontinued. 5. Severe protein-calorie malnutrition with serum albumin only 1.9 g/dL. 6. Elevated D-dimer; however, CT angio of the chest was negative for pulmonary emboli. 7. Hypernatremia, resolved. 8. She did develop subcutaneous emphysema and pneumomediastinum, which has resolved. 9. The patient has spiked her temperature up to 102 yesterday and she was pancultured and was started empirically on Zosyn and vancomycin. PLAN: 1. Obviously to continue mechanical ventilation and wean as tolerated. 2. Continue with IV antibiotic. 3. Continue with DVT and GI prophylaxis. 4. Continue nutritional support. SEUN SOSA MD DR: GUERLINE/gabriela JOB#: [id number] / [id number]
--- NOTE | 2020-03-05 08:31 | RAD ---
XR CHEST 1V INDICATION: Reason: Intubated, increasing peak pressures icu#112 / Spl. Instructions: / History: . COMPARISON STUDY: 03/02/2020. FINDINGS: Life Support Devices: Stable endotracheal tube, enteric tube, right PICC. Lungs: Normal lung volume. Stable bilateral perihilar and basilar heterogeneous opacities. Pleura: Stable small bilateral pleural effusions. Heart and Mediastinum: Stable cardiomediastinal silhouette and great vessels. Bones and Soft Tissues: Stable regional skeleton and soft tissues. IMPRESSION: 1. Stable life support devices. 2. Stable bilateral perihilar and basilar opacities. 3. Stable small bilateral pleural effusions. Electronically signed by: Gilmar Morales MD (03/05/2020 8:19 AM) [id number]
[2020-03-05 08:43] LABS: BASE EXCESS ABG 5 mmol/L (-3-3); HCO3 ABG 32 mmol/L (21-28); PO2 ABG 106 mmHg (65-108); SAT O2 ABG 97 % (92-99)
[2020-03-05 08:44] LABS: CORRECTED PCO2 ABG 63 mmHg; CORRECTED PH ABG 7.33; CORRECTED PO2 ABG 114 mmHg
[2020-03-05 08:47] LABS: PCO2 ABG 60 mmHg (35-46)
[2020-03-05 08:48] LABS: FIO2 ABG 100
--- NOTE | 2020-03-05 09:16 | PDOC ---
SURGICAL PROGRESS NOTE DATE: 03/05/20 TIME: 09:15 Subjective desat noted d/w nursing Vital Signs Vital Signs Date Time Temp Pulse Resp B/P (MAP) Pulse Ox O2 Delivery O2 Flow Rate FiO2 03/05/20 09:00 97 16 85/48 (60) 98 Ventilator 03/05/20 08:00 100.8 100.8 I&O Intake and Output 03/05/20 07:00 Intake Total 3097 ml Output Total 1160 ml Balance 1937 ml IV Total 1186 ml Tube Feeding 1411 ml Other 500 ml Output Urine Total 1160 ml Gastric Drainage Total 0 ml General: Other (sedated ) HEENT: Other (vent) Labs Laboratory Tests Test 03/04/20 08:00 03/05/20 08:35 O2 Saturation 91 % (92-99) 97 % (92-99) Arterial Blood pH 7.39 (7.35-7.45) 7.34 (7.35-7.45) Arterial Blood pCO2 at Patient Temp 54 mmHg (35-46) 60 mmHg (35-46) Arterial Blood pO2 at Patient Temp 63 mmHg (65-108) 106 mmHg (65-108) Arterial Blood HCO3 32 mmol/L (21-28) 32 mmol/L (21-28) Arterial Blood Base Excess 6 mmol/L (-3-3) 5 mmol/L (-3-3) FiO2 70/vent 100 Arterial Blood pH (Temp corrected) 7.33 Arterial Blood pCO2 (Temp correct) 63 mmHg Arterial Blood pO2 (Temp corrected) 114 mmHg Laboratory Tests Test 03/05/20 08:35 O2 Saturation 97 % (92-99) Arterial Blood pH 7.34 (7.35-7.45) Arterial Blood pH (Temp corrected) 7.33 Arterial Blood pCO2 at Patient Temp 60 mmHg (35-46) Arterial Blood pCO2 (Temp correct) 63 mmHg Arterial Blood pO2 at Patient Temp 106 mmHg (65-108) Arterial Blood pO2 (Temp corrected) 114 mmHg Arterial Blood HCO3 32 mmol/L (21-28) Arterial Blood Base Excess 5 mmol/L (-3-3) FiO2 100 Assessment/Plan available as becomes more stable for trach Justicifation of Admission Dx: Justifications for Admission: Justification of Admission Dx: Yes Respiratory Failure: Mechanical Ventilation [employer] Mar 05, 2020 09:16
[2020-03-05 09:25] LABS: HEMATOCRIT 29.7 % (36.0-47.0); HEMOGLOBIN 9.8 g/dL (12.0-15.5); RED BLOOD COUNT 3.33 x10^6/uL (3.50-5.40); RED CELL DISTRIBUTION WIDTH 14.6 % (11.5-14.5); WHITE BLOOD COUNT 9.4 x10^3/uL (4.0-11.0)
[2020-03-05 09:37] LABS: CALCIUM 7.7 mg/dL (8.5-10.1); CREATININE 0.5 mg/dL (0.6-1.0); GFR 120.3
[2020-03-05] MEDS: VANCOMYCIN PER PHARMACY MC PRN (10:15)
--- NOTE | 2020-03-05 10:18 | PDOC ---
PULMONARY PROGRESS NOTES DATE: 03/05/20 TIME: 10:12 Subjective Pt. is now on 100%FIO2/ high and PEEP of 7 high peak airway pressures, no PTX No clinical improvement Vitals Vital Signs Date Time Temp Pulse Resp B/P (MAP) Pulse Ox O2 Delivery O2 Flow Rate FiO2 03/05/20 09:00 97 16 85/48 (60) 98 Ventilator 03/05/20 08:00 100.8 100.8 Comments Pt. seen during visual exam preformed, RRR VENT/ intubated no distress or accessory muscle use no obvious edema or rash Labs Laboratory Tests Test 03/04/20 08:00 03/05/20 08:35 03/05/20 08:55 O2 Saturation 91 % (92-99) 97 % (92-99) Arterial Blood pH 7.39 (7.35-7.45) 7.34 (7.35-7.45) Arterial Blood pCO2 at Patient Temp 54 mmHg (35-46) 60 mmHg (35-46) Arterial Blood pO2 at Patient Temp 63 mmHg (65-108) 106 mmHg (65-108) Arterial Blood HCO3 32 mmol/L (21-28) 32 mmol/L (21-28) Arterial Blood Base Excess 6 mmol/L (-3-3) 5 mmol/L (-3-3) FiO2 70/vent 100 Arterial Blood pH (Temp corrected) 7.33 Arterial Blood pCO2 (Temp correct) 63 mmHg Arterial Blood pO2 (Temp corrected) 114 mmHg White Blood Count 9.4 x10^3/uL (4.0-11.0) Red Blood Count 3.33 x10^6/uL (3.50-5.40) Hemoglobin 9.8 g/dL (12.0-15.5) Hematocrit 29.7 % (36.0-47.0) Mean Corpuscular Volume 89 fL (79-100) Mean Corpuscular Hemoglobin 29 pg (25-35) Mean Corpuscular Hemoglobin Concent 33 g/dL (31-37) Red Cell Distribution Width 14.6 % (11.5-14.5) Platelet Count 242 x10^3/uL (140-400) Sodium Level 142 mmol/L (136-145) Potassium Level 4.0 mmol/L (3.5-5.1) Chloride Level 105 mmol/L (98-107) Carbon Dioxide Level 32 mmol/L (21-32) Anion Gap 5 (6-14) Blood Urea Nitrogen 13 mg/dL (7-20) Creatinine 0.5 mg/dL (0.6-1.0) Estimated GFR (Cockcroft-Gault) 120.3 Glucose Level 188 mg/dL (70-99) Calcium Level 7.7 mg/dL (8.5-10.1) Laboratory Tests Test 03/05/20 08:35 03/05/20 08:55 O2 Saturation 97 % (92-99) Arterial Blood pH 7.34 (7.35-7.45) Arterial Blood pH (Temp corrected) 7.33 Arterial Blood pCO2 at Patient Temp 60 mmHg (35-46) Arterial Blood pCO2 (Temp correct) 63 mmHg Arterial Blood pO2 at Patient Temp 106 mmHg (65-108) Arterial Blood pO2 (Temp corrected) 114 mmHg Arterial Blood HCO3 32 mmol/L (21-28) Arterial Blood Base Excess 5 mmol/L (-3-3) FiO2 100 White Blood Count 9.4 x10^3/uL (4.0-11.0) Red Blood Count 3.33 x10^6/uL (3.50-5.40) Hemoglobin 9.8 g/dL (12.0-15.5) Hematocrit 29.7 % (36.0-47.0) Mean Corpuscular Volume 89 fL (79-100) Mean Corpuscular Hemoglobin 29 pg (25-35) Mean Corpuscular Hemoglobin Concent 33 g/dL (31-37) Red Cell Distribution Width 14.6 % (11.5-14.5) Platelet Count 242 x10^3/uL (140-400) Sodium Level 142 mmol/L (136-145) Potassium Level 4.0 mmol/L (3.5-5.1) Chloride Level 105 mmol/L (98-107) Carbon Dioxide Level 32 mmol/L (21-32) Anion Gap 5 (6-14) Blood Urea Nitrogen 13 mg/dL (7-20) Creatinine 0.5 mg/dL (0.6-1.0) Estimated GFR (Cockcroft-Gault) 120.3 Glucose Level 188 mg/dL (70-99) Calcium Level 7.7 mg/dL (8.5-10.1) Medications Active Scripts Medications Dose Route/Sig Max Daily Dose Days Date Category Lisinopril 20 Mg Tablet 1 Tab PO DAILY 02/17/20 Reported Norvasc (Amlodipine Besylate) 5 Mg Tablet 1 Tab PO DAILY 02/17/20 Reported Comments CXR 03/05/20 worsening bilateral infiltrates Impression . IMPRESSION: 1. Acute hypoxic respiratory failure secondary to COVID-19 pneumonia/ARDS/acute lung injury--- Pt. is now on 100%FIO2/ high and PEEP of 7high peak airway pressures, no PTX/ Worsening ARDS 2. Abnormal CT chest with diffuse and extensive bilateral infiltrates consistent with COVID-19 pneumonia. Cannot exclude superimposed bacterial pneumonia. No evidence of pulmonary embolism. 3. High D-dimer. Commonly seen in patients with COVID-19 pneumonia. We will continue high dose DVT prophylaxis. 4. No significant reported tobacco history. Plan . RECOMMENDATIONS: Continue current vent support Fi02 70% and PEEP 7 Follow CXR/ABG,-- no change today Follow surgery recs for trach placement , not ready yet D/C steroids has completed full 10 day course Zosyn started on 02/16, completed full 10-day course, Levaquin started on 02/18/20, completed full 7-day course, monitor off antibiotics Tube feeding for nutritional support DVT/GI PPX D/W RN and RT Pt. is FULL CODE Critical care time 30 min poor prognosis, clinically worse. d/w daughter. she agrees for DNR If no change by thu, proceed with comfort care KYM LOPEZ MD Mar 05, 2020 10:18
[2020-03-05] MEDS: fentaNYL HIGH DOSE PCA 55 ML IV PRN (10:51)
--- NOTE | 2020-03-05 11:14 | NUR ---
SS following up with discharge planning. SS reviewed pt chart and discussed with pt RN. Pt is currently on the vent at 100%. COVID19 positive. Pt on IV Vancomycin and IV Zosyn. DNR. Not stable. Dr. Virgen discussed with pt's family. Plan to withdraw care on 03/07/2020, if not improved. SS will continue to follow for discharge planning.
[2020-03-05] MEDS ORDERED: VANCOMYCIN 1.25 GM in IV NORMAL SALINE 250ML 250 ML IV SCH (14:00)
--- NOTE | 2020-03-05 17:31 | NUR ---
Wound care Wound care consult for coccyx wound. Discussed with Nany WOLFE who stated her coccyx is reddened but not open, it is covered with foam dressing and pt is too unstable to turn at this time. Family plans to withdraw care on Thursday. WC will sign off due to pt status. Please reconsult if condition improves.
[2020-03-06] VITALS (12 sets, daily range): BP systolic 87–106; BP diastolic 46–55
[2020-03-06] MEDS: MIDAZOLAM 100mg/100ml NS BAG 100 ML IV PRN (04:41)
[2020-03-06] MEDS: PIPERACILLIN/TAZOBACTAM 4.5 GM in IV NORMAL SALINE 100ML 100 ML IV SCH ×2 (05:41→12:00)
[2020-03-06 08:32] LABS: BASE EXCESS ABG 8 mmol/L (-3-3); HCO3 ABG 36 mmol/L (21-28); PO2 ABG 127 mmHg (65-108); SAT O2 ABG 98 % (92-99)
[2020-03-06 08:34] LABS: FIO2 ABG 100; PCO2 ABG 71 mmHg (35-46)
[2020-03-06] MEDS: NYSTATIN TOPICAL POWDER 15GM BOTTLE. TP SCH (08:35)
[2020-03-06] MEDS: MICONAZOLE NITRATE 2% TOPICAL CREAM 30GM TUBE. TP SCH (08:35)
[2020-03-06] MEDS: FAMOTIDINE 20 MG/2 ML VIAL IVP SCH (08:35)
[2020-03-06] MEDS: ENOXAPARIN 40 MG/0.4 ML SYRINGE. SQ SCH (08:35)
--- NOTE | 2020-03-06 09:06 | PN ---
DATE: 03/06/2020 SUBJECTIVE: The patient is resting, slightly propped up in bed, continued to be heavily sedated, intubated and mechanically ventilated. She is now on FiO2 of 100%, although her blood gas seemed to be better today with a pH of 7.32, pCO2 of 71, pO2 of 127 and oxygen saturation was 98% on FiO2 of 100%. According to the nursing staff, the family are considering withdrawal of care, although final decision was not made yet. OBJECTIVE: GENERAL: On examining her, she was pale, no jaundice, cyanosis or thyromegaly. No jugular venous distention. No limb edema. VITAL SIGNS: Her heart rate was 92, blood pressure was 97/49, temperature was 98.2, respiratory rate was 17 and oxygen saturation was 98% on FiO2 of 100%. HEAD, EYES, EARS NOSE AND THROAT: Showed normocephalic, atraumatic. NECK: Supple. No lymphadenopathy, no thyromegaly. HEART: Showed normal first and second heart sounds. No gallop, rub or murmur. CHEST: Clear to auscultation. No crepitation or rhonchi. ABDOMEN: Distended, soft and nontender. NEUROLOGIC: She is heavily sedated. Her intake was 1300 and output was 1150. LABORATORY DATA: As of this morning, her white cell count was 9400, hemoglobin 10, hematocrit 30, MCV 89 and platelet count 242,000. Her chemistry showed a serum sodium 142, potassium 4, chloride 105, bicarbonate 32, anion gap of 5, BUN 13, creatinine 0.5, estimated GFR was 120 mL. Glucose was 188, calcium was 7.7. Her procalcitonin is 0.14. ASSESSMENT: 1. COVID-19 pneumonia. 2. Acute hypoxic respiratory failure. 3. Acute respiratory distress syndrome. 4. Hypertension, however, the patient is borderline hypotensive and her antihypertensive medications were all discontinued. 5. Severe protein-calorie malnutrition with serum albumin is only 1.9 g/dL. 6. Elevated D-dimer; however, CT angio of the chest was negative for pulmonary emboli. 7. Hypernatremia, resolved. 8. She did develop subcutaneous emphysema and pneumomediastinum that has resolved. 9. The patient has spiked her temperature up to 102 Fahrenheit and she is now on antibiotic in the form of Zosyn and vancomycin. PLAN: Continue with mechanical ventilation. Continue with IV antibiotic. Continue with DVT and GI prophylaxis. Continue nutritional support. Await the family decision regarding withdrawal of care. SEUN SOSA MD DR: GUERLINE/gabriela JOB#: [id number] / [id number]
--- NOTE | 2020-03-06 10:39 | NUR ---
Dialysis nurse called this nurse d/t patient being confused and taking bipap tubing apart.
[2020-03-06] MEDS: fentaNYL HIGH DOSE PCA 55 ML IV PRN (12:02)
--- NOTE | 2020-03-06 12:25 | PDOC ---
PULMONARY PROGRESS NOTES DATE: 03/06/20 TIME: 12:20 Subjective Pt. is now on 100%FIO2/ PEEP of 7 No clinical improvement Vitals Vital Signs Date Time Temp Pulse Resp B/P (MAP) Pulse Ox O2 Delivery O2 Flow Rate FiO2 03/06/20 12:02 16 Ventilator 03/06/20 11:52 92 87/49 (62) 100 03/06/20 08:00 97.8 97.8 Comments Pt. seen during visual exam preformed, RRR VENT/ intubated no distress or accessory muscle use no obvious edema or rash Labs Laboratory Tests Test 03/05/20 08:35 03/05/20 08:55 03/06/20 08:10 O2 Saturation 97 % (92-99) 98 % (92-99) Arterial Blood pH 7.34 (7.35-7.45) 7.32 (7.35-7.45) Arterial Blood pH (Temp corrected) 7.33 Arterial Blood pCO2 at Patient Temp 60 mmHg (35-46) 71 mmHg (35-46) Arterial Blood pCO2 (Temp correct) 63 mmHg Arterial Blood pO2 at Patient Temp 106 mmHg (65-108) 127 mmHg (65-108) Arterial Blood pO2 (Temp corrected) 114 mmHg Arterial Blood HCO3 32 mmol/L (21-28) 36 mmol/L (21-28) Arterial Blood Base Excess 5 mmol/L (-3-3) 8 mmol/L (-3-3) FiO2 100 100 White Blood Count 9.4 x10^3/uL (4.0-11.0) Red Blood Count 3.33 x10^6/uL (3.50-5.40) Hemoglobin 9.8 g/dL (12.0-15.5) Hematocrit 29.7 % (36.0-47.0) Mean Corpuscular Volume 89 fL (79-100) Mean Corpuscular Hemoglobin 29 pg (25-35) Mean Corpuscular Hemoglobin Concent 33 g/dL (31-37) Red Cell Distribution Width 14.6 % (11.5-14.5) Platelet Count 242 x10^3/uL (140-400) Sodium Level 142 mmol/L (136-145) Potassium Level 4.0 mmol/L (3.5-5.1) Chloride Level 105 mmol/L (98-107) Carbon Dioxide Level 32 mmol/L (21-32) Anion Gap 5 (6-14) Blood Urea Nitrogen 13 mg/dL (7-20) Creatinine 0.5 mg/dL (0.6-1.0) Estimated GFR (Cockcroft-Gault) 120.3 Glucose Level 188 mg/dL (70-99) Calcium Level 7.7 mg/dL (8.5-10.1) Procalcitonin 0.14 ng/mL (0.00-0.10) Laboratory Tests Test 03/06/20 08:10 O2 Saturation 98 % (92-99) Arterial Blood pH 7.32 (7.35-7.45) Arterial Blood pCO2 at Patient Temp 71 mmHg (35-46) Arterial Blood pO2 at Patient Temp 127 mmHg (65-108) Arterial Blood HCO3 36 mmol/L (21-28) Arterial Blood Base Excess 8 mmol/L (-3-3) FiO2 100 Medications Active Scripts Medications Dose Route/Sig Max Daily Dose Days Date Category Lisinopril 20 Mg Tablet 1 Tab PO DAILY 02/17/20 Reported Norvasc (Amlodipine Besylate) 5 Mg Tablet 1 Tab PO DAILY 02/17/20 Reported Comments CXR 03/05/20 worsening bilateral infiltrates Impression . IMPRESSION: 1. Acute hypoxic respiratory failure secondary to COVID-19 pneumonia/ARDS/acute lung injury--- Pt. is now on 100%FIO2/ high and PEEP of 7high peak airway pressures, no PTX/ Worsening ARDS 2. Abnormal CT chest with diffuse and extensive bilateral infiltrates consistent with COVID-19 pneumonia. Cannot exclude superimposed bacterial pneumonia. No evidence of pulmonary embolism. 3. High D-dimer. Commonly seen in patients with COVID-19 pneumonia. We will continue high dose DVT prophylaxis. 4. No significant reported tobacco history. Plan . RECOMMENDATIONS: Continue current vent support Fi02 100% and PEEP 7 Follow CXR/ABG,-- reduce Fi02 to 80% Follow surgery recs for trach placement , not ready yet D/C steroids has completed full 10 day course continue vanco and Zosyn , repeat culture NGTD Tube feeding for nutritional support DVT/GI PPX D/W RN and RT Pt. is FULL CODE Critical care time 1000-1130AM poor prognosis, If no change by thu, proceed with comfort care KYM LOPEZ MD Mar 06, 2020 12:25
[2020-03-06 12:37] LABS: CREATININE 0.3 mg/dL (0.6-1.0); GFR 216.9
[2020-03-06 12:44] LABS: VANC TR 3.4 mcg/mL (10.0-20.0)
[2020-03-06] MEDS: VANCOMYCIN PER PHARMACY MC PRN (13:14)
--- NOTE | 2020-03-06 13:14 | NUR ---
Pharmacy Vancomycin Dosing Note S:Consulted to monitor and dose vancomycin started 03/04/20. O:SRIKANTH DANIELS is a 74 year old F with HCAP. Height: 5 feet, 6 inches Weight: 77.9 kg [place] Body Weight: 59.30 Adjusted Body Weight: 66.74 Dosing Weight: Actual Other Antibiotics: ZOSYN LABS: Last BUN: 13 Last Creatinine: 0.3 Creatinine Clearance: 51 mL/min Last WBC: 9.4 Tmax (past 24 hours): 98.2 Microbiology: 03/05 BCX PENDING I/O: 2937 / 1085 Drug Levels: Last Trough level: 3.4 on 03/06/20 at 1200 Last dose given 03/05/20 at 1336 Vancomycin Dosing: Loading Dose: 1750 mg x1 Dosing Weight: Actual Target Trough: 15-20 A: Based on: trough level P: 1. Increase to Vancomycin 1250 mg IV q12h 2. Follow up Trough level as needed 3. Pharmacy will continue to monitor, follow and adjust therapy as needed. LEO CUELLO RPH, 03/06/20 [id number]
[2020-03-06] MEDS ORDERED: VANCOMYCIN 1.25 GM in IV NORMAL SALINE 250ML 250 ML IV SCH (14:00)
--- NOTE | 2020-03-06 15:57 | NUR ---
SS following up with discharge planning. SS reviewed pt chart and discussed with pt RN. Pt is currently on the vent at 100%. COVID19 positive. Pt on IV Vancomycin and IV Zosyn. DNR. Withdraw of care tomorrow. SS will continue to follow for discharge planning.
--- NOTE | 2020-03-06 15:57 | NUR ---
Talked with the daughter, Mirella Hughes, she and her father wish to withdraw care at this time. Home is [facility]. Dr Carmencita montenegro
[2020-03-06] MEDS ORDERED: MORPHINE SULFATE 10 MG/ML VIAL. IV ONE ×2 (16:00→17:00)
[2020-03-06] MEDS ORDERED: MORPHINE SULFATE 30 ML IV PRN (17:00)
[2020-03-06] MEDS ORDERED: NALOXONE 0.4 MG/ML VIAL. IV PRN (17:00)
[2020-03-06] MEDS ORDERED: IV NORMAL SALINE 1000ML BAG 1,000 ML IV SCH (17:00)
--- NOTE | 2020-03-06 17:14 | NUR ---
Pt premedicated before pallative extubation. Pt extubated at 1632. Pt with no heart tones, EKG shows asystole, no respiration noted. Pt passed at 1658. Daughter notified.
[2020-03-06] MEDS ORDERED: FAMOTIDINE 20 MG/2 ML VIAL IVP SCH (21:00)
--- NOTE | 2020-04-02 09:24 | DS ---
DATE OF DISCHARGE: 03/06/2020 HOSPITAL COURSE: The patient was a 74-year-old female patient who was transferred from [facility] where she was originally seen at the Emergency Room. She had tested positive for COVID-19 three weeks prior to admission and had had dry hacking cough. Did well until about 2-3 days prior to admission when her cough had gotten progressively worse and started feeling weak. She called her primary care physician and was advised to come to the Emergency Room. Her initial evaluation showed that she had bilateral pneumonic infiltrate and respiratory distress. She was admitted to the ICU of [facility], which she was started on antibiotic. However, she continued to worsen and despite being on 100% nonrebreather mask, her oxygen continued to drop to 70%; and therefore, the patient was intubated, was transferred to [facility] ICU to continue on mechanical ventilation. She was continued also on IV antibiotic, steroids, remdesivir and was followed by the helper teacher and the patient had been continued on mechanical ventilation with an FiO2 of 100% and PEEP of 7, was continued on IV antibiotic and nutritional support through her feeding tube. Unfortunately, despite maximizing her treatment and prolonged stay at the ICU from 02/16-03/06, the patient did not really make any improvement and the family decided to withdraw care. On 03/06/2020 at around 1548, the patient was premedicated before terminal extubation and she was extubated around 1632. Shortly thereafter, the patient's examination showed no spontaneous breathing, no audible heart sounds, no palpable pulsation and she was pronounced at around 1658 on 03/06/2020. CAUSE OF : 1. Cardiopulmonary arrest. 2. Acute hypoxic respiratory failure. 3. COVID-19 pneumonia. 4. Acute respiratory distress syndrome. SEUN SOSA MD DR: GUERLINE/gabriela JOB#: [id number] / [id number]
== END 2020-03-06 18:36 | DRG 207 ==
LOC: UNDOADMIN 11:18 → 1 WEST ICU 11:18 → UNDOADMIN 02-29 11:18 → 1 WEST ICU 02-29 11:18 → UNDODISIN 02-29 15:08 → 1 WEST ICU 03-06 18:30
PROVIDERS: ADMIT Internal Medicine; ATTEND Internal Medicine
PROC: 5A1955Z Respiratory Ventilation, Greater than 96 Consecutive Hours (ICD-10-PCS; principal; 2020-02-17)
PROC: 0BH17EZ Insertion of Endotracheal Airway into Trachea, Via Natural or Artificial Opening (ICD-10-PCS; 2020-02-17)
PROC: 02HV33Z Insertion of Infusion Device into Superior Vena Cava, Percutaneous Approach (ICD-10-PCS; 2020-02-17)
DX: U07.1 COVID-19 (principal); E43 Unspecified severe protein-calorie malnutrition; J12.82 Pneumonia due to coronavirus disease 2019; J80 Acute respiratory distress syndrome; E87.0 Hyperosmolality and hypernatremia; J93.9 Pneumothorax, unspecified; T79.7XXA Traumatic subcutaneous emphysema, initial encounter; I10 Essential (primary) hypertension; Z68.27 Body mass index [BMI] 27.0-27.9, adult; I95.9 Hypotension, unspecified; X58.XXXA Exposure to other specified factors, initial encounter; Y93.89 Activity, other specified; Y92.89 Other specified places as the place of occurrence of the external cause; Y99.8 Other external cause status; Z79.899 Other long term (current) drug therapy
CPT/HCPCS: 36415; 36569; 36600; 71045; 74018; 80048; 80053; 80202; 82565; 82805; 82962; 84145; 85007; 85014; 85018; 85025; 85027; 85379; 87040; 87070; 87077; 87205; 87493; 94002; 94003; J1100; J1650; J1956; J2060; J2250; J2270; J2543; J2704; J3010; J3370; J3490; J7040; J7050; G0378; J7030